=== PATIENT | female | born 1955 | race Caucasian/White ===

== ENCOUNTER → 2016-09-30 | Outpatient (CLI) | payer OTHER ==
--- NOTE | 2016-09-30 16:09 | XR ---
Lumbosacral spine HISTORY: Low back pain, M 54.5 5 views of the lumbar spine No comparisons There is no spondylolysis or spondylolisthesis. Mild levoscoliosis centered at L3. There is multileve l spondylosis present. Loss of disc height at the intervertebral levels. Decreased bone mineralizatio n is present. Schmorl's is present in the posterior elements of the lumbosacral junction. There are a therosclerotic vascular calcifications. IMPRESSION: Degenerative disc disease, osteopenia and scoliosis.
== END | disposition home or self-care (01) ==
LOC: RADXRMAIN 15:07
PROVIDERS: ATTEND Family Medicine
DX: M51.36 Other intervertebral disc degeneration, lumbar region (principal); M85.88 Other specified disorders of bone density and structure, other site; M41.86 Other forms of scoliosis, lumbar region
CPT/HCPCS: 72110

== ENCOUNTER → 2016-10-24 | Outpatient (CLI) | payer OTHER ==
--- NOTE | 2016-10-27 10:09 | MM ---
Reason for exam: screening (asymptomatic). Last mammogram was performed 1 year and 8 months ago. History: Patient is postmenopausal and is nulliparous. Family history of breast cancer in maternal aunt, breast cancer in paternal grandmother, breast cancer in mother at age 68, and breast cancer in paternal aunt at age 70. Physical Findings: A clinical breast exam by your physician is recommended on an annual basis and results should be correlated with mammographic findings. MG Screening Mammo w CAD Bilateral CC and MLO view(s) were taken. Prior study comparison: March 02, 2015, bilateral MG screening mammo w CAD. February 07, 2013, bilateral digital screening mammo w/CAD. There are scattered fibroglandular densities. No significant changes when compared with prior studies. ASSESSMENT: Negative, BI-RAD 1 RECOMMENDATION: Routine screening mammogram of both breasts in 1 year.
== END | disposition home or self-care (01) ==
LOC: RADMAMWWP 16:35
PROVIDERS: ATTEND Obstetrics & Gynecology
DX: Z12.31 Encounter for screening mammogram for malignant neoplasm of breast (principal)

== ENCOUNTER → 2016-12-26 | Outpatient (CLI) | payer OTHER ==
[2016-12-26 08:31] LABS: CH 29.9; CHCM 32.9; HCT 46.6 % (34.0-46.0); HDW 2.46; HGB 14.9 gm/dL (11.4-16.0); MCH 29.2 pg (25.0-35.0); MCV 91.2 fL (80.0-100.0); Mean Platelet Volume 7.2; RBC 5.11 m/uL (3.80-5.40); RDW 13.4 % (11.5-15.5); WBC 6.1 k/uL (3.8-10.6)
[2016-12-26 08:41] LABS: ALT 59 U/L (9-52); AST 30 U/L (14-36); Alkaline Phosphatase 78 U/L (38-126); Anion Gap 12 mmol/L; Blood Urea Nitrogen 15 mg/dL (7-17); Calcium 9.7 mg/dL (8.4-10.2); Carbon Dioxide 25 mmol/L (22-30); Chloride 100 mmol/L (98-107); Cholesterol 216 mg/dL (<200); Glucose 276 mg/dL (74-99); HDL Cholesterol 56 mg/dL (40-60); Non-African American GFR(MDRD) >60 (>60 ml/min/1.73 sqM); Potassium 4.7 mmol/L (3.5-5.1); Sodium 137 mmol/L (137-145); Total Bilirubin 0.8 mg/dL (0.2-1.3); Total Protein 7.3 g/dL (6.3-8.2)
== END | disposition home or self-care (01) ==
LOC: LABWHC1 07:25
PROVIDERS: ATTEND Internal Medicine
DX: E78.00 Pure hypercholesterolemia, unspecified (principal); E03.9 Hypothyroidism, unspecified; E55.9 Vitamin D deficiency, unspecified; I10 Essential (primary) hypertension
CPT/HCPCS: 36415; 80053; 80061; 82306; 84439; 84443; 85027

== ENCOUNTER → 2017-02-10 | Outpatient (CLI) | payer OTHER ==
[2017-02-10 10:23] LABS: T4, Free (Free Thyroxine) 1.3 ng/dL (0.78-2.19)
== END | disposition home or self-care (01) ==
LOC: LABWHC1 08:20
PROVIDERS: ATTEND Internal Medicine
DX: E03.9 Hypothyroidism, unspecified (principal); I10 Essential (primary) hypertension; R73.02 Impaired glucose tolerance (oral); E55.9 Vitamin D deficiency, unspecified
CPT/HCPCS: 36415; 80061; 84439; 84443

== ENCOUNTER → 2017-03-30 | Outpatient (CLI) | payer OTHER ==
[2017-03-30 09:08] LABS: T4, Free (Free Thyroxine) 1.29 ng/dL (0.78-2.19)
[2017-03-30 17:39] LABS: Hemoglobin A1C 7.8 % (4.0-6.0)
== END | disposition home or self-care (01) ==
LOC: LABWHC1 07:05
PROVIDERS: ATTEND Internal Medicine
DX: E03.9 Hypothyroidism, unspecified (principal); E55.9 Vitamin D deficiency, unspecified; R73.02 Impaired glucose tolerance (oral)
CPT/HCPCS: 36415; 82306; 83036; 84439; 84443

== ENCOUNTER → 2017-06-29 | Outpatient (CLI) | payer OTHER ==
[2017-06-29 07:51] LABS: ALT 27 U/L (9-52); AST 19 U/L (14-36); Albumin 4.4 g/dL (3.5-5.0); Alkaline Phosphatase 60 U/L (38-126); Anion Gap 15 mmol/L; Blood Urea Nitrogen 14 mg/dL (7-17); Calcium 9.9 mg/dL (8.4-10.2); Carbon Dioxide 28 mmol/L (22-30); Chloride 102 mmol/L (98-107); Cholesterol 193 mg/dL (<200); Glucose 137 mg/dL (74-99); HDL Cholesterol 60 mg/dL (40-60); LDL Cholesterol,Calculated 108 mg/dL (0-99); Potassium 4.4 mmol/L (3.5-5.1); Sodium 145 mmol/L (137-145); Total Bilirubin 0.7 mg/dL (0.2-1.3); Total Protein 7.3 g/dL (6.3-8.2); Triglycerides 123 mg/dL (<150)
[2017-06-29 08:47] LABS: T4, Free (Free Thyroxine) 1.71 ng/dL (0.78-2.19)
[2017-06-29 11:46] LABS: Hemoglobin A1C 6.9 % (4.0-6.0)
== END | disposition home or self-care (01) ==
LOC: LABWHC1 06:41
PROVIDERS: ATTEND Internal Medicine
DX: E78.2 Mixed hyperlipidemia (principal); E11.9 Type 2 diabetes mellitus without complications; E55.9 Vitamin D deficiency, unspecified; E03.9 Hypothyroidism, unspecified
CPT/HCPCS: 36415; 80053; 80061; 82306; 83036; 84439; 84443

== ENCOUNTER 2017-08-08 08:54 | Emergency (ER) | payer OTHER ==
[2017-08-08 08:59] VITALS: TEMP 97.9
--- NOTE | 2017-08-08 10:11 | ED ---
Fall HPI - General Chief Complaint: Fall Stated Complaint: Fell right side pain Time Seen by Provider: 08/08/17 09:05 Source: patient, RN notes reviewed, old records reviewed Mode of arrival: ambulatory - History of Present Illness Initial Comments: Patient is a 61-year-old female presents emergency Department chief complaint of fall on morning. She reports that she was at work and she tripped over a curb causing the fall. She reports pain over her right shoulder hand, and ribs and bilateral knees. Patient states that she's been able to ambulate without difficulty. She reports over the past few days she's been having increased pain and not seem to get any better. She wanted to come to rule out any fractures. Patient states that she has no peripheral paresthesias. Denies any other head injury or neck injury or loss consciousness related to the fall.Patient denies any recent fever, chills, shortness of breath, chest pain, back pain, abdominal pain, nausea vomiting, numbness or tingling, dysuria or hematuria, constipation or diarrhea, headaches or visual changes, or any other current symptoms - Related Data Home Medications Medication Instructions Recorded Confirmed Ibuprofen [Motrin] 800 mg PO Q8HR PRN 10/02/14 03/24/17 Levothyroxine Sodium [Synthroid] 50 mcg PO DAILY 10/02/14 03/24/17 Verapamil HCl [Verapamil ER] 240 mg PO DAILY 10/02/14 03/24/17 Losartan Potassium [Cozaar] 25 mg PO DAILY 03/24/17 03/24/17 hydrALAZINE HCL 25 mg PO BID 03/24/17 03/24/17 Previous Rx's Medication Instructions Recorded Acetaminophen-Codeine 300-30mg 1 tab PO Q4H PRN 3 Days #18 tablet 08/08/17 [Tylenol w/codeine #3] Ibuprofen [Motrin] 600 mg PO Q6HR PRN #20 tab 08/08/17 Allergies Allergy/AdvReac Type Severity Reaction Status Date / Time amoxicillin trihydrate Allergy Nausea & Verified 08/08/17 08:59 [From Augmentin] Vomiting ciprofloxacin [From Cipro] Allergy Nausea & Verified 08/08/17 08:59 Vomiting ciprofloxacin HCl Allergy Nausea & Verified 08/08/17 08:59 [From Cipro] Vomiting indomethacin [From Indocin] Allergy Unknown Verified 08/08/17 08:59 indomethacin sodium Allergy Unknown Verified 08/08/17 08:59 [From Indocin] phenazopyridine HCl Allergy Unknown Verified 08/08/17 08:59 [From Pyridium] potassium clavulanate Allergy Nausea & Verified 08/08/17 08:59 [From Augmentin] Vomiting sulfamethoxazole Allergy Unknown Verified 08/08/17 08:59 [From Bactrim] trimethoprim [From Bactrim] Allergy Unknown Verified 08/08/17 08:59 Review of Systems ROS Statement: Those systems with pertinent positive or pertinent negative responses have been documented in the HPI. ROS Other: All systems not noted in ROS Statement are negative. Past Medical History Past Medical History: Diabetes Mellitus, Hypertension, Thyroid Disorder Additional Past Medical History / Comment(s): diet controlled diabetes History of Any Multi-Drug Resistant Organisms: None Reported Past Surgical History: Appendectomy, Tubal Ligation Additional Past Surgical History / Comment(s): carpal tunnel surgery bilaterally Past Psychological History: No Psychological Hx Reported Smoking Status: Never smoker Past Alcohol Use History: Rare Past Drug Use History: None Reported General Exam - General Exam Comments Initial Comments: Is a 61-year-old female. Alert and oriented. No significant distress. Limitations: no limitations General appearance: alert, in no apparent distress Head exam: Present: atraumatic, normocephalic, normal inspection Eye exam: Present: normal appearance, PERRL, EOMI. Absent: scleral icterus, conjunctival injection, periorbital swelling ENT exam: Present: normal exam, mucous membranes moist Neck exam: Present: normal inspection. Absent: tenderness, meningismus, lymphadenopathy Respiratory exam: Present: normal lung sounds bilaterally. Absent: respiratory distress, wheezes, rales, rhonchi, stridor Cardiovascular Exam: Present: regular rate, normal rhythm, normal heart sounds. Absent: systolic murmur, diastolic murmur, rubs, gallop, clicks GI/Abdominal exam: Present: soft, normal bowel sounds. Absent: distended, tenderness, guarding, rebound, rigid Extremities exam: Present: full ROM, normal capillary refill. Absent: tenderness, pedal edema, joint swelling, calf tenderness Right Shoulder Exam: Present: tenderness over AC joint. Absent: normal inspection ( Social and separation of the before meals joint.), full ROM (Vision is pain with range of motion of the shoulder.) Upper Arm exam: Present: normal inspection, full ROM Elbow exam: Present: normal inspection, full ROM Forearm Wrist exam: Present: normal inspection, full ROM Hand Wrist exam: Present: normal inspection, full ROM Neuro motor exam: Present: wrist extension intact, thumb opposition intact, thumb IP flexion intact, thumb adduction intact, fingers 2-5 abduction intact Right Upper Leg exam: Present: normal inspection, full ROM Knee exam: Present: full ROM. Absent: normal inspection (Small abrasion over the knee.), tenderness, swelling, abrasion Lower Leg exam: Present: normal inspection, full ROM Ankle exam: Present: normal inspection, full ROM Back exam: Present: normal inspection Neurological exam: Present: alert, oriented X3, CN II-XII intact Psychiatric exam: Present: normal affect, normal mood Skin exam: Present: warm, dry, intact, normal color. Absent: rash Course Vital Signs 08/08/17 08:55 Temperature 97.9 F Pulse Rate 82 Respiratory 18 Rate Blood Pressure 157/90 O2 Sat by Pulse 98 Oximetry Medical Decision Making - Medical Decision Making 61-year-old female with chief complaint of right-sided rib, shoulder and knee pain and left knee pain after fall. Patient had x-rays of the shoulder ribs knees. No evidence of any fractures. There is evidence of before meals separation over the right shoulder. Patient was placed in a sling and wrap of the wrist. Patient informed of x-ray results. Advised follow-up with metallurgical specialist. We'll discharge the Patient was short course of pain medicine. Return parameters were discussed. - Radiology Data Radiology results: report reviewed Patient is right shoulder x-ray shows correlate for before meals separation. Rib x-rays negative for any acute abnormality. No fracture dislocation evident bilateral knees. No fracture dislocation in the hand or wrist. Disposition Clinical Impression: AC separation, Fall, Rib contusion Disposition: HOME SELF-CARE Condition: Good Instructions: Fall Prevention for Older Adults (ED), Tendon Rupture (ED), Shoulder Sprain (ED) Additional Instructions: Patient is follow-up with metallurgical specialist. Wear this sling. Return to the emergency department if any alarming signs or symptoms occur. Prescriptions: Acetaminophen-Codeine 300-30mg [Tylenol w/codeine #3] 1 tab PO Q4H PRN 3 Days # 18 tablet PRN Reason: Pain Ibuprofen [Motrin] 600 mg PO Q6HR PRN #20 tab PRN Reason: Pain Is patient prescribed a controlled substance at d/c from ED?: Yes When asked, does pt state using other controlled substances?: No If prescribed controlled substance>3 days was MAPS reviewed?: Prescribed <3 Days If opioid is for acute pain is fill amount 7 days or less?: Yes If Rx opioid, was Start Talking consent form obtained?: Yes Referrals: Ayaan Peña MD [Primary Care Provider] - 1-2 days Nini Davis PAC [PHYSICIAN MACHINE II CUTTER] - 1-2 days Time of Disposition: 10:43
--- NOTE | 2017-08-08 10:27 | XR ---
Chest x-ray with right RIBS HISTORY: Trauma and pain Frontal view of the chest and 4 views of the right ribs are submitted, no comparisons There is no evident airspace disease, pneumothorax, or pleural effusion. Cardiac mediastinal silhouet te, pulmonary vascularity and zion are within normal limits. No evident displaced rib fracture. IMPRESSION: No acute abnormality evident
--- NOTE | 2017-08-08 10:29 | XR ---
Bilateral knees HISTORY: Pain 2 views of each knee are submitted on a total of 4 images. There is marked osteoarthritic change present bilaterally. No evident joint effusion. Soft tissue angelina cifications are likely vascular within the proximal left leg. There may be loose body within the righ t knee. Bone mineralization maintained. IMPRESSION: No fracture or dislocation evident.
--- NOTE | 2017-08-08 10:32 | XR ---
Right shoulder HISTORY: Trauma and pain 3 views of the right shoulder Arthropathy present at the acromion clavicular joint. Slight distal clavicular superior displacement in relation to the acromion is noted on the frontal view. Bone mineralization is maintained. Right gonzalo ng apex as visualized is normal. IMPRESSION: Correlate for acromioclavicular separation.
--- NOTE | 2017-08-08 10:33 | XR ---
Right hand HISTORY: Trauma and pain 3 views of the right hand Small ossific density at the interphalangeal joint of the first through fourth digits thought to be w ell-corticated and chronic. Some mild osteoarthritic changes are present. Alignment and bone minerali zation are maintained. IMPRESSION: No acute fracture or dislocation.
[2017-08-08 11:10] VITALS: BP 146/79; PULSE 86; RESP 16
== END 2017-08-08 11:10 | disposition home or self-care (01) ==
LOC: EC 08:54
DX: S43.101A Unspecified dislocation of right acromioclavicular joint, initial encounter (principal); S20.211A Contusion of right front wall of thorax, initial encounter; S80.211A Abrasion, right knee, initial encounter; M25.562 Pain in left knee; M79.641 Pain in right hand; E11.9 Type 2 diabetes mellitus without complications; I10 Essential (primary) hypertension; E07.9 Disorder of thyroid, unspecified; Z79.899 Other long term (current) drug therapy; Z88.0 Allergy status to penicillin; Z88.1 Allergy status to other antibiotic agents; Z88.6 Allergy status to analgesic agent; Z98.890 Other specified postprocedural states; W18.09XA Striking against other object with subsequent fall, initial encounter; Y92.69 Other specified industrial and construction area as the place of occurrence of the external cause
CPT/HCPCS: 99284

== ENCOUNTER → 2017-09-25 | Outpatient (CLI) | payer OTHER | END | disposition home or self-care (01) | LOC: LABWHC1 17:13 | PROVIDERS: ATTEND Internal Medicine | DX: E55.9 Vitamin D deficiency, unspecified (principal); E03.9 Hypothyroidism, unspecified | CPT/HCPCS: 36415; 82306; 84443 ==

== ENCOUNTER → 2017-11-19 | Outpatient (CLI) | payer OTHER ==
--- NOTE | 2017-11-19 15:02 | BD ---
EXAMINATION TYPE: Axial Bone Density DATE OF EXAM: 11/19/2017 COMPARISON: 05.06.2013 CLINICAL HISTORY: 62 YR OLD FEMALE.....ICD-10 CODE: Z13.820 SCREENING Height: 62 Weight: 250 FRAX RISK QUESTIONS: NOTHING TO NOTE HERE. RISK FACTORS HISTORY OF: NO FRACTURES SINCE THE AGE OF 50 YRS OLD Postmenopausal woman: YES AT AGE 55, NATURAL MEDICATIONS: Thyroid Medications: YES, GENERIC SYNTHROID, FOR ABOUT 5 YRS Additional Medications: BP MEDS, ANTI-GAS MEDS, VIT D, Additional History: DIABETIC, DIET CONTROLLED, EXAM MEASUREMENTS: Bone mineral densitometry was performed using the [employer] System. Bone mineral density as measured about the Lumbar spine is: ----- L1-L4(G/cm2): 1.360 T Score Values are as follows: ----- L1: 1.9 ----- L2: 1.4 ----- L3: 1.6 ----- L4: 1.1 ----- L1-L4: 1.5 Bone mineral density has: Increased 5.3% since study of: 05.06.2013 Bone mineral density about the R hip (g/cm2): 1.136 Bone mineral density about the L hip (g/cm2): 1.141 T Score values are as follows: -----R Neck: 0.1 -----L Neck: -0.2 -----R Total: 1.0 -----L Total: 1.1 Bone mineral density has: Decreased -1.3% since study of: 05.06.2013 FRAX%s: THERE IS A 5.6% CHANCE FOR A MAJOR OSTEOPOROTIC FX AND A 0.1% FOR HIP FX.....PROBABILITY OF FX IN 10 YRS TIME IMPRESSION: Normal (Values between +1 and -1 indicate normal bone mass). Consider repeating this study in 5 year s or sooner if there is some new clinical indication. NOTE: T-SCORE=SD OF THE YOUNG ADULT MEAN.
--- NOTE | 2017-11-23 08:46 | MM ---
Reason for exam: screening (asymptomatic). Last mammogram was performed 1 year and 1 month ago. History: Patient is postmenopausal and is nulliparous. Family history of breast cancer in maternal aunt, breast cancer in paternal grandmother, breast cancer in mother at age 68, and breast cancer in paternal aunt at age 70. Physical Findings: A clinical breast exam by your physician is recommended on an annual basis and results should be correlated with mammographic findings. MG Screening Mammo w CAD Bilateral CC and MLO view(s) were taken. Prior study comparison: October 24, 2016, bilateral MG screening mammo w CAD. March 02, 2015, bilateral MG screening mammo w CAD. The breast tissue is almost entirely fat. No significant changes when compared with prior studies. ASSESSMENT: Benign, BI-RAD 2 RECOMMENDATION: Routine screening mammogram of both breasts in 1 year.
== END | disposition home or self-care (01) ==
LOC: RADMAMWWP 11:53
PROVIDERS: ATTEND Obstetrics & Gynecology
DX: Z12.31 Encounter for screening mammogram for malignant neoplasm of breast (principal); Z13.820 Encounter for screening for osteoporosis
CPT/HCPCS: 77067; 77080

== ENCOUNTER → 2017-12-19 | Outpatient (CLI) | payer MEDICARE, OTHER ==
[2017-12-19 18:32] LABS: Hemoglobin A1C 6.8 % (4.0-6.0)
== END | disposition home or self-care (01) ==
LOC: LABWHC1 09:45
PROVIDERS: ATTEND Internal Medicine
DX: E03.9 Hypothyroidism, unspecified (principal); E55.9 Vitamin D deficiency, unspecified; E11.9 Type 2 diabetes mellitus without complications
CPT/HCPCS: 36415; 82306; 83036; 84443

== ENCOUNTER → 2018-11-12 | Outpatient (CLI) | payer MEDICARE ==
[2018-11-12 08:05] LABS: HCT 42.3 % (34.0-46.0); HGB 13.9 gm/dL (11.4-16.0); MCV 91.1 fL (80.0-100.0); Mean Platelet Volume 5.9; Platelet Count 271 k/uL (150-450); RBC 4.64 m/uL (3.80-5.40); RDW 13.5 % (11.5-15.5); WBC 5.6 k/uL (3.8-10.6)
[2018-11-12 13:54] LABS: African American GFR (CKD) 106.9 (60.0-200.0); Albumin 4.7 g/dL (3.80-4.90); Albumin/Globulin Ratio 2.04 (1.60-3.17); Anion Gap 10.7 mmol/L (4.00-12.00); BUN/Creat Ratio 25.71 Ratio (12.00-20.00); Calcium 9.7 mg/dL (8.7-10.3); Carbon Dioxide 25.3 mmol/L (21.6-31.8); Chol/HDL Ratio 3.25; Globulin 2.3 g/dL (1.6-3.3); Potassium 4.5 mmol/L (3.5-5.5); Total Bilirubin 0.6 mg/dL (0.3-1.2)
[2018-11-12 14:31] LABS: Hemoglobin A1C 7.3 % (4.0-6.0)
== END | disposition home or self-care (01) ==
LOC: LABWHC1 07:21
PROVIDERS: ATTEND Internal Medicine
DX: E78.2 Mixed hyperlipidemia (principal); E11.9 Type 2 diabetes mellitus without complications; E55.9 Vitamin D deficiency, unspecified; I10 Essential (primary) hypertension; E03.9 Hypothyroidism, unspecified
CPT/HCPCS: 36415; 80053; 80061; 82043; 82306; 82570; 83036; 84443; 85027

== ENCOUNTER → 2019-01-26 | Outpatient (CLI) | payer MEDICARE ==
--- NOTE | 2019-01-27 13:43 | MM ---
Reason for exam: screening (asymptomatic). Last mammogram was performed 1 year and 2 months ago. History: Patient is postmenopausal and is nulliparous. Family history of breast cancer in maternal aunt, breast cancer in paternal grandmother, breast cancer in mother at age 68, and breast cancer in paternal aunt at age 70. Physical Findings: A clinical breast exam by your physician is recommended on an annual basis and results should be correlated with mammographic findings. MG 3D Screening Mammo W/Cad Bilateral CC and MLO view(s) were taken. Prior study comparison: November 19, 2017, bilateral MG screening mammo w CAD. October 24, 2016, bilateral MG screening mammo w CAD. There are scattered fibroglandular densities. No significant changes when compared with prior studies. ASSESSMENT: Benign, BI-RAD 2 RECOMMENDATION: Routine screening mammogram of both breasts in 1 year.
== END | disposition home or self-care (01) ==
LOC: RADMAMWWP 07:21
PROVIDERS: ATTEND Obstetrics & Gynecology
DX: Z12.31 Encounter for screening mammogram for malignant neoplasm of breast (principal)
CPT/HCPCS: 77063; 77067

== ENCOUNTER → 2019-09-09 | Outpatient (CLI) | payer MEDICARE ==
[2019-09-09 07:46] LABS: HCT 41.7 % (34.0-46.0); HGB 13.5 gm/dL (11.4-16.0); MCH 29.6 pg (25.0-35.0); MCHC 32.3 g/dL (31.0-37.0); MCV 91.5 fL (80.0-100.0); Mean Platelet Volume 7.4; Platelet Count 239 k/uL (150-450); RBC 4.56 m/uL (3.80-5.40); RDW 13.5 % (11.5-15.5); WBC 6.2 k/uL (3.8-10.6)
[2019-09-09 11:54] LABS: Chol/HDL Ratio 3.54; LDL Cholesterol,Calculated 123.2 mg/dL (0.0-131.0); VLDL Calculation 13.8 mg/dL (5.00-40.00)
[2019-09-09 18:18] LABS: Microalbumin Creatinine Ratio <30 mg/g Creat (0-30); Urine Creatinine 54.1 mg/dL
== END | disposition home or self-care (01) ==
LOC: LABWHC1 07:00
PROVIDERS: ATTEND Internal Medicine
DX: E78.2 Mixed hyperlipidemia (principal); E55.9 Vitamin D deficiency, unspecified; I10 Essential (primary) hypertension; E03.9 Hypothyroidism, unspecified; E11.9 Type 2 diabetes mellitus without complications
CPT/HCPCS: 36415; 80061; 82043; 82306; 82570; 84443; 85027

== ENCOUNTER → 2020-02-28 | Outpatient (CLI) | payer MEDICARE ==
--- NOTE | 2020-02-29 11:30 | MM ---
Reason for exam: screening (asymptomatic). Last mammogram was performed 1 year and 1 month ago. History: Patient is postmenopausal and is nulliparous. Family history of breast cancer in maternal aunt, breast cancer in paternal grandmother, breast cancer in mother at age 68, and breast cancer in paternal aunt at age 70. Physical Findings: A clinical breast exam by your physician is recommended on an annual basis and results should be correlated with mammographic findings. MG 3D Screening Mammo W/Cad Bilateral CC and MLO view(s) were taken. Prior study comparison: January 26, 2019, bilateral MG 3d screening mammo w/cad. November 19, 2017, bilateral MG screening mammo w CAD. There are benign appearing round calcifications in the left breast. There is no discrete abnormality. ASSESSMENT: Benign, BI-RAD 2 RECOMMENDATION: Routine screening mammogram of both breasts in 1 year.
== END | disposition home or self-care (01) ==
LOC: RADMAMWWP 07:27
PROVIDERS: ATTEND Obstetrics & Gynecology
DX: Z12.31 Encounter for screening mammogram for malignant neoplasm of breast (principal)
CPT/HCPCS: 77063; 77067

== ENCOUNTER → 2020-10-02 | Outpatient (CLI) | payer MEDICARE ==
[2020-10-02 18:59] LABS: Hemoglobin A1C 6.4 % (4.0-6.0)
[2020-10-02 20:14] LABS: African American GFR (CKD) 105.4 (60.0-200.0); Albumin 4.4 g/dL (3.80-4.90); Albumin/Globulin Ratio 1.76 (1.60-3.17); Anion Gap 9.9 mmol/L (4.00-12.00); Calcium 9.4 mg/dL (8.7-10.3); Carbon Dioxide 25.1 mmol/L (21.6-31.8); Chol/HDL Ratio 3.53; Globulin 2.5 g/dL (1.6-3.3); LDL Cholesterol,Calculated 114.8 mg/dL (0.0-131.0); Non-African American GFR(CKD) 90.9 (60.0-200.0); Potassium 4.1 mmol/L (3.5-5.5); Total Bilirubin 0.7 mg/dL (0.3-1.2); Total Protein 6.9 g/dL (6.2-8.2); VLDL Calculation 24.2 mg/dL (5.00-40.00)
== END | disposition home or self-care (01) ==
LOC: LABWHC1 08:13
PROVIDERS: ATTEND Nurse Practitioner
DX: Z00.00 Encounter for general adult medical examination without abnormal findings (principal); E03.9 Hypothyroidism, unspecified; E11.9 Type 2 diabetes mellitus without complications; E55.9 Vitamin D deficiency, unspecified; E66.01 Morbid (severe) obesity due to excess calories
CPT/HCPCS: 36415; 80053; 80061; 82306; 83036; 84443

== ENCOUNTER 2021-02-13 16:16 | Inpatient (IN) | payer MEDICARE ==
--- NOTE | 2021-02-13 17:29 | ED ---
General Adult HPI <Michelle Steven - Last Filed: 02/13/21 17:29> - General Source: RN notes reviewed, old records reviewed <Uriah Mejia - Last Filed: 02/14/21 00:21> - General Stated complaint: Low O2 83-85, Home pulseox Time Seen by Provider: 02/13/21 17:27 - History of Present Illness Initial comments: Seen in triage for ATP purposes: 65 year-old female patient presents to the emergency department for evaluation of persistent shortness of breath and cough. She tested positive for COVID yesterday at the [facility], but has been having symptoms for over 12 days. Did have O2 saturation in the 80s today so her physician sent her in for evaluation. Reports body aches, shortness of breath, nausea, and generalized weakness. (Michelle Steven) Patient is a 65-year-old female with past medical history remarkable for diet- controlled diabetes mellitus who presents emergency Department complaining of worsening Covid symptoms. She has had symptoms for at least one week. Tested positive for Covid yesterday. Presents emergency Department because at home, oxygen saturation level dropped into the 80%'s. Currently endorses worsening exertional shortness of breath. Endorses other URI symptoms including rhinorrhea. Denies any chest pain, abdominal pain, nausea, vomiting, diarrhea. Patient was not vaccinated for COVID-19. She has no other acute complaints at this time. Is not normally on oxygen at home. Has no history of lung disease. I evaluated the patient when she was placed in a room.Endorses body aches, nausea but no vomiting, as well as generalized weakness.Patient was evaluated when she was placed in a room. (Uriah Mejia) - Related Data Home Medications Medication Instructions Recorded Confirmed Ibuprofen [Motrin] 400 mg PO Q8HR PRN 10/02/14 02/13/21 Verapamil HCl [Verapamil ER] 240 mg PO DAILY 10/02/14 02/13/21 Losartan Potassium [Cozaar] 25 mg PO DAILY 03/24/17 02/13/21 Cider Vinegar [Apple Cider Vinegar] 300 mg PO DAILY 02/13/21 02/13/21 Ergocalciferol (Vitamin D2) 1,250 mcg PO IBARRA 02/13/21 02/13/21 [Drisdol (50,000 Iu)] Levothyroxine Sodium 112 mcg PO DAILY 02/13/21 02/13/21 Allergies Allergy/AdvReac Type Severity Reaction Status Date / Time amoxicillin trihydrate Allergy Nausea & Verified 02/13/21 21:27 [From Augmentin] Vomiting ciprofloxacin [From Cipro] Allergy Nausea & Verified 02/13/21 21:27 Vomiting ciprofloxacin HCl Allergy Nausea & Verified 02/13/21 21:27 [From Cipro] Vomiting indomethacin [From Indocin] Allergy Rash/Hives Verified 02/13/21 21:27 indomethacin sodium Allergy Rash/Hives Verified 02/13/21 21:27 [From Indocin] phenazopyridine HCl Allergy Rash/Hives Verified 02/13/21 21:27 [From Pyridium] potassium clavulanate Allergy Nausea & Verified 02/13/21 21:27 [From Augmentin] Vomiting sulfamethoxazole Allergy Rash/Hives Verified 02/13/21 21:27 [From Bactrim] trimethoprim [From Bactrim] Allergy Rash/Hives Verified 02/13/21 21:27 Review of Systems ROS Other: All systems not noted in ROS Statement are negative. <Michelle Steven - Last Filed: 02/13/21 17:29> ROS Other: All systems not noted in ROS Statement are negative. <Uriah Mejia - Last Filed: 02/14/21 00:21> ROS Statement: Those systems with pertinent positive or pertinent negative responses have been documented in the HPI. Review of Systems: CONST: Denies fever EYES: Denies blurry vision ENT: Denies nasal congestion C/V: Denies Chest pain RESP: Endorses shortness of breath GI: Denies abdominal pain : Denies dysuria SKIN: Denies rash. MSK: Denies joint pain. NEURO: Denies headache (Uriah Mejia) Past Medical History Past Medical History: Diabetes Mellitus, Hypertension, Thyroid Disorder Additional Past Medical History / Comment(s): diet controlled diabetes History of Any Multi-Drug Resistant Organisms: None Reported Past Surgical History: Appendectomy, Tubal Ligation Additional Past Surgical History / Comment(s): carpal tunnel surgery bilaterally Past Psychological History: No Psychological Hx Reported Past Alcohol Use History: Rare Past Drug Use History: None Reported <Michelle Steven - Last Filed: 02/13/21 17:29> General Exam <Uriah Mejia - Last Filed: 02/14/21 00:21> - General Exam Comments Initial Comments: General: Appears in no acute distress. HEAD: Normal with no signs of head trauma. EYES: PERRLA, EOMI, conjunctiva normal, no discharge. ENT: Hearing grossly intact, normal oropharynx. RESPIRATORY: Coarse breath sounds bilaterally. No obvious wheezes or rhonchi. No increased work of breathing. Patient is hypoxic, from 87-91% on room air. Hypoxic to 81% on exertion. C/V: Regular rate and rhythm. S1 and S2 auscultated, no edema, peripheral pulses 2+ and intact throughout ABD: Abd is soft, nontender, nondistended EXT: Normal range of motion, no obvious deformity SKIN: No rashes or lesions observed on exposed skin. NEURO: Alert and oriented x 4. Cranial nerves II-XII intact. No focal sensory or strength deficits. (Uriah Mejia) Course Vital Signs 02/13/21 02/13/21 02/13/21 17:26 19:53 20:36 Temperature 98.1 F 98.8 F Pulse Rate 84 76 76 Respiratory 20 18 18 Rate Blood Pressure 131/67 134/69 O2 Sat by Pulse 91 L 89 L 95 Oximetry 02/13/21 22:58 Temperature Pulse Rate 75 Respiratory 18 Rate Blood Pressure 156/133 O2 Sat by Pulse 95 Oximetry Medical Decision Making - Lab Data Result diagrams: 02/13/21 20:21 02/13/21 21:19 - EKG Data -: EKG Interpreted by Wa <Uriah Mejia - Last Filed: 02/14/21 00:21> - Medical Decision Making Based on the patient's presentation and physical exam, she appears to be expressing acute hypoxic respiratory failure secondary to COVID-19 pneumonia. She is on vaccinated. Patient will be placed on oxygen, we will obtain COVID-19 swabs, and COVID-19 workup including EKG, chest x-ray, d-dimer, troponin, basic labs. She was in agreement this plan. She'll be started on Decadron 6 mg twice a day as well as when necessary Tylenol and albuterol. She will require admission to the hospital. Patient's EKG shows no signs of acute ischemia.Patient's chest x-ray shows acute interstitial pulmonary infiltrates likely secondary to COVID-19 infection. Laboratory studies are remarkable for an elevated d-dimer of 1.2. Lactate is within normal limits. LDH is 1000, CRP is 15. Troponin is negative. Covid is positive. On reevaluation, patient's pressure levels improved on 2 L nasal cannula. I discussed with the patient that due to her elevated d-dimer, would like to obtain a CT PE to all the possibility of pulmonary embolism. She was in a greement this plan. CT PE showed no PE, and extensive ground glass opacities. I spoke with the admitting team under Dr. Miller as the patient's PCP works in the same office as Dr. Peña, and she sees RIGGER APPRENTICE Ricky in that office, all of which admit to Paul's group. He accepted the patient. Patient will be admitted in serous condition to telemetry bed. Dr. Flowers of pulmonology was consulted for evaluation in the morning. (Uriah Mejia) - Lab Data Lab Results 02/13/21 02/13/21 02/13/21 Range/Units 20:21 20:21 20:21 WBC 8.2 (3.8-10.6) k/uL RBC 4.66 (3.80-5.40) m/uL Hgb 14.5 (11.4-16.0) gm/dL Hct 41.2 (34.0-46.0) % MCV 88.3 (80.0-100.0) fL MCH 31.1 (25.0-35.0) pg MCHC 35.2 (31.0-37.0) g/dL RDW 13.0 (11.5-15.5) % Plt Count 245 (150-450) k/uL MPV 8.5 Neutrophils % 80 % Lymphocytes % 11 % Monocytes % 4 % Eosinophils % 0 % Basophils % 1 % Neutrophils # 6.5 (1.3-7.7) k/uL Lymphocytes # 0.9 L (1.0-4.8) k/uL Monocytes # 0.4 (0-1.0) k/uL Eosinophils # 0.0 (0-0.7) k/uL Basophils # 0.1 (0-0.2) k/uL PT (9.0-12.0) sec INR (<1.2) APTT (22.0-30.0) sec D-Dimer (<0.60) mg/L FEU Sodium (137-145) mmol/L Potassium (3.5-5.1) mmol/L Chloride (98-107) mmol/L Carbon Dioxide (22-30) mmol/L Anion Gap mmol/L BUN (7-17) mg/dL Creatinine (0.52-1.04) mg/dL Est GFR (CKD-EPI)AfAm (>60 ml/min/1.73 sqM) Est GFR (CKD-EPI)NonAf (>60 ml/min/1.73 sqM) Glucose (74-99) mg/dL Plasma Lactic Acid Smooth 1.2 (0.7-2.0) mmol/L Calcium (8.4-10.2) mg/dL Magnesium (1.6-2.3) mg/dL Total Bilirubin (0.2-1.3) mg/dL AST (14-36) U/L ALT (4-34) U/L Alkaline Phosphatase (38-126) U/L Lactate Dehydrogenase (313-618) U/L Troponin I (0.000-0.034) ng/mL C-Reactive Protein (<1.0) mg/dL Total Protein (6.3-8.2) g/dL Albumin (3.5-5.0) g/dL Coronavirus (PCR) Detected A (Not Detectd) 02/13/21 02/13/21 02/13/21 Range/Units 21:19 21:19 21:19 WBC (3.8-10.6) k/uL RBC (3.80-5.40) m/uL Hgb (11.4-16.0) gm/dL Hct (34.0-46.0) % MCV (80.0-100.0) fL MCH (25.0-35.0) pg MCHC (31.0-37.0) g/dL RDW (11.5-15.5) % Plt Count (150-450) k/uL MPV Neutrophils % % Lymphocytes % % Monocytes % % Eosinophils % % Basophils % % Neutrophils # (1.3-7.7) k/uL Lymphocytes # (1.0-4.8) k/uL Monocytes # (0-1.0) k/uL Eosinophils # (0-0.7) k/uL Basophils # (0-0.2) k/uL PT 10.0 (9.0-12.0) sec INR 0.9 (<1.2) APTT 21.7 L (22.0-30.0) sec D-Dimer 1.20 H (<0.60) mg/L FEU Sodium 132 L (137-145) mmol/L Potassium 3.5 (3.5-5.1) mmol/L Chloride 96 L (98-107) mmol/L Carbon Dioxide 26 (22-30) mmol/L Anion Gap 10 mmol/L BUN 13 (7-17) mg/dL Creatinine 0.57 (0.52-1.04) mg/dL Est GFR (CKD-EPI)AfAm >90 (>60 ml/min/1.73 sqM) Est GFR (CKD-EPI)NonAf >90 (>60 ml/min/1.73 sqM) Glucose 206 H (74-99) mg/dL Plasma Lactic Acid Smooth (0.7-2.0) mmol/L Calcium 8.0 L (8.4-10.2) mg/dL Magnesium 1.9 (1.6-2.3) mg/dL Total Bilirubin 1.0 (0.2-1.3) mg/dL AST 53 H (14-36) U/L ALT 37 H (4-34) U/L Alkaline Phosphatase 56 (38-126) U/L Lactate Dehydrogenase 1066 H (313-618) U/L Troponin I <0.012 (0.000-0.034) ng/mL C-Reactive Protein 15.5 H (<1.0) mg/dL Total Protein 6.2 L (6.3-8.2) g/dL Albumin 3.4 L (3.5-5.0) g/dL Coronavirus (PCR) (Not Detectd) - EKG Data EKG Comments: 12-lead Electrocardiogram Interpretation Note EKG was reviewed and interpreted by myself. 12-lead ECG performed at 2030 is interpreted by me as revealing normal sinus rhythm at a rate of 73 beats per minute. Slight left axis deviation. ND intervals 170 ms, QRS duration is 88 ms, QTc is 438 ms.. There were no ST or T wave abnormalities to suggest myocardial ischemia or injury. R wave progression across the precordium was delayed.. By my interpretation this EKG is non-diagnostic for acute ischemia. (Uriah Morales) Critical Care Time Critical Care Time: Yes Total Critical Care Time: 30 <Uriah Mejia - Last Filed: 02/14/21 00:21> Critical Care Time: Upon my evaluation, this patient had a high probability of imminent or life- threatening deterioration due to hypoxic respiratory failure secondary to COVID- 19 pneumonia, which required my direct attention, intervention, and personal management. I have personally provided 30 minutes of critical care time exclusive of time spent on separately billable procedures. Time includes review of laboratory data, radiology results, discussion with consultants, and monitoring for potential decompensation. Interventions were performed as documented in my note. (Uriah Mejia) Disposition <Michelle Steven - Last Filed: 02/13/21 17:29> <Uriah Mejia - Last Filed: 02/14/21 00:21> Clinical Impression: Pneumonia due to COVID-19 virus, Elevated d-dimer, Acute respiratory failure with hypoxia Disposition: ADMITTED IP TO THIS HOSP Condition: Serious
--- NOTE | 2021-02-13 17:56 | XR ---
EXAMINATION TYPE: XR chest 2V DATE OF EXAM: 02/13/2021 COMPARISON: 08/08/2017 HISTORY: Right-sided rib pain TECHNIQUE: 2 views FINDINGS: There is some pulmonary diffuse interstitial edema. Heart size is normal. There is no defin ite pleural effusion. There no hilar masses. Mediastinum is normal. IMPRESSION: There is interstitial pulmonary edema which is new compared to old exam. This could be ac inupiat pneumonia.
[2021-02-13] MEDS ORDERED: ALBUTEROL HFA INHALER INHALATION PRN (20:17)
[2021-02-13] MEDS ORDERED: ACETAMINOPHEN TAB 325 MG TAB PO PRN (20:17)
[2021-02-13 20:33] LABS: Basophils # (A) 0.1 k/uL (0-0.2); Basophils % (A) 1 %; Eosinophils % (A) 0 %; HCT 41.2 % (34.0-46.0); HGB 14.5 gm/dL (11.4-16.0); Lymphocytes # (A) 0.9 k/uL (1.0-4.8); Lymphocytes % (A) 11 %; MCH 31.1 pg (25.0-35.0); MCHC 35.2 g/dL (31.0-37.0); MCV 88.3 fL (80.0-100.0); Mean Platelet Volume 8.5; Monocytes # (A) 0.4 k/uL (0-1.0); Monocytes % (A) 4 %; Neutrophils # (A) 6.5 k/uL (1.3-7.7); Neutrophils % (A) 80 %; Platelet Count 245 k/uL (150-450); RBC 4.66 m/uL (3.80-5.40); WBC 8.2 k/uL (3.8-10.6)
[2021-02-13] MEDS: DEXAMETHASONE SOD PHOSPHATE 10 MG/ML 1 ML VIAL IVP SCH (20:34)
[2021-02-13 21:46] LABS: ALT 37 U/L (4-34); AST 53 U/L (14-36); African American GFR (CKD) >90 (>60 ml/min/1.73 sqM); Albumin 3.4 g/dL (3.5-5.0); Alkaline Phosphatase 56 U/L (38-126); Anion Gap 10 mmol/L; Blood Urea Nitrogen 13 mg/dL (7-17); Carbon Dioxide 26 mmol/L (22-30); Chloride 96 mmol/L (98-107); Glucose 206 mg/dL (74-99); LDH 1066 U/L (313-618); Magnesium 1.9 mg/dL (1.6-2.3); Non-African American GFR(CKD) >90 (>60 ml/min/1.73 sqM); Potassium 3.5 mmol/L (3.5-5.1); Sodium 132 mmol/L (137-145); Total Protein 6.2 g/dL (6.3-8.2)
[2021-02-13 21:51] LABS: INR 0.9 (<1.2); Partial Thromboplastin Time 21.7 sec (22.0-30.0)
[2021-02-13 22:05] LABS: C Reactive Protein 15.5 mg/dL (<1.0)
[2021-02-13] MEDS ORDERED: methylPREDNISolone SOD SUCCI 125 MG/2 ML VIAL IV STA (22:35)
[2021-02-13] MEDS ORDERED: FAMOTIDINE 20 MG/2 ML VIAL IV STA (22:35)
[2021-02-13] MEDS ORDERED: diphenhydrAMINE 50 MG/ML 1 ML VIAL IVP STA (22:35)
[2021-02-13] MEDS ORDERED: NALOXONE 0.4 MG/ML 1 ML VIAL IV PRN (23:13)
--- NOTE | 2021-02-13 23:48 | CT ---
EXAMINATION TYPE: CT chest angio for PE DATE OF EXAM: 02/13/2021 COMPARISON: None HISTORY: elevated D-dimer CT DLP: 1223 mGycm Automated exposure control for dose reduction was used. CONTRAST: Performed with IV Contrast, patient injected with 70 mL of Isovue 370. Images obtained from the thoracic inlet to the diaphragm with IV contrast. There are Three-D postproc essed images. There is extensive patchy interstitial groundglass pulmonary infiltrates throughout both lungs. Heart appears slightly enlarged. There is no pericardial effusion. There is no mediastinal adenopathy. The re are no hilar masses. There is normal contrast opacification of the pulmonary arteries. There are n o filling defects. The bony thorax is intact. There is no thoracic compression fracture. Sternum is intact. IMPRESSION: No evidence of pulmonary embolism. Extensive bilateral interstitial groundglass pneumonia.
[2021-02-14 08:08] LABS: ALT 40 U/L (4-34); AST 45 U/L (14-36); African American GFR (CKD) >90 (>60 ml/min/1.73 sqM); Albumin 3.5 g/dL (3.5-5.0); Alkaline Phosphatase 68 U/L (38-126); Anion Gap 8 mmol/L; Blood Urea Nitrogen 13 mg/dL (7-17); Calcium 8.7 mg/dL (8.4-10.2); Carbon Dioxide 28 mmol/L (22-30); Chloride 100 mmol/L (98-107); Glucose 311 mg/dL (74-99); Non-African American GFR(CKD) >90 (>60 ml/min/1.73 sqM); Potassium 4.4 mmol/L (3.5-5.1); Sodium 136 mmol/L (137-145); Total Bilirubin 0.9 mg/dL (0.2-1.3); Total Protein 6.6 g/dL (6.3-8.2)
[2021-02-14 08:09] LABS: HCT 42.2 % (34.0-46.0); HGB 14.3 gm/dL (11.4-16.0); MCH 30.7 pg (25.0-35.0); MCHC 33.8 g/dL (31.0-37.0); MCV 90.7 fL (80.0-100.0); Mean Platelet Volume 7.9; Platelet Count 281 k/uL (150-450); RBC 4.65 m/uL (3.80-5.40); RDW 13.5 % (11.5-15.5); WBC 5.4 k/uL (3.8-10.6)
[2021-02-14] MEDS: LOSARTAN 25 MG TAB PO SCH (08:34)
[2021-02-14] MEDS: ENOXAPARIN 40 MG/0.4 ML SYRINGE SQ SCH (08:35)
[2021-02-14] MEDS: LEVOTHYROXINE 112 MCG TAB PO SCH (08:35)
[2021-02-14] MEDS: DEXAMETHASONE SOD PHOSPHATE 10 MG/ML 1 ML VIAL IVP SCH ×2 (08:35→20:51)
[2021-02-14] MEDS ORDERED: VERAPAMIL SR 240 MG TABLET.ER PO SCH (09:00)
[2021-02-14 09:16] LABS: Lymphocytes # (M) 0.38 k/uL (1.0-4.8); Monocytes # (M) 0.05 k/uL (0-1.0); Neutrophils # (M) 4.97 k/uL (1.3-7.7); Neutrophils % (M) 92 %; Nucleated Red Blood Cells 0 /100 WBC (0-0); Total Cells Counted 100
[2021-02-14] MEDS: PANTOPRAZOLE 40 MG TABLET PO SCH (10:40)
[2021-02-14] MEDS ORDERED: LOPERAMIDE 2 MG CAP PO PRN (11:46)
[2021-02-14 12:01] LABS: Glucose,Whole Blood 356 mg/dL (75-99)
[2021-02-14] MEDS: INSULIN ASPART (NovoLOG) 100 UNIT/ML VIAL SQ SCH ×3 (12:27→20:51)
--- NOTE | 2021-02-14 13:34 | P.HPIM ---
History of Present Illness H&P Date: 02/14/21 HISTORY OF PRESENT ILLNESS This is a 65-year-old female patient of Saulo García NP with medical history of hypertension, hypothyroidism, diabetes mellitus type 2 diet controlled. Patient gives history of being sick about 5 days before [place] with a runny nose continued to worsen and then lost her sense of taste and smell last week for about 5 days. 2 days ago she had a Covid test at [place] drive[place]through which was positive. She was monitoring her pulse ox at home and had a drop down to 84%. She had contacted her PCP and was told to come in the hospital. Patient denies having any fever. She complains of shortness of breath, chest congestion, diarrhea which is been going on before [place]. She denies any blood in her stools. She states until now she has been exercising every day until yesterday. She has history of hyperlipidemia and has lost 60 pounds to control cholesterol level. Patient presented to [facility] emergency center. She was found to be afebrile, heart rate 84, blood pressure 131/67, respiratory rate 20, pulse ox 89 % on room air. CBC unremarkable. Sodium 132, potassium 3.5, chloride 96, CO2 26, BUN 13 and creatinine 0.57. Blood sugar 206. D-dimer 1.2. Lactic acid normal. LDH 1066. CRP 15. Pro-calcitonin 0.07. Troponin negative. EKG sinus rhythm with no acute changes. Chest x-ray reveals interstitial pulmonary edema. This could be acute pneumonia. CTA of the chest revealsno evidence of pulmonary embolism. Extensive bilateral interstitial groundglass pneumonia. REVIEW OF SYSTEMS Constitutional: No fever, no chills, no night sweats. No weight change. No weakness, fatigue or lethargy. No daytime sleepiness. EENT: No headache. No blurred vision or double vision, no loss of vision. No loss of Hearing, no ringing in the ears, no dizziness. No nasal drainage or co ngestion. No epistaxis. No sore throat. Lungs: No shortness of breath, cough, no sputum production. No wheezing. Cardiovascular: No chest pain, no lower extremity edema. No palpitations. No paroxysmal nocturnal dyspnea. No orthopnea. No lightheadedness or dizziness. No syncopal episodes. Abdominal: No abdominal pain. No nausea, vomiting. No diarrhea. No constipation. No bloody or tarry stools. No loss of appetite. Genitourinary: No dysuria, increased frequency, urgency. No urinary retention. Musculoskeletal: No myalgias. No muscle weakness, no gait dysfunction, no frequent falls. No back pain. No neck pain. Integumentary: No wounds, no lesions. No rash or pruritus. No unusual bruising. No change in hair or nails. Neurologic: No aphasia. No facial droop. No change in mentation. No head injury. No headache. No paralysis. No paresthesia. Psychiatric: No depression. No anxiety. No mood swings. Endocrine: No abnormal blood sugars. No weight change. No excessive sweating or thirst. No cold intolerance. SOCIAL HISTORY Patient is a lifelong nonsmoker, rare alcohol use, no illicit drug use or marijuana use.] Patient does not have home oxygen, CPAP, nebulizer. She lives at home with her boyfriend of 25 years. FAMILY HISTORY Mother at age 80 from breast cancer with metastatic disease with previous history of colon cancer and also history of end-stage renal disease requiring dialysis. Father from coronary artery disease at approximately age 80. Patient has one sister with COPD. She does not have any children. PHYSICAL EXAMINATION Gen: This is a 65-year-old obese female. Patient is resting in bed appears to be comfortable and in no acute distress. She is currently on oxygen at 3 L nasal cannula. HEENT: Head is atraumatic, normocephalic. Pupils equal, round. Sclerae is anicteric. NECK: Supple. No JVD. No lymphadenopathy. No thyromegaly. LUNGS: Few scattered bilateral rhonchi. No intercostal retractions. HEART: Regular rate and rhythm. No murmur. ABDOMEN: Soft. Bowel sounds are present. No masses. No tenderness. EXTREMITIES: No pedal edema. No calf tenderness. NEUROLOGICAL: Patient is awake, alert and oriented x3. Cranial nerves 2 through 12 are grossly intact. ASSESSMENT AND PLAN 1. Acute hypoxic respiratory failure secondary to Covid 19 pneumonia. Patient has been started on dexamethasone 6 mg IV push twice daily, Lovenox 40 mg subcu daily, albuterol inhaler as needed, Vitamin supplements will be added, consult in place with pulmonary medicine. 2. Hypertension. Continue losartan 25 mg daily, verapamil 240 mg at bedtime. 3. Hypothyroidism. Continue levothyroxine 112 g daily. 4. Diabetes mellitus type 2, diet-controlled. Patient will be placed on NovoLog scale before meals and at bedtime. 5. GI prophylaxis. Protonix. 6. DVT prophylaxis. Lovenox. Patient will be admitted to the hospital for a minimum of 2 night stay. DISCHARGE PLAN Home. Impression and plan of care have been directed as dictated by the signing physician. Phoebe Rausch nurse practitioner acting as scribe for signing physician. Past Medical History Past Medical History: Diabetes Mellitus, Hypertension, Thyroid Disorder Additional Past Medical History / Comment(s): diet controlled diabetes History of Any Multi-Drug Resistant Organisms: None Reported Past Surgical History: Appendectomy, Tubal Ligation Additional Past Surgical History / Comment(s): carpal tunnel surgery bilaterally Past Anesthesia/Blood Transfusion Reactions: No Reported Reaction Past Psychological History: No Psychological Hx Reported Smoking Status: Never smoker Past Alcohol Use History: Rare Past Drug Use History: None Reported - Past Family History Sister(s) Family Medical History: COPD, Hypertension Medications and Allergies Home Medications Medication Instructions Recorded Confirmed Type Ibuprofen [Motrin] 400 mg PO Q8HR PRN 10/02/14 02/13/21 History Verapamil HCl [Verapamil ER] 240 mg PO 1700 10/02/14 02/14/21 History Losartan Potassium [Cozaar] 25 mg PO DAILY 03/24/17 02/13/21 History Cider Vinegar [Apple Cider Vinegar] 300 mg PO DAILY 02/13/21 02/13/21 History Ergocalciferol (Vitamin D2) 1,250 mcg PO IBARRA 02/13/21 02/13/21 History [Drisdol (50,000 Iu)] Levothyroxine Sodium 112 mcg PO DAILY 02/13/21 02/13/21 History Allergies Allergy/AdvReac Type Severity Reaction Status Date / Time amoxicillin trihydrate Allergy Nausea & Verified 02/13/21 21:27 [From Augmentin] Vomiting ciprofloxacin [From Cipro] Allergy Nausea & Verified 02/13/21 21:27 Vomiting ciprofloxacin HCl Allergy Nausea & Verified 02/13/21 21:27 [From Cipro] Vomiting indomethacin [From Indocin] Allergy Rash/Hives Verified 02/13/21 21:27 indomethacin sodium Allergy Rash/Hives Verified 02/13/21 21:27 [From Indocin] phenazopyridine HCl Allergy Rash/Hives Verified 02/13/21 21:27 [From Pyridium] potassium clavulanate Allergy Nausea & Verified 02/13/21 21:27 [From Augmentin] Vomiting sulfamethoxazole Allergy Rash/Hives Verified 02/13/21 21:27 [From Bactrim] trimethoprim [From Bactrim] Allergy Rash/Hives Verified 02/13/21 21:27 Physical Exam Vitals: Vital Signs Temp Pulse Resp BP Pulse Ox 02/14/21 08:02 92 L 02/14/21 06:44 98.8 F 70 18 140/85 92 L 02/14/21 01:00 71 18 146/88 93 L 02/13/21 22:58 75 18 156/133 95 02/13/21 20:36 76 18 95 02/13/21 19:53 98.8 F 76 18 134/69 89 L 02/13/21 17:26 98.1 F 84 20 131/67 91 L Intake and Output 02/13/21 02/14/21 02/14/21 22:59 06:59 14:59 Other: Weight 112.491 kg 112.491 kg Results CBC & Chem 7: 02/14/21 07:32 02/14/21 07:32 Labs: Abnormal Lab Results - Last 24 Hours (Table) 02/13/21 02/13/21 02/13/21 Range/Units 20:21 20:21 21:19 Lymphocytes # 0.9 L (1.0-4.8) k/uL Lymphocytes # (Manual) (1.0-4.8) k/uL APTT (22.0-30.0) sec D-Dimer (<0.60) mg/L FEU Sodium 132 L (137-145) mmol/L Chloride 96 L (98-107) mmol/L Glucose 206 H (74-99) mg/dL Calcium 8.0 L (8.4-10.2) mg/dL Ferritin 1831.0 H (10.0-291.0) ng/mL AST 53 H (14-36) U/L ALT 37 H (4-34) U/L Lactate Dehydrogenase 1066 H (313-618) U/L C-Reactive Protein 15.5 H (<1.0) mg/dL Total Protein 6.2 L (6.3-8.2) g/dL Albumin 3.4 L (3.5-5.0) g/dL Coronavirus (PCR) Detected A (Not Detectd) 02/13/21 02/14/21 02/14/21 Range/Units 21:19 07:32 07:32 Lymphocytes # (1.0-4.8) k/uL Lymphocytes # (Manual) 0.38 L (1.0-4.8) k/uL APTT 21.7 L (22.0-30.0) sec D-Dimer 1.20 H (<0.60) mg/L FEU Sodium 136 L (137-145) mmol/L Chloride (98-107) mmol/L Glucose 311 H (74-99) mg/dL Calcium (8.4-10.2) mg/dL Ferritin (10.0-291.0) ng/mL AST 45 H (14-36) U/L ALT 40 H (4-34) U/L Lactate Dehydrogenase (313-618) U/L C-Reactive Protein (<1.0) mg/dL Total Protein (6.3-8.2) g/dL Albumin (3.5-5.0) g/dL Coronavirus (PCR) (Not Detectd) Thrombosis Risk Factor Assmnt - Choose All That Apply Each Factor Represents 1 point: Obesity (BMI >25) Thrombosis Risk Factor Assessment Total Risk Factor Score: 1 Thrombosis Risk Factor Assessment Level: Low Risk
--- NOTE | 2021-02-14 16:31 | P.CNPUL ---
History of Present Illness Consult date: 02/14/21 Requesting physician: Phoebe Rausch Reason for consult: dyspnea Chief complaint: Shortness of breath and hypoxia History of present illness: This 65-year-old white female patient with past medical history of diet- controlled diabetes mellitus, hypertension, hypothyroidism, obesity, previous history of appendectomy and tubal ligation, who presented to the emergency department on 02/13/2021 for evaluation of persistent shortness of breath and cough, she reports symptom onset on 01/28/2022, she tested positive on 01/30/2022 for COVID 19. She is not vaccinated against COVID-19. Yesterday she noted that her pulse ox was low between 80 and 85% which was a change from previously being in the mid 90s range. In addition she was having symptoms of shortness of breath, cough, body aches, nausea and generalized weakness. Chest x-ray showed interstitial pulmonary edema. Her lab work showed white blood cell count of 8.2, hemoglobin of 14.5, lymphocyte count is 0.9, d-dimer was 1.2, sodium was 132, potassium is 3.5, chloride is 96, BUN is 13, creatinine 0.57, ferritin is 1831, AST was 53, ALT was 37, LDH was 1066, troponin was less than 0.012, CRP was 15.5, pro-calcitonin level was negative at 0.07, patient has been started Decadron 6 mg twice daily, multivitamins including vitamin C, vitamin D and zinc, she is on prophylactic dose of Lovenox. She is currently requiring 4 L of oxygen her pulse ox is 88-92%. Review of Systems All systems: negative Constitutional: Reports fatigue, Reports weakness, Denies chills, Denies fever Eyes: denies blurred vision, denies pain Ears, nose, mouth and throat: Denies headache, Denies sore throat Cardiovascular: Reports dyspnea on exertion, Denies chest pain, Denies shortness of breath Respiratory: Reports cough, Reports dyspnea Gastrointestinal: Denies abdominal pain, Denies diarrhea, Denies nausea, Denies vomiting Genitourinary: Denies dysuria, Denies hematuria Musculoskeletal: Denies myalgias Integumentary: Denies pruritus, Denies rash Neurological: Denies numbness, Denies weakness Psychiatric: Denies anxiety, Denies depression Endocrine: Denies fatigue, Denies weight change Past Medical History Past Medical History: Diabetes Mellitus, Hypertension, Thyroid Disorder Additional Past Medical History / Comment(s): diet controlled diabetes History of Any Multi-Drug Resistant Organisms: None Reported Past Surgical History: Appendectomy, Tubal Ligation Additional Past Surgical History / Comment(s): carpal tunnel surgery bilaterally Past Anesthesia/Blood Transfusion Reactions: No Reported Reaction Past Psychological History: No Psychological Hx Reported Smoking Status: Never smoker Past Alcohol Use History: Rare Past Drug Use History: None Reported - Past Family History Sister(s) Family Medical History: COPD, Hypertension Medications and Allergies Home Medications Medication Instructions Recorded Confirmed Type Ibuprofen [Motrin] 400 mg PO Q8HR PRN 10/02/14 02/13/21 History Verapamil HCl [Verapamil ER] 240 mg PO 1700 10/02/14 02/14/21 History Losartan Potassium [Cozaar] 25 mg PO DAILY 03/24/17 02/13/21 History Cider Vinegar [Apple Cider Vinegar] 300 mg PO DAILY 02/13/21 02/13/21 History Ergocalciferol (Vitamin D2) 1,250 mcg PO IBARRA 02/13/21 02/13/21 History [Drisdol (50,000 Iu)] Levothyroxine Sodium 112 mcg PO DAILY 02/13/21 02/13/21 History Allergies Allergy/AdvReac Type Severity Reaction Status Date / Time amoxicillin trihydrate Allergy Nausea & Verified 02/13/21 21:27 [From Augmentin] Vomiting ciprofloxacin [From Cipro] Allergy Nausea & Verified 02/13/21 21:27 Vomiting ciprofloxacin HCl Allergy Nausea & Verified 02/13/21 21:27 [From Cipro] Vomiting indomethacin [From Indocin] Allergy Rash/Hives Verified 02/13/21 21:27 indomethacin sodium Allergy Rash/Hives Verified 02/13/21 21:27 [From Indocin] phenazopyridine HCl Allergy Rash/Hives Verified 02/13/21 21:27 [From Pyridium] potassium clavulanate Allergy Nausea & Verified 02/13/21 21:27 [From Augmentin] Vomiting sulfamethoxazole Allergy Rash/Hives Verified 02/13/21 21:27 [From Bactrim] trimethoprim [From Bactrim] Allergy Rash/Hives Verified 02/13/21 21:27 Physical Exam Vitals: Vital Signs Temp Pulse Pulse Resp BP BP Pulse Ox 02/14/21 14:30 98.0 F 74 16 130/75 88 L 02/14/21 10:00 98.3 F 77 16 134/78 89 L 02/14/21 08:02 92 L 02/14/21 06:44 98.8 F 70 18 140/85 92 L 02/14/21 01:00 71 18 146/88 93 L 02/13/21 22:58 75 18 156/133 95 02/13/21 20:36 76 18 95 02/13/21 19:53 98.8 F 76 18 134/69 89 L 02/13/21 17:26 98.1 F 84 20 131/67 91 L Intake and Output 02/14/21 02/14/21 02/14/21 06:59 14:59 22:59 Other: # Voids 3 Weight 112.491 kg GENERAL EXAM: Alert, very pleasant, 65-year-old white female, on 4 L of oxygen with a pulse ox between 80-92% comfortable in no apparent distress. HEAD: Normocephalic/atraumatic. EYES: Normal reaction of pupils, equal size. Conjunctiva pink, sclera white. NOSE: Clear with pink turbinates. THROAT: No erythema or exudates. NECK: No masses, no JVD, no thyroid enlargement, no adenopathy. CHEST: No chest wall deformity. Symmetrical expansion. LUNGS: Equal air entry with diffuse crackles CVS: Regular rate and rhythm, normal S1 and S2, no gallops, no murmurs, no rubs ABDOMEN: Soft, nontender. No hepatosplenomegaly, normal bowel sounds, no guarding or rigidity. EXTREMITIES: No clubbing, no edema, no cyanosis, 2+ pulses and upper and lower extremities. MUSCULOSKELETAL: Muscle strength and tone normal. SPINE: No scoliosis or deformity SKIN: No rashes CENTRAL NERVOUS SYSTEM: Alert and oriented -3. No focal deficits, tone is normal in all 4 extremities. PSYCHIATRIC: Alert and oriented -3. Appropriate affect. Intact judgment and insight. Results - Laboratory Findings CBC and BMP: 02/14/21 07:32 02/14/21 07:32 PT/INR, D-dimer PT 10.0 sec (9.0-12.0) 02/13/21 21:19 INR 0.9 (<1.2) 02/13/21 21:19 D-Dimer 1.20 mg/L FEU (<0.60) H 02/13/21 21:19 Abnormal lab findings: Abnormal Labs 02/13/21 02/13/21 02/13/21 20:21 20:21 21:19 Lymphocytes # 0.9 L Lymphocytes # (Manual) APTT D-Dimer Sodium 132 L Chloride 96 L Glucose 206 H POC Glucose (mg/dL) Calcium 8.0 L Ferritin 1831.0 H AST 53 H ALT 37 H Lactate Dehydrogenase 1066 H C-Reactive Protein 15.5 H Total Protein 6.2 L Albumin 3.4 L Coronavirus (PCR) Detected A 02/13/21 02/14/21 02/14/21 21:19 07:32 07:32 Lymphocytes # Lymphocytes # (Manual) 0.38 L APTT 21.7 L D-Dimer 1.20 H Sodium 136 L Chloride Glucose 311 H POC Glucose (mg/dL) Calcium Ferritin AST 45 H ALT 40 H Lactate Dehydrogenase C-Reactive Protein Total Protein Albumin Coronavirus (PCR) 02/14/21 11:59 Lymphocytes # Lymphocytes # (Manual) APTT D-Dimer Sodium Chloride Glucose POC Glucose (mg/dL) 356 H Calcium Ferritin AST ALT Lactate Dehydrogenase C-Reactive Protein Total Protein Albumin Coronavirus (PCR) - Diagnostic Findings Chest x-ray: report reviewed, image reviewed Assessment and Plan Plan: Assessment: #1. Acute hypoxic respiratory failure related to acute COVID-19 related pneumonia, with onset of symptoms on 01/28/2022, tested positive on 01/30/2022, non-vaccinated, admitted to the hospital on 02/13/2021, outside the window for Remdesivir #2. Elevated inflammatory markers related to the above #3. Mild hyponatremia likely hypovolemic, improving #4. Diabetes mellitus type 2, diet controlled, with steroid induced hypoglycemia #5. Morbid obesity with BMI of 38.8 kg/m #6. Hypertension #7. Hypothyroidism Plan: Continue Decadron Continue prophylactic Lovenox We'll continue with COVID-19 multivitamins Patient is outside the window for Remdesivir Continue gentle IV hydration We'll follow patient's d-dimer inflammatory markers We'll follow her clinical course and make recommendations I performed a history & physical examination of the patient and discussed their management with my nurse practitioner, Eleanor Huy. I reviewed the nurse practitioner's note and agree with the documented findings and plan of care. Lung sounds are positive for diffuse crackles throughout the lung woodward. The findings and the impression was discussed with the patient. I attest to the documentation by the nurse practitioner. Time with Patient: Greater than 30
[2021-02-14 16:43] LABS: Glucose,Whole Blood 406 mg/dL (75-99)
[2021-02-14 20:34] LABS: Glucose,Whole Blood 343 mg/dL (75-99)
[2021-02-14] MEDS: VERAPAMIL SR 240 MG TABLET.ER PO SCH (21:10)
[2021-02-15] MEDS: LEVOTHYROXINE 112 MCG TAB PO SCH (05:20)
[2021-02-15 06:47] LABS: Glucose,Whole Blood 323 mg/dL (75-99)
[2021-02-15] MEDS: PANTOPRAZOLE 40 MG TABLET PO SCH (08:05)
[2021-02-15] MEDS: DEXAMETHASONE SOD PHOSPHATE 10 MG/ML 1 ML VIAL IVP SCH ×2 (08:05→20:30)
[2021-02-15] MEDS: ZINC SULFATE 220 MG CAP PO SCH (08:05)
[2021-02-15] MEDS: CHOLECALCIFEROL 25 MCG (1000 IU) TABLET PO SCH (08:05)
[2021-02-15] MEDS: LOSARTAN 25 MG TAB PO SCH (08:05)
[2021-02-15] MEDS: INSULIN ASPART (NovoLOG) 100 UNIT/ML VIAL SQ SCH ×6 (08:05→20:29)
[2021-02-15] MEDS: ASCORBIC ACID 500 MG TAB PO SCH (08:05)
[2021-02-15] MEDS: ENOXAPARIN 40 MG/0.4 ML SYRINGE SQ SCH (08:05)
[2021-02-15 11:19] LABS: Glucose,Whole Blood 355 mg/dL (75-99)
[2021-02-15] MEDS: INSULIN DETEMIR (LEVEMIR) 100 UNIT/ML SYR SQ SCH (12:32)
--- NOTE | 2021-02-15 15:17 | P.PN ---
Subjective Progress Note Date: 02/15/21 HISTORY OF PRESENT ILLNESS This is a 65-year-old female patient of Saulo García NP with medical history of hypertension, hypothyroidism, diabetes mellitus type 2 diet controlled. Patient gives history of being sick about 5 days before [place] with a runny nose continued to worsen and then lost her sense of taste and smell last week for about 5 days. 2 days ago she had a Covid test at [place] drive-through which was positive. She was monitoring her pulse ox at home and had a drop down to 84%. She had contacted her PCP and was told to come in the hospital. Patient denies having any fever. She complains of shortness of breath, chest congestion, diarrhea which is been going on before . She denies any blood in her stools. She states until now she has been exercising every day until yesterday. She has history of hyperlipidemia and has lost 60 pounds to control cholesterol level. Patient presented to [facility] emergency center. She was found to be afebrile, heart rate 84, blood pressure 131/67, respiratory rate 20, pulse ox 89 % on room air. CBC unremarkable. Sodium 132, potassium 3.5, chloride 96, CO2 26, BUN 13 and creatinine 0.57. Blood sugar 206. D-dimer 1.2. Lactic acid normal. LDH 1066. CRP 15. Pro-calcitonin 0.07. Troponin negative. EKG sinus rhythm with no acute changes. Chest x-ray reveals interstitial pulmonary edema. This could be acute pneumonia. CTA of the chest revealsno evidence of pulmonary embolism. Extensive bilateral interstitial groundglass pneumonia. 02/15: Patient states that she is feeling really tired and feels about the same regarding her shortness of breath. She has significant shortness of breath with minimal movement. She is utilizing incentive spirometry. Diarrhea has resolved . Patient has been afebrile, heart rate 61, blood pressure 130/67, pulse ox 91% on 6 L nasal cannula. Blood sugars have been elevated in the 300s up to 406. Levemir 15 units daily added as well as NovoLog 5 units with meals and continue NovoLog scale. Patient is seen and followed by pulmonary medicine. Patient is continued on albuterol inhaler, vitamin supplements, dexamethasone 6 mg IV push twice daily, Lovenox subcu. REVIEW OF SYSTEMS Constitutional: No fever, no chills, no night sweats. No weight change. Reports weakness, reports fatigue no lethargy. No daytime sleepiness. EENT: No headache. No blurred vision or double vision, no loss of vision. No loss of Hearing, no ringing in the ears, no dizziness. No nasal drainage or congestion. No epistaxis. No sore throat. Lungs: Reports shortness of breath, reports cough, no sputum production. No wheezing. Reports dyspnea with exertion. Cardiovascular: No chest pain, no lower extremity edema. No palpitations. No paroxysmal nocturnal dyspnea. No orthopnea. No lightheadedness or dizziness. No syncopal episodes. Abdominal: No abdominal pain. No nausea, vomiting. Reports diarrhea, resolved. No constipation. No bloody or tarry stools. No loss of appetite. Genitourinary: No dysuria, increased frequency, urgency. No urinary retention. Musculoskeletal: Reports myalgias. Reports muscle weakness, no gait dysfunction, no frequent falls. No back pain. No neck pain. Integumentary: No wounds, no lesions. No rash or pruritus. No unusual bruising. No change in hair or nails. Neurologic: No aphasia. No facial droop. No change in mentation. No head injury. No headache. No paralysis. No paresthesia. Psychiatric: No depression. No anxiety. No mood swings. Endocrine: No abnormal blood sugars. No weight change. No excessive sweating or thirst. No cold intolerance. PHYSICAL EXAMINATION Gen: This is a 65-year-old obese female. Patient is resting in bed appears to be comfortable and in no acute distress. She is currently on oxygen at 6 L nasal cannula. HEENT: Head is atraumatic, normocephalic. Pupils equal, round. Sclerae is anicteric. NECK: Supple. No JVD. No lymphadenopathy. No thyromegaly. LUNGS: Few scattered bilateral rhonchi. No intercostal retractions. HEART: Regular rate and rhythm. No murmur. ABDOMEN: Soft. Bowel sounds are present. No masses. No tenderness. EXTREMITIES: No pedal edema. No calf tenderness. NEUROLOGICAL: Patient is awake, alert and oriented x3. Cranial nerves 2 through 12 are grossly intact. ASSESSMENT AND PLAN 1. Acute hypoxic respiratory failure secondary to Covid 19 pneumonia. Patient has been started on dexamethasone 6 mg IV push twice daily, Lovenox 40 mg subcu daily, albuterol inhaler as needed, Vitamin supplements will be added, consult in place with pulmonary medicine. Continue oxygen therapy currently at 6 L nasal cannula. 2. Hypertension. Continue losartan 25 mg daily, verapamil 240 mg at bedtime. 3. Hypothyroidism. Continue levothyroxine 112 g daily. 4. Diabetes mellitus type 2, diet-controlled, uncontrolled with hyperglycemia secondary to steroids. Patient started on Levemir 15 units daily, NovoLog 5 units 3 times daily with meals and continue on NovoLog scale before meals and at bedtime. 5. GI prophylaxis. Protonix. 6. DVT prophylaxis. Lovenox. DISCHARGE PLAN Home. Impression and plan of care have been directed as dictated by the signing physician. Phoebe Rausch nurse practitioner acting as scribe for signing physician. Objective - Vital Signs Vital signs: Vital Signs Temp 97.8 F 02/15/21 08:52 Pulse 61 02/15/21 08:52 Resp 18 02/15/21 08:52 BP 130/67 02/15/21 08:52 Pulse Ox 91 L 02/15/21 08:52 Intake & Output 02/14/21 02/15/21 02/15/21 18:59 06:59 18:59 Weight 112.491 kg Other: # Voids 3 1 - Labs CBC & Chem 7: 02/14/21 07:32 02/14/21 07:32 Labs: Abnormal Lab Results - Last 24 Hours (Table) 02/14/21 02/14/21 02/15/21 Range/Units 16:42 20:32 06:46 POC Glucose (mg/dL) 406 H 343 H 323 H (75-99) mg/dL 02/15/21 Range/Units 11:14 POC Glucose (mg/dL) 355 H (75-99) mg/dL Microbiology - Last 24 Hours (Table) 02/13/21 20:45 Blood Culture - Preliminary Blood No Growth after 24 hours 02/13/21 20:48 Blood Culture - Preliminary Blood No Growth after 24 hours
--- NOTE | 2021-02-15 15:20 | P.PN ---
Subjective Progress Note Date: 02/15/21 Principal diagnosis: Hypoxemic, shortness of breath This 65-year-old white female patient with past medical history of diet- controlled diabetes mellitus, hypertension, hypothyroidism, obesity, previous history of appendectomy and tubal ligation, who presented to the emergency de partment on 02/13/2021 for evaluation of persistent shortness of breath and cough, she reports symptom onset on 01/28/2022, she tested positive on 01/30/2022 for COVID 19. She is not vaccinated against COVID-19. Yesterday she noted that her pulse ox was low between 80 and 85% which was a change from previously being in the mid 90s range. In addition she was having symptoms of shortness of breath, cough, body aches, nausea and generalized weakness. Chest x-ray showed interstitial pulmonary edema. Her lab work showed white blood cell count of 8.2, hemoglobin of 14.5, lymphocyte count is 0.9, d-dimer was 1.2, sodium was 132, potassium is 3.5, chloride is 96, BUN is 13, creatinine 0.57, ferritin is 1831, AST was 53, ALT was 37, LDH was 1066, troponin was less than 0.012, CRP was 15.5, pro-calcitonin level was negative at 0.07, patient has been started Decadron 6 mg twice daily, multivitamins including vitamin C, vitamin D and zinc, she is on prophylactic dose of Lovenox. She is currently requiring 4 L of oxygen her pulse ox is 88-92%. On 02/15/2021 patient seen in follow-up on medical surgical floor. Patient still feels fatigued, short of breath with exertion, but she is able to eat up and walk to the bathroom, cholecystectomy it fairly well, she is currently on 6 L of oxygen pulse ox is 91-92%, she is working on incentive spirometer, she is achieving 1000 mL on the today, signs have been stable, afebrile, hemodynamically stable, no worsening cough no worsening dyspnea, her appetite is fair, her diarrhea has stopped. No abdominal pain. Objective - Vital Signs Vital signs: Vital Signs Temp 98.6 F 02/15/21 14:34 Pulse 66 02/15/21 14:34 Resp 17 02/15/21 14:34 BP 132/74 02/15/21 14:34 Pulse Ox 93 L 02/15/21 14:34 Intake & Output 02/14/21 02/15/21 02/15/21 18:59 06:59 18:59 Weight 112.491 kg Other: # Voids 3 1 - Exam GENERAL EXAM: Alert, very pleasant, 65-year-old white female, on 6 L of oxygen with a pulse ox of 91-92% comfortable in no apparent distress. HEAD: Normocephalic/atraumatic. EYES: Normal reaction of pupils, equal size. Conjunctiva pink, sclera white. NOSE: Clear with pink turbinates. THROAT: No erythema or exudates. NECK: No masses, no JVD, no thyroid enlargement, no adenopathy. CHEST: No chest wall deformity. Symmetrical expansion. LUNGS: Equal air entry with diffuse bilateral crackles CVS: Regular rate and rhythm, normal S1 and S2, no gallops, no murmurs, no rubs ABDOMEN: Soft, nontender. No hepatosplenomegaly, normal bowel sounds, no guarding or rigidity. EXTREMITIES: No clubbing, no edema, no cyanosis, 2+ pulses and upper and lower extremities. MUSCULOSKELETAL: Muscle strength and tone normal. SPINE: No scoliosis or deformity SKIN: No rashes CENTRAL NERVOUS SYSTEM: Alert and oriented -3. No focal deficits, tone is normal in all 4 extremities. PSYCHIATRIC: Alert and oriented -3. Appropriate affect. Intact judgment and insight. - Labs CBC & Chem 7: 02/14/21 07:32 02/14/21 07:32 Labs: Abnormal Lab Results - Last 24 Hours (Table) 02/14/21 02/14/21 02/15/21 Range/Units 16:42 20:32 06:46 POC Glucose (mg/dL) 406 H 343 H 323 H (75-99) mg/dL 02/15/21 Range/Units 11:14 POC Glucose (mg/dL) 355 H (75-99) mg/dL Microbiology - Last 24 Hours (Table) 02/13/21 20:45 Blood Culture - Preliminary Blood No Growth after 24 hours 02/13/21 20:48 Blood Culture - Preliminary Blood No Growth after 24 hours Assessment and Plan Plan: Assessment: #1. Acute hypoxic respiratory failure related to acute COVID-19 related pneumonia, with onset of symptoms on 01/28/2022, tested positive on 01/30/2022, non-vaccinated, admitted to the hospital on 02/13/2021, outside the window for Remdesivir #2. Elevated inflammatory markers related to the above #3. Mild hyponatremia likely hypovolemic, improving #4. Diabetes mellitus type 2, diet controlled, with steroid induced hypoglycemia #5. Morbid obesity with BMI of 38.8 kg/m #6. Hypertension #7. Hypothyroidism Plan: Continue Decadron 6 mg twice daily Continue prophylactic Lovenox 40 mg daily We'll continue with COVID-19 multivitamins Continue IV hydration We'll obtain lower extremity Dopplers, Continue following her clinical course I performed a history & physical examination of the patient and discussed their management with my nurse practitioner, Eleanor Son. I reviewed the nurse practitioner's note and agree with the documented findings and plan of care. Lung sounds are positive for diffuse crackles throughout the lung woodward. The findings and the impression was discussed with the patient. I attest to the documentation by the nurse practitioner. Time with Patient: Less than 30
--- NOTE | 2021-02-15 16:13 | US ---
EXAMINATION TYPE: US venous doppler duplex LE DATE OF EXAM: 02/15/2021 4:05 PM COMPARISON: NONE CLINICAL HISTORY: elevated d-dimer. covid, elevated d-dimer SIDE PERFORMED: Bilateral TECHNIQUE: The lower extremity deep venous system is examined utilizing real time linear array sonog colten with graded compression, doppler sonography and color-flow sonography. VESSELS IMAGED: Common Femoral Vein Deep Femoral Vein Greater Saphenous Vein * Femoral Vein Popliteal Vein Small Saphenous Vein * Proximal Calf Veins (* superficial vessels) There is normal flow, compressibility, vascular waveforms. Right Leg: Negative for DVT Left Leg: Negative for DVT IMPRESSION: No evident deep venous thrombosis within the lower extremities from the level the knee ce ntrally
[2021-02-15 16:18] LABS: Glucose,Whole Blood 328 mg/dL (75-99)
[2021-02-15 20:10] LABS: Glucose,Whole Blood 350 mg/dL (75-99)
[2021-02-15] MEDS: VERAPAMIL SR 240 MG TABLET.ER PO SCH (20:30)
[2021-02-16] MEDS ORDERED: ONDANSETRON 4 MG/2 ML VIAL IVP PRN (02:05)
[2021-02-16] MEDS: LEVOTHYROXINE 112 MCG TAB PO SCH (06:09)
[2021-02-16 07:09] LABS: Glucose,Whole Blood 219 mg/dL (75-99)
[2021-02-16] MEDS: CHOLECALCIFEROL 25 MCG (1000 IU) TABLET PO SCH (08:16)
[2021-02-16] MEDS: ZINC SULFATE 220 MG CAP PO SCH (08:16)
[2021-02-16] MEDS: ASCORBIC ACID 500 MG TAB PO SCH (08:16)
[2021-02-16] MEDS: ENOXAPARIN 40 MG/0.4 ML SYRINGE SQ SCH (08:17)
[2021-02-16] MEDS: INSULIN ASPART (NovoLOG) 100 UNIT/ML VIAL SQ SCH ×7 (08:17→21:16)
[2021-02-16] MEDS: PANTOPRAZOLE 40 MG TABLET PO SCH (08:17)
[2021-02-16] MEDS: INSULIN DETEMIR (LEVEMIR) 100 UNIT/ML SYR SQ SCH (08:17)
[2021-02-16] MEDS: DEXAMETHASONE SOD PHOSPHATE 10 MG/ML 1 ML VIAL IVP SCH (08:17)
[2021-02-16] MEDS: LOSARTAN 25 MG TAB PO SCH (08:17)
[2021-02-16 11:38] LABS: Glucose,Whole Blood 285 mg/dL (75-99)
--- NOTE | 2021-02-16 11:41 | P.PN ---
Subjective Progress Note Date: 02/16/21 HISTORY OF PRESENT ILLNESS This is a 65-year-old female patient of Saulo García NP with medical history of hypertension, hypothyroidism, diabetes mellitus type 2 diet controlled. Patient gives history of being sick about 5 days before [place] with a runny nose continued to worsen and then lost her sense of taste and smell last week for about 5 days. 2 days ago she had a Covid test at [place] drive-through which was positive. She was monitoring her pulse ox at home and had a drop down to 84%. She had contacted her PCP and was told to come in the hospital. Patient denies having any fever. She complains of shortness of breath, chest congestion, diarrhea which is been going on before . She denies any blood in her stools. She states until now she has been exercising every day until yesterday. She has history of hyperlipidemia and has lost 60 pounds to c ontrol cholesterol level. Patient presented to [facility] emergency center. She was found to be afebrile, heart rate 84, blood pressure 131/67, respiratory rate 20, pulse ox 89 % on room air. CBC unremarkable. Sodium 132, potassium 3.5, chloride 96, CO2 26, BUN 13 and creatinine 0.57. Blood sugar 206. D-dimer 1.2. Lactic acid normal. LDH 1066. CRP 15. Pro-calcitonin 0.07. Troponin negative. EKG sinus rhythm with no acute changes. Chest x-ray reveals interstitial pulmonary edema. This could be acute pneumonia. CTA of the chest revealsno evidence of pulmonary embolism. Extensive bilateral interstitial groundglass pneumonia. 02/15: Patient states that she is feeling really tired and feels about the same regarding her shortness of breath. She has significant shortness of breath with minimal movement. She is utilizing incentive spirometry. Diarrhea has resolved. Patient has been afebrile, heart rate 61, blood pressure 130/67, pulse ox 91% on 6 L nasal cannula. Blood sugars have been elevated in the 300s up to 406. Levemir 15 units daily added as well as NovoLog 5 units with meals and continue NovoLog scale. Patient is seen and followed by pulmonary medicine. Patient is continued on albuterol inhaler, vitamin supplements, dexamethasone 6 mg IV push twice daily, Lovenox subcu. 02/16: Patient is sent For Cells She Is Found Resting Comfortably in Bed in No Acute Distress. Patient Does Have Shortness of Breath with Some Movement. However She Has Been Utilizing Her Incentive Spirometer and Ambulatory within the Room. Patient Denies Any Diarrhea at This Time. Patient Remains Afebrile, heart rate 60, respirations 17, blood pressure 132/78, pulse ox 93% on 6 L nasal cannula. We'll continue with albuterol inhaler, vitamin supplements, dexamethas one, and Lovenox. REVIEW OF SYSTEMS Constitutional: No fever, no chills, no night sweats. No weight change. Reports weakness, reports fatigue no lethargy. No daytime sleepiness. EENT: No headache. No blurred vision or double vision, no loss of vision. No loss of Hearing, no ringing in the ears, no dizziness. No nasal drainage or congestion. No epistaxis. No sore throat. Lungs: Reports shortness of breath, reports cough, no sputum production. No wheezing. Reports dyspnea with exertion. Cardiovascular: No chest pain, no lower extremity edema. No palpitations. No paroxysmal nocturnal dyspnea. No orthopnea. No lightheadedness or dizziness. No syncopal episodes. Abdominal: No abdominal pain. No nausea, vomiting. Reports diarrhea, resolved. No constipation. No bloody or tarry stools. No loss of appetite. Genitourinary: No dysuria, increased frequency, urgency. No urinary retention. Musculoskeletal: Reports myalgias. Reports muscle weakness, no gait dysfunction, no frequent falls. No back pain. No neck pain. Integumentary: No wounds, no lesions. No rash or pruritus. No unusual bruising. No change in hair or nails. Neurologic: No aphasia. No facial droop. No change in mentation. No head injury. No headache. No paralysis. No paresthesia. Psychiatric: No depression. No anxiety. No mood swings. Endocrine: No abnormal blood sugars. No weight change. No excessive sweating or thirst. No cold intolerance. PHYSICAL EXAMINATION Gen: This is a 65-year-old obese female. Patient is resting in bed a ppears to be comfortable and in no acute distress. She is currently on oxygen at 6 L nasal cannula. HEENT: Head is atraumatic, normocephalic. Pupils equal, round. Sclerae is anicteric. NECK: Supple. No JVD. No lymphadenopathy. No thyromegaly. LUNGS: Few scattered bilateral rhonchi. No intercostal retractions. HEART: Regular rate and rhythm. No murmur. ABDOMEN: Soft. Bowel sounds are present. No masses. No tenderness. EXTREMITIES: No pedal edema. No calf tenderness. NEUROLOGICAL: Patient is awake, alert and oriented x3. Cranial nerves 2 through 12 are grossly intact. ASSESSMENT AND PLAN 1. Acute hypoxic respiratory failure secondary to Covid 19 pneumonia. Patient has been started on dexamethasone 6 mg IV push twice daily, Lovenox 40 mg subcu daily, albuterol inhaler as needed, Vitamin supplements will be added, consult in place with pulmonary medicine. Continue oxygen therapy currently at 6 L nasal cannula. 2. Hypertension. Continue losartan 25 mg daily, verapamil 240 mg at bedtime. 3. Hypothyroidism. Continue levothyroxine 112 g daily. 4. Diabetes mellitus type 2, diet-controlled, uncontrolled with hyperglycemia secondary to steroids. Patient started on Levemir 15 units daily, NovoLog 5 units 3 times daily with meals and continue on NovoLog scale before meals and at bedtime. 5. GI prophylaxis. Protonix. 6. DVT prophylaxis. Lovenox. DISCHARGE PLAN Home. Impression and plan of care have been directed as dictated by the signing physician. Chelsie De La Garza nurse practitioner acting as scribe for signing physician. Objective - Vital Signs Vital signs: Vital Signs Temp 97.6 F 02/16/21 08:55 Pulse 60 02/16/21 08:55 Resp 17 02/16/21 08:55 BP 132/78 02/16/21 08:55 Pulse Ox 93 L 02/16/21 08:55 Intake & Output 02/15/21 02/16/21 02/16/21 18:59 06:59 18:59 Intake Total 400 Balance 400 Intake: Oral 400 Other: Voiding Method Toilet # Voids 2 3 - Labs CBC & Chem 7: 02/14/21 07:32 02/14/21 07:32 Labs: Abnormal Lab Results - Last 24 Hours (Table) 02/15/21 02/15/21 02/16/21 Range/Units 16:15 20:09 06:55 D-Dimer 1.54 H (<0.60) mg/L FEU POC Glucose (mg/dL) 328 H 350 H (75-99) mg/dL 02/16/21 02/16/21 Range/Units 07:03 11:36 D-Dimer (<0.60) mg/L FEU POC Glucose (mg/dL) 219 H 285 H (75-99) mg/dL Microbiology - Last 24 Hours (Table) 02/13/21 20:45 Blood Culture - Preliminary Blood No Growth after 48 hours 02/13/21 20:48 Blood Culture - Preliminary Blood No Growth after 48 hours
[2021-02-16 12:06] LABS: C Reactive Protein 3.8 mg/dL (0.00-0.80)
[2021-02-16] MEDS: DOCUSATE 100 MG CAP PO SCH (12:43)
--- NOTE | 2021-02-16 15:12 | P.PN ---
Subjective Progress Note Date: 02/16/21 This 65-year-old white female patient with past medical history of diet- controlled diabetes mellitus, hypertension, hypothyroidism, obesity, previous history of appendectomy and tubal ligation, who presented to the emergency department on 02/13/2021 for evaluation of persistent shortness of breath and cough, she reports symptom onset on 01/28/2022, she tested positive on 01/30/2022 for COVID 19. She is not vaccinated against COVID-19. Yesterday she noted that her pulse ox was low between 80 and 85% which was a change from previously being in the mid 90s range. In addition she was having symptoms of shortness of breath, cough, body aches, nausea and generalized weakness. Chest x-ray showed interstitial pulmonary edema. Her lab work showed white blood cell count of 8.2, hemoglobin of 14.5, lymphocyte count is 0.9, d-dimer was 1.2, sodium was 132, potassium is 3.5, chloride is 96, BUN is 13, creatinine 0.57, ferritin is 1831, AST was 53, ALT was 37, LDH was 1066, troponin was less than 0.012, CRP was 15.5, pro-calcitonin level was negative at 0.07, patient has been started Decadron 6 mg twice daily, multivitamins including vitamin C, vitamin D and zinc, she is on prophylactic dose of Lovenox. She is currently requiring 4 L of oxygen her pulse ox is 88-92%. On 02/15/2021 patient seen in follow-up on medical surgical floor. Patient still feels fatigued, short of breath with exertion, but she is able to eat up and walk to the bathroom, cholecystectomy it fairly well, she is currently on 6 L of oxygen pulse ox is 91-92%, she is working on incentive spirometer, she is achieving 1000 mL on the today, signs have been stable, afebrile, hemodynamically stable, no worsening cough no worsening dyspnea, her appetite is fair, her diarrhea has stopped. No abdominal pain. The patient is seen today 02/16/2021 in follow-up on the regular medical floor. She is awake and alert in no acute distress. She denies any worsening shortness of breath, cough or congestion. She is still requiring 6 L high flow nasal cannula to maintain O2 saturations in the low 90s. Computed tomography scan negative for PE. Dopplers negative for DVT. She is continued on Lovenox, Decadron, vitamin supplements. D-dimer 1.54. LDH 405. C-reactive protein 3.80. Objective - Vital Signs Vital signs: Vital Signs Temp 97.8 F 02/16/21 13:51 Pulse 70 02/16/21 13:51 Resp 17 02/16/21 13:51 BP 117/71 02/16/21 13:51 Pulse Ox 90 L 02/16/21 13:51 Intake & Output 02/15/21 02/16/21 02/16/21 18:59 06:59 18:59 Intake Total 400 Balance 400 Intake: Oral 400 Other: Voiding Method Toilet # Voids 2 3 - Exam GENERAL EXAM: Alert, pleasant 65-year-old female patient, on 6 L nasal cannula, fairly comfortable in no apparent distress. HEAD: Normocephalic. EYES: Normal reaction of pupils, equal size. NOSE: Clear with pink turbinates. THROAT: No erythema or exudates. NECK: No masses, no JVD. CHEST: No chest wall deformity. LUNGS: Equal air entry with crackles in the bilateral bases. CVS: S1 and S2 normal with no audible murmur, regular rhythm. ABDOMEN: No hepatosplenomegaly, normal bowel sounds, no guarding or rigidity. SPINE: No scoliosis or deformity SKIN: No rashes CENTRAL NERVOUS SYSTEM: No focal deficits, tone is normal in all 4 extremities. EXTREMITIES: There is no peripheral edema. No clubbing, no cyanosis. Peripheral pulses are intact. - Labs CBC & Chem 7: 02/14/21 07:32 02/14/21 07:32 Labs: Abnormal Lab Results - Last 24 Hours (Table) 02/15/21 02/15/21 02/16/21 Range/Units 16:15 20:09 06:55 D-Dimer 1.54 H (<0.60) mg/L FEU POC Glucose (mg/dL) 328 H 350 H (75-99) mg/dL Lactate Dehydrogenase (120-246) U/L C-Reactive Protein (0.00-0.80) mg/dL 02/16/21 02/16/21 02/16/21 Range/Units 06:55 07:03 11:36 D-Dimer (<0.60) mg/L FEU POC Glucose (mg/dL) 219 H 285 H (75-99) mg/dL Lactate Dehydrogenase 405 H (120-246) U/L C-Reactive Protein 3.80 H (0.00-0.80) mg/dL Microbiology - Last 24 Hours (Table) 02/13/21 20:45 Blood Culture - Preliminary Blood No Growth after 48 hours 02/13/21 20:48 Blood Culture - Preliminary Blood No Growth after 48 hours Assessment and Plan Assessment: 1 Acute hypoxic respiratory failure related to acute COVID-19 related pneumonia, with onset of symptoms on 01/28/2022, tested positive on 01/30/2022, non-vaccinated, admitted to the hospital on 02/13/2021, outside the window for Remdesivir 2 Elevated inflammatory markers related to the above 3 Mild hyponatremia likely hypovolemic, improving 4 Diabetes mellitus type 2, diet controlled, with steroid induced hypoglycemia 5 Morbid obesity with BMI of 38.8 kg/m 6 Hypertension 7 Hypothyroidism Plan: The patient was seen and evaluated Continue on 6 L high flow nasal cannula Titrate the FiO2 as tolerated Continue Lovenox, Decadron, vitamin supplements We will continue to follow I, the cosigning physician, performed a history & physical examination of the patient. Lungs sounds with crackles in the posterior bases Maintaining good O2 saturations in the 90s on 6 L high flow nasal cannula. I discussed the assessment and plan of care with my nurse practitioner, Michelle Mcrae. I attest to the above note as dictated by her.
[2021-02-16 16:35] LABS: Glucose,Whole Blood 293 mg/dL (75-99)
[2021-02-16 20:53] LABS: Glucose,Whole Blood 230 mg/dL (75-99)
[2021-02-16] MEDS: VERAPAMIL SR 240 MG TABLET.ER PO SCH (21:16)
[2021-02-16] MEDS: polyethylene glycoL 3350 17 GM POWD.PACK PO SCH (21:16)
[2021-02-17] MEDS: LEVOTHYROXINE 112 MCG TAB PO SCH (05:58)
[2021-02-17 06:57] LABS: Glucose,Whole Blood 133 mg/dL (75-99)
[2021-02-17] MEDS: INSULIN DETEMIR (LEVEMIR) 100 UNIT/ML SYR SQ SCH (08:16)
[2021-02-17] MEDS: ENOXAPARIN 40 MG/0.4 ML SYRINGE SQ SCH (08:16)
[2021-02-17] MEDS: INSULIN ASPART (NovoLOG) 100 UNIT/ML VIAL SQ SCH ×7 (08:16→21:34)
[2021-02-17] MEDS: ZINC SULFATE 220 MG CAP PO SCH (08:17)
[2021-02-17] MEDS: LOSARTAN 25 MG TAB PO SCH (08:17)
[2021-02-17] MEDS: CHOLECALCIFEROL 25 MCG (1000 IU) TABLET PO SCH (08:17)
[2021-02-17] MEDS: DEXAMETHASONE SOD PHOSPHATE 10 MG/ML 1 ML VIAL IVP SCH (08:17)
[2021-02-17] MEDS: ASCORBIC ACID 500 MG TAB PO SCH (08:17)
[2021-02-17] MEDS: DOCUSATE 100 MG CAP PO SCH (08:17)
[2021-02-17] MEDS: PANTOPRAZOLE 40 MG TABLET PO SCH (08:17)
[2021-02-17 11:22] LABS: Glucose,Whole Blood 191 mg/dL (75-99)
[2021-02-17 12:29] LABS: Appearance,Urine Clear (Clear); Bilirubin,Urine Negative (Negative); Blood,Urine Negative (Negative); Color,Urine Light Yellow; Glucose,Urine (UA) Negative (Negative); Ketones,Urine Negative (Negative); Leukocyte Esterase,Urine Negative (Negative); Nitrite,Urine Negative (Negative); Protein,Urine Negative (Negative); Specific Gravity,Urine 1.005 (1.001-1.035)
[2021-02-17] MEDS: NYSTATIN 100,000 UNIT/ML SUSP 500,000 UNIT/5 ML CUP PO SCH ×4 (12:33→21:35)
--- NOTE | 2021-02-17 13:22 | P.PN ---
Subjective Progress Note Date: 02/17/21 HISTORY OF PRESENT ILLNESS This is a 65-year-old female patient of Saulo García NP with medical history of hypertension, hypothyroidism, diabetes mellitus type 2 diet controlled. Patient gives history of being sick about 5 days before [place] with a runny nose continued to worsen and then lost her sense of taste and smell last week for about 5 days. 2 days ago she had a Covid test at [place] drive-through which was positive. She was monitoring her pulse ox at home and had a drop down to 84%. She had contacted her PCP and was told to come in the hospital. Patient denies having any fever. She complains of shortness of breath, chest congestion, diarrhea which is been going on before . She denies any blood in her stools. She states until now she has been exercising every day until yesterday. She has history of hyperlipidemia and has lost 60 pounds to c ontrol cholesterol level. Patient presented to [facility] emergency center. She was found to be afebrile, heart rate 84, blood pressure 131/67, respiratory rate 20, pulse ox 89 % on room air. CBC unremarkable. Sodium 132, potassium 3.5, chloride 96, CO2 26, BUN 13 and creatinine 0.57. Blood sugar 206. D-dimer 1.2. Lactic acid normal. LDH 1066. CRP 15. Pro-calcitonin 0.07. Troponin negative. EKG sinus rhythm with no acute changes. Chest x-ray reveals interstitial pulmonary edema. This could be acute pneumonia. CTA of the chest revealsno evidence of pulmonary embolism. Extensive bilateral interstitial groundglass pneumonia. 02/15: Patient states that she is feeling really tired and feels about the same regarding her shortness of breath. She has significant shortness of breath with minimal movement. She is utilizing incentive spirometry. Diarrhea has resolved. Patient has been afebrile, heart rate 61, blood pressure 130/67, pulse ox 91% on 6 L nasal cannula. Blood sugars have been elevated in the 300s up to 406. Levemir 15 units daily added as well as NovoLog 5 units with meals and continue NovoLog scale. Patient is seen and followed by pulmonary medicine. Patient is continued on albuterol inhaler, vitamin supplements, dexamethasone 6 mg IV push twice daily, Lovenox subcu. 02/16: Patient is seent 4S Found Resting Comfortably in Bed in No Acute Distress. Patient Does Have Shortness of Breath with Some Movement. However She Has Been Utilizing Her Incentive Spirometer and Ambulatory within the Room. Patient Denies Any Diarrhea at This Time. Patient Remains Afebrile, heart rate 60, respirations 17, blood pressure 132/78, pulse ox 93% on 6 L nasal cannula. We'll continue with albuterol inhaler, vitamin supplements, dexamethasone, and Lovenox. 02/17: Patient is seen on 4 S. She is resting in bed. Patient states that she is more tired compared to yesterday. However she was more active yesterday. He continues to have some shortness of breath with movement however she is able to converse without any shortness of breath. Patient has been utilizing her incentive spirometer is complaining of sores within the month. Patient was star gia on nystatin swish and swallow. REVIEW OF SYSTEMS Constitutional: No fever, no chills, no night sweats. No weight change. Reports weakness, reports fatigue no lethargy. No daytime sleepiness. EENT: No headache. No blurred vision or double vision, no loss of vision. No loss of Hearing, no ringing in the ears, no dizziness. No nasal drainage or congestion. No epistaxis. No sore throat. Lungs: Reports shortness of breath, reports cough, no sputum production. No wheezing. Reports dyspnea with exertion. Cardiovascular: No chest pain, no lower extremity edema. No palpitations. No paroxysmal nocturnal dyspnea. No orthopnea. No lightheadedness or dizziness. No syncopal episodes. Abdominal: No abdominal pain. No nausea, vomiting. Reports diarrhea, resolved. No constipation. No bloody or tarry stools. No loss of appetite. Genitourinary: No dysuria, increased frequency, urgency. No urinary retention. Musculoskeletal: Reports myalgias. Reports muscle weakness, no gait dysfunction, no frequent falls. No back pain. No neck pain. Integumentary: No wounds, no lesions. No rash or pruritus. No unusual bruising. No change in hair or nails. Neurologic: No aphasia. No facial droop. No change in mentation. No head injury. No headache. No paralysis. No paresthesia. Psychiatric: No depression. No anxiety. No mood swings. Endocrine: No abnormal blood sugars. No weight change. No excessive sweating or thirst. No cold intolerance. PHYSICAL EXAMINATION Gen: This is a 65-year-old obese female. Patient is resting in bed appears to be comfortable and in no acute distress. She is currently on oxygen at 6 L nasal cannula. HEENT: Head is atraumatic, normocephalic. Pupils equal, round. Sclerae is anicteric. NECK: Supple. No JVD. No lymphadenopathy. No thyromegaly. LUNGS: Few scattered bilateral rhonchi. No intercostal retractions. HEART: Regular rate and rhythm. No murmur. ABDOMEN: Soft. Bowel sounds are present. No masses. No tenderness. EXTREMITIES: No pedal edema. No calf tenderness. NEUROLOGICAL: Patient is awake, alert and oriented x3. Cranial nerves 2 through 12 are grossly intact. ASSESSMENT AND PLAN 1. Acute hypoxic respiratory failure secondary to Covid 19 pneumonia. Patient has been started on dexamethasone 6 mg IV push twice daily, Lovenox 40 mg subcu daily, albuterol inhaler as needed, Vitamin supplements will be added, consult in place with pulmonary medicine. Continue oxygen therapy currently at 6 L nasal cannula. 2. Hypertension. Continue losartan 25 mg daily, verapamil 240 mg at bedtime. 3. Hypothyroidism. Continue levothyroxine 112 g daily. 4. Diabetes mellitus type 2, diet-controlled, uncontrolled with hyperglycemia secondary to steroids. Patient started on Levemir 15 units daily, NovoLog 5 units 3 times daily with meals and continue on NovoLog scale before meals and at bedtime. 5. Ulcerations mouth related to infection. Nystatin swish and swallow 6. GI prophylaxis. Protonix. 7. DVT prophylaxis. Lovenox. DISCHARGE PLAN Home. Impression and plan of care have been directed as dictated by the signing physician. Chelsie De La Garza nurse practitioner acting as scribe for signing physician. Objective - Vital Signs Vital signs: Vital Signs Temp 97.3 F L 02/17/21 08:46 Pulse 71 02/17/21 08:46 Resp 18 02/17/21 08:46 BP 143/80 02/17/21 08:46 Pulse Ox 95 02/17/21 08:46 Intake & Output 02/16/21 02/17/21 02/17/21 18:59 06:59 18:59 Other: Voiding Method Toilet Toilet Toilet # Voids 4 # Bowel Movements 0 - Labs CBC & Chem 7: 02/14/21 07:32 02/14/21 07:32 Labs: Abnormal Lab Results - Last 24 Hours (Table) 02/16/21 02/16/21 02/17/21 Range/Units 16:32 20:51 06:54 POC Glucose (mg/dL) 293 H 230 H 133 H (75-99) mg/dL 02/17/21 Range/Units 11:19 POC Glucose (mg/dL) 191 H (75-99) mg/dL Microbiology - Last 24 Hours (Table) 02/13/21 20:45 Blood Culture - Preliminary Blood No Growth after 72 hours 02/13/21 20:48 Blood Culture - Preliminary Blood No Growth after 72 hours
--- NOTE | 2021-02-17 14:29 | P.PN ---
Subjective Progress Note Date: 02/17/21 Principal diagnosis: Hypoxemic, shortness of breath This 65-year-old white female patient with past medical history of diet- controlled diabetes mellitus, hypertension, hypothyroidism, obesity, previous history of appendectomy and tubal ligation, who presented to the emergency de partment on 02/13/2021 for evaluation of persistent shortness of breath and cough, she reports symptom onset on 01/28/2022, she tested positive on 01/30/2022 for COVID 19. She is not vaccinated against COVID-19. Yesterday she noted that her pulse ox was low between 80 and 85% which was a change from previously being in the mid 90s range. In addition she was having symptoms of shortness of breath, cough, body aches, nausea and generalized weakness. Chest x-ray showed interstitial pulmonary edema. Her lab work showed white blood cell count of 8.2, hemoglobin of 14.5, lymphocyte count is 0.9, d-dimer was 1.2, sodium was 132, potassium is 3.5, chloride is 96, BUN is 13, creatinine 0.57, ferritin is 1831, AST was 53, ALT was 37, LDH was 1066, troponin was less than 0.012, CRP was 15.5, pro-calcitonin level was negative at 0.07, patient has been started Decadron 6 mg twice daily, multivitamins including vitamin C, vitamin D and zinc, she is on prophylactic dose of Lovenox. She is currently requiring 4 L of oxygen her pulse ox is 88-92%. On 02/15/2021 patient seen in follow-up on medical surgical floor. Patient still feels fatigued, short of breath with exertion, but she is able to eat up and walk to the bathroom, cholecystectomy it fairly well, she is currently on 6 L of oxygen pulse ox is 91-92%, she is working on incentive spirometer, she is achieving 1000 mL on the today, signs have been stable, afebrile, hemodynamically stable, no worsening cough no worsening dyspnea, her appetite is fair, her diarrhea has stopped. No abdominal pain. On 02/17/2021 patient seen in follow-up on medical surgical floor, she is resting in bed, does not appear to be in any acute distress, she is currently on 6 L of oxygen pulse ox is 91-95%, she states she is just feeling more fatigued today. And she is complaining of mouth soreness, she did develop oral thrush and was started on nystatin, in addition she is having some dysuria, and she states her blood pressure was noted to be low yesterday, currently not on any antibiotics, she continues on dexamethasone 6 mg daily, she is on Lovenox 40 mg daily, she is on multi-vitamins. Pulse ox is 96% on 6 L, she's been afebrile. Urinalysis will be sent. She is tolerating oral intake. No nausea vomiting or diarrhea, abdomen is soft. Objective - Vital Signs Vital signs: Vital Signs Temp 97.3 F L 02/17/21 08:46 Pulse 71 02/17/21 08:46 Resp 18 02/17/21 08:46 BP 143/80 02/17/21 08:46 Pulse Ox 95 02/17/21 08:46 Intake & Output 02/16/21 02/17/21 02/17/21 18:59 06:59 18:59 Other: Voiding Method Toilet Toilet Toilet # Voids 4 # Bowel Movements 0 - Exam GENERAL EXAM: Alert, very pleasant, 65-year-old white female, on 6 L of oxygen with a pulse ox of 91-92% comfortable in no apparent distress. HEAD: Normocephalic/atraumatic. EYES: Normal reaction of pupils, equal size. Conjunctiva pink, sclera white. NOSE: Clear with pink turbinates. THROAT: No erythema or exudates. NECK: No masses, no JVD, no thyroid enlargement, no adenopathy. CHEST: No chest wall deformity. Symmetrical expansion. LUNGS: Equal air entry with diffuse bilateral crackles CVS: Regular rate and rhythm, normal S1 and S2, no gallops, no murmurs, no rubs ABDOMEN: Soft, nontender. No hepatosplenomegaly, normal bowel sounds, no guarding or rigidity. EXTREMITIES: No clubbing, no edema, no cyanosis, 2+ pulses and upper and lower extremities. MUSCULOSKELETAL: Muscle strength and tone normal. SPINE: No scoliosis or deformity SKIN: No rashes CENTRAL NERVOUS SYSTEM: Alert and oriented -3. No focal deficits, tone is normal in all 4 extremities. PSYCHIATRIC: Alert and oriented -3. Appropriate affect. Intact judgment and insight. - Labs CBC & Chem 7: 02/14/21 07:32 02/14/21 07:32 Labs: Abnormal Lab Results - Last 24 Hours (Table) 02/16/21 02/16/21 02/17/21 Range/Units 16:32 20:51 06:54 POC Glucose (mg/dL) 293 H 230 H 133 H (75-99) mg/dL 02/17/21 Range/Units 11:19 POC Glucose (mg/dL) 191 H (75-99) mg/dL Microbiology - Last 24 Hours (Table) 02/13/21 20:45 Blood Culture - Preliminary Blood No Growth after 72 hours 02/13/21 20:48 Blood Culture - Preliminary Blood No Growth after 72 hours Assessment and Plan Plan: Assessment: #1. Acute hypoxic respiratory failure related to acute COVID-19 related pne umonia, with onset of symptoms on 01/28/2022, tested positive on 01/30/2022, non-vaccinated, admitted to the hospital on 02/13/2021, outside the window for Remdesivir #2. Elevated inflammatory markers related to the above #3. Mild hyponatremia likely hypovolemic, improving #4. Diabetes mellitus type 2, diet controlled, with steroid induced hypoglycemia #5. Morbid obesity with BMI of 38.8 kg/m #6. Hypertension #7. Hypothyroidism Plan: Continue Decadron 6 mg once daily Continue prophylactic Lovenox 40 mg daily We'll continue with COVID-19 multivitamins Patient is complaining of dysuria, urinalysis has been sent, showing no evidence of infection Lower extremity Dopplers were negative for DVT Vital signs have been stable Continue encouraging deep breathing and coughing, incentive spirometry use, wean FiO2 to keep O2 sat she wishes at or above 90% I performed a history & physical examination of the patient and discussed their management with my nurse practitioner, Eleanor Son. I reviewed the nurse practitioner's note and agree with the documented findings and plan of care. Lung sounds are positive for diffuse crackles throughout the lung woodward. The findings and the impression was discussed with the patient. I attest to the documentation by the nurse practitioner. Time with Patient: Less than 30
[2021-02-17 16:56] LABS: Glucose,Whole Blood 194 mg/dL (75-99)
[2021-02-17 20:13] LABS: Glucose,Whole Blood 243 mg/dL (75-99)
[2021-02-17] MEDS: VERAPAMIL SR 240 MG TABLET.ER PO SCH (21:35)
[2021-02-17] MEDS: polyethylene glycoL 3350 17 GM POWD.PACK PO SCH (21:35)
[2021-02-18] MEDS: LEVOTHYROXINE 112 MCG TAB PO SCH (05:36)
[2021-02-18 07:10] LABS: Glucose,Whole Blood 196 mg/dL (75-99)
[2021-02-18] MEDS: INSULIN DETEMIR (LEVEMIR) 100 UNIT/ML SYR SQ SCH (07:32)
[2021-02-18] MEDS: INSULIN ASPART (NovoLOG) 100 UNIT/ML VIAL SQ SCH ×7 (07:33→20:59)
[2021-02-18] MEDS: ASCORBIC ACID 500 MG TAB PO SCH (07:34)
[2021-02-18] MEDS: ZINC SULFATE 220 MG CAP PO SCH (07:34)
[2021-02-18] MEDS: PANTOPRAZOLE 40 MG TABLET PO SCH (07:34)
[2021-02-18] MEDS: DOCUSATE 100 MG CAP PO SCH (07:34)
[2021-02-18] MEDS: DEXAMETHASONE SOD PHOSPHATE 10 MG/ML 1 ML VIAL IVP SCH (07:34)
[2021-02-18] MEDS: NYSTATIN 100,000 UNIT/ML SUSP 500,000 UNIT/5 ML CUP PO SCH ×4 (07:34→20:59)
[2021-02-18] MEDS: LOSARTAN 25 MG TAB PO SCH (07:34)
[2021-02-18] MEDS: CHOLECALCIFEROL 25 MCG (1000 IU) TABLET PO SCH (07:34)
[2021-02-18] MEDS: ENOXAPARIN 40 MG/0.4 ML SYRINGE SQ SCH (07:35)
[2021-02-18 11:55] LABS: Glucose,Whole Blood 245 mg/dL (75-99)
[2021-02-18 16:59] LABS: Glucose,Whole Blood 241 mg/dL (75-99)
--- NOTE | 2021-02-18 17:09 | P.PN ---
Subjective Progress Note Date: 02/18/21 Principal diagnosis: Hypoxemic, shortness of breath This 65-year-old white female patient with past medical history of diet- controlled diabetes mellitus, hypertension, hypothyroidism, obesity, previous history of appendectomy and tubal ligation, who presented to the emergency de partment on 02/13/2021 for evaluation of persistent shortness of breath and cough, she reports symptom onset on 01/28/2022, she tested positive on 01/30/2022 for COVID 19. She is not vaccinated against COVID-19. Yesterday she noted that her pulse ox was low between 80 and 85% which was a change from previously being in the mid 90s range. In addition she was having symptoms of shortness of breath, cough, body aches, nausea and generalized weakness. Chest x-ray showed interstitial pulmonary edema. Her lab work showed white blood cell count of 8.2, hemoglobin of 14.5, lymphocyte count is 0.9, d-dimer was 1.2, sodium was 132, potassium is 3.5, chloride is 96, BUN is 13, creatinine 0.57, ferritin is 1831, AST was 53, ALT was 37, LDH was 1066, troponin was less than 0.012, CRP was 15.5, pro-calcitonin level was negative at 0.07, patient has been started Decadron 6 mg twice daily, multivitamins including vitamin C, vitamin D and zinc, she is on prophylactic dose of Lovenox. She is currently requiring 4 L of oxygen her pulse ox is 88-92%. On 02/15/2021 patient seen in follow-up on medical surgical floor. Patient still feels fatigued, short of breath with exertion, but she is able to eat up and walk to the bathroom, cholecystectomy it fairly well, she is currently on 6 L of oxygen pulse ox is 91-92%, she is working on incentive spirometer, she is achieving 1000 mL on the today, signs have been stable, afebrile, hemodynamically stable, no worsening cough no worsening dyspnea, her appetite is fair, her diarrhea has stopped. No abdominal pain. On 02/17/2021 patient seen in follow-up on medical surgical floor, she is resting in bed, does not appear to be in any acute distress, she is currently on 6 L of oxygen pulse ox is 91-95%, she states she is just feeling more fatigued today. And she is complaining of mouth soreness, she did develop oral thrush and was started on nystatin, in addition she is having some dysuria, and she states her blood pressure was noted to be low yesterday, currently not on any antibiotics, she continues on dexamethasone 6 mg daily, she is on Lovenox 40 mg daily, she is on multi-vitamins. Pulse ox is 96% on 6 L, she's been afebrile. Urinalysis will be sent. She is tolerating oral intake. No nausea vomiting or diarrhea, abdomen is soft. On 02/18/2021 patient seen in follow-up on medical surgical floor, she is resting comfortably in bed, she remains on 6 L of oxygen, her pulse ox is currently at 91%, she has exertional dyspnea, but appears to be in no acute distress, overall breathing seems to be stable without worsening dyspnea, or cough, no complete chest discomfort, she's been afebrile, vital signs have been stable, no fever or chills, he continues on Decadron 6 mg daily, she remains on prophylactic dose of Lovenox, she is on vitamins of vitamin C, vitamin D, and zinc. Lower extremity Dopplers were negative for DVT. Yesterday patient was complaining of some dysuria, urinalysis was sent and was negative for any infect ion, her inflammatory markers were improving a couple days ago, no new labs today. No acute events overnight, appetite is fair, no nausea vomiting or diarrhea. Objective - Vital Signs Vital signs: Vital Signs Temp 98.2 F 02/18/21 14:56 Pulse 77 02/18/21 14:56 Resp 21 02/18/21 14:56 BP 113/62 02/18/21 14:56 Pulse Ox 91 L 02/18/21 15:50 Intake & Output 02/17/21 02/18/21 02/18/21 18:59 06:59 18:59 Intake Total 1160 Balance 1160 Intake: Oral 1160 Other: Voiding Method Toilet Toilet Toilet # Voids 4 2 # Bowel Movements 0 - Exam GENERAL EXAM: Alert, very pleasant, 65-year-old white female, on 6 L of oxygen with a pulse ox of 91-92% comfortable in no apparent distress. HEAD: Normocephalic/atraumatic. EYES: Normal reaction of pupils, equal size. Conjunctiva pink, sclera white. NOSE: Clear with pink turbinates. THROAT: No erythema or exudates. NECK: No masses, no JVD, no thyroid enlargement, no adenopathy. CHEST: No chest wall deformity. Symmetrical expansion. LUNGS: Equal air entry with diffuse bilateral crackles CVS: Regular rate and rhythm, normal S1 and S2, no gallops, no murmurs, no rubs ABDOMEN: Soft, nontender. No hepatosplenomegaly, normal bowel sounds, no guarding or rigidity. EXTREMITIES: No clubbing, no edema, no cyanosis, 2+ pulses and upper and lower extremities. MUSCULOSKELETAL: Muscle strength and tone normal. SPINE: No scoliosis or deformity SKIN: No rashes CENTRAL NERVOUS SYSTEM: Alert and oriented -3. No focal deficits, tone is normal in all 4 extremities. PSYCHIATRIC: Alert and oriented -3. Appropriate affect. Intact judgment and insight. - Labs CBC & Chem 7: 02/14/21 07:32 02/14/21 07:32 Labs: Abnormal Lab Results - Last 24 Hours (Table) 02/17/21 02/18/21 02/18/21 Range/Units 20:11 07:08 11:54 POC Glucose (mg/dL) 243 H 196 H 245 H (75-99) mg/dL 02/18/21 Range/Units 16:58 POC Glucose (mg/dL) 241 H (75-99) mg/dL Microbiology - Last 24 Hours (Table) 02/13/21 20:45 Blood Culture - Preliminary Blood No Growth after 96 hours 02/13/21 20:48 Blood Culture - Preliminary Blood No Growth after 96 hours Assessment and Plan Plan: Assessment: #1. Acute hypoxic respiratory failure related to acute COVID-19 related pneumonia, with onset of symptoms on 01/28/2022, tested positive on 01/30/2022, non-vaccinated, admitted to the hospital on 02/13/2021, outside the window for Remdesivir #2. Elevated inflammatory markers related to the above, improving #3. Mild hyponatremia likely hypovolemic, improving #4. Diabetes mellitus type 2, diet controlled, with steroid induced hypoglycemia #5. Morbid obesity with BMI of 38.8 kg/m #6. Hypertension #7. Hypothyroidism Plan: No worsening dyspnea, no worsening cough Oxygen saturation levels continue to be stable Continue Decadron 6 mg once daily Continue prophylactic Lovenox 40 mg daily We'll continue with COVID-19 multivitamins Lower extremity Dopplers were completed and were negative for DVT Encourage deep breathing and coughing, Encouraged patient to sit up in the chair Increase activity as tolerated Follow-up chest x-ray, d-dimer and inflammatory markers for tomorrow I performed a history & physical examination of the patient and discussed their management with my nurse practitioner, Eleanor Son. I reviewed the nurse practitioner's note and agree with the documented findings and plan of care. Lung sounds are positive for diffuse crackles throughout the lung woodward. The findings and the impression was discussed with the patient. I attest to the documentation by the nurse practitioner. Time with Patient: Less than 30
--- NOTE | 2021-02-18 18:26 | P.PN ---
Subjective Progress Note Date: 02/18/21 HISTORY OF PRESENT ILLNESS This is a 65-year-old female patient of Saulo García NP with medical history of hypertension, hypothyroidism, diabetes mellitus type 2 diet controlled. Patient gives history of being sick about 5 days before [place] with a runny nose continued to worsen and then lost her sense of taste and smell last week for about 5 days. 2 days ago she had a Covid test at [place] drive-through which was positive. She was monitoring her pulse ox at home and had a drop down to 84%. She had contacted her PCP and was told to come in the hospital. Patient denies having any fever. She complains of shortness of breath, chest congestion, diarrhea which is been going on before . She denies any blood in her stools. She states until now she has been exercising every day until yesterday. She has history of hyperlipidemia and has lost 60 pounds to control cholesterol level. Patient presented to [facility] emergency center. She was found to be afebrile, heart rate 84, blood pressure 131/67, respiratory rate 20, pulse ox 89 % on room air. CBC unremarkable. Sodium 132, potassium 3.5, chloride 96, CO2 26, BUN 13 and creatinine 0.57. Blood sugar 206. D-dimer 1.2. Lactic acid normal. LDH 1066. CRP 15. Pro-calcitonin 0.07. Troponin negative. EKG sinus rhythm with no acute changes. Chest x-ray reveals interstitial pulmonary edema. This could be acute pneumonia. CTA of the chest revealsno evidence of pulmonary embolism. Extensive bilateral interstitial groundglass pneumonia. 02/15: Patient states that she is feeling really tired and feels about the same regarding her shortness of breath. She has significant shortness of breath with minimal movement. She is utilizing incentive spirometry. Diarrhea has resolved . Patient has been afebrile, heart rate 61, blood pressure 130/67, pulse ox 91% on 6 L nasal cannula. Blood sugars have been elevated in the 300s up to 406. Levemir 15 units daily added as well as NovoLog 5 units with meals and continue NovoLog scale. Patient is seen and followed by pulmonary medicine. Patient is continued on albuterol inhaler, vitamin supplements, dexamethasone 6 mg IV push twice daily, Lovenox subcu. 02/16: Patient is seent 4S Found Resting Comfortably in Bed in No Acute Distress. Patient Does Have Shortness of Breath with Some Movement. However She Has Been Utilizing Her Incentive Spirometer and Ambulatory within the Room. Patient Denies Any Diarrhea at This Time. Patient Remains Afebrile, heart rate 60, respirations 17, blood pressure 132/78, pulse ox 93% on 6 L nasal cannula. We'll continue with albuterol inhaler, vitamin supplements, dexamethasone, and Lovenox. 02/17: Patient is seen on 4 S. She is resting in bed. Patient states that she is more tired compared to yesterday. However she was more active yesterday. He continues to have some shortness of breath with movement however she is able to converse without any shortness of breath. Patient has been utilizing her incentive spirometer is complaining of sores within the month. Patient was sta rted on nystatin swish and swallow. 02/18: Patient was seen resting comfortably, no shortness of breath or chest pain, however she does have daily symptoms of dyspnea, she is currently at 6 L nasal cannula, with pulse oximetry 95%. However when we had ambulated the patient today, her pulse oximetry dropped down to 80%, she is given nystatin swish and swallow, her blood sugars are elevated, in the 200 today, we'll going to increase the NovoLog to 7 units pre-meal, keep the long-acting the same. She is on dexamethasone, not on baricitinib or remdesivir continue to monitor for cytokine markers REVIEW OF SYSTEMS Constitutional: No fever, no chills, no night sweats. No weight change. Reports weakness, reports fatigue no lethargy. No daytime sleepiness. EENT: No headache. No blurred vision or double vision, no loss of vision. No loss of Hearing, no ringing in the ears, no dizziness. No nasal drainage or congestion. No epistaxis. No sore throat. Lungs: Reports shortness of breath, reports cough, no sputum production. No wheezing. Reports dyspnea with exertion. Cardiovascular: No chest pain, no lower extremity edema. No palpitations. No paroxysmal nocturnal dyspnea. No orthopnea. No lightheadedness or dizziness. No syncopal episodes. Abdominal: No abdominal pain. No nausea, vomiting. Reports diarrhea, resolved. No constipation. No bloody or tarry stools. No loss of appetite. Genitourinary: No dysuria, increased frequency, urgency. No urinary retention. Musculoskeletal: Reports myalgias. Reports muscle weakness, no gait dysfunction , no frequent falls. No back pain. No neck pain. Integumentary: No wounds, no lesions. No rash or pruritus. No unusual bruising. No change in hair or nails. Neurologic: No aphasia. No facial droop. No change in mentation. No head injury. No headache. No paralysis. No paresthesia. Psychiatric: No depression. No anxiety. No mood swings. Endocrine: No abnormal blood sugars. No weight change. No excessive sweating or thirst. No cold intolerance. PHYSICAL EXAMINATION Gen: This is a 65-year-old obese female. Patient is resting in bed appears to be comfortable and in no acute distress. She is currently on oxygen at 6 L nasal cannula. HEENT: Head is atraumatic, normocephalic. Pupils equal, round. Sclerae is anicteric. NECK: Supple. No JVD. No lymphadenopathy. No thyromegaly. LUNGS: Few scattered bilateral rhonchi. No intercostal retractions. HEART: Regular rate and rhythm. No murmur. ABDOMEN: Soft. Bowel sounds are present. No masses. No tenderness. EXTREMITIES: No pedal edema. No calf tenderness. NEUROLOGICAL: Patient is awake, alert and oriented x3. Cranial nerves 2 through 12 are grossly intact. ASSESSMENT AND PLAN 1. Acute hypoxic respiratory failure secondary to Covid 19 pneumonia. Patient has been started on dexamethasone 6 mg IV push twice daily, Lovenox 40 mg subcu daily, albuterol inhaler as needed, Vitamin supplements will be added, consult in place with pulmonary medicine. Continue oxygen therapy currently at 6 L nasal cannula. 2. Hypertension. Continue losartan 25 mg daily, verapamil 240 mg at bedtime. 3. Hypothyroidism. Continue levothyroxine 112 g daily. 4. Diabetes mellitus type 2, diet-controlled, uncontrolled with hyperglycemia secondary to steroids. Patient started on Levemir 15 units daily, NovoLog 5 units 3 times daily with meals and continue on NovoLog scale before meals and at bedtime. 5. Ulcerations mouth related to infection. Nystatin swish and swallow 6. GI prophylaxis. Protonix. 7. DVT prophylaxis. Lovenox. DISCHARGE PLAN Home. Current Medications Acetaminophen (Acetaminophen Tab 325 Mg Tab) 650 mg PO Q4HR PRN PRN Reason: Fever>101 Albuterol Sulfate (Albuterol Hfa Inhaler) 2 puff INHALATION RT-Q6H PRN PRN Reason: Shortness Of Breath Or Wheezing Ascorbic Acid (Ascorbic Acid 500 Mg Tab) 1,000 mg PO DAILY [facility] Last Admin: 02/18/21 07:34 Dose: 1,000 mg Documented by: Cholecalciferol (Cholecalciferol 25 Mcg (1000 Iu) Tablet) 50 mcg PO DAILY [facility] Last Admin: 02/18/21 07:34 Dose: 50 mcg Documented by: Dexamethasone Sodium Phosphate (Dexamethasone Sod Phosphate 10 Mg/Ml 1 Ml Vial) 6 mg IVP DAILY [facility] Last Admin: 02/18/21 07:34 Dose: 6 mg Documented by: Docusate Sodium (Docusate 100 Mg Cap) 100 mg PO DAILY [facility] Last Admin: 02/18/21 07:34 Dose: 100 mg Documented by: Enoxaparin Sodium (Enoxaparin 40 Mg/0.4 Ml Syringe) 40 mg SQ DAILY [facility] Last Admin: 02/18/21 07:35 Dose: 40 mg Documented by: Insulin Aspart (Insulin Aspart (Novolog) 100 Unit/Ml Vial) 0 unit SQ ACHS [facility]; Protocol Last Admin: 02/18/21 17:52 Dose: 5 unit Documented by: Insulin Aspart (Insulin Aspart (Novolog) 100 Unit/Ml Vial) 7 unit SQ AC-TID [facility] Last Admin: 02/18/21 17:52 Dose: 7 unit Documented by: Insulin Detemir (Insulin Detemir (Levemir) 100 Unit/Ml Syr) 15 unit SQ DAILY@0700 [facility] Last Admin: 02/18/21 07:32 Dose: 15 unit Documented by: Levothyroxine Sodium (Levothyroxine 112 Mcg Tab) 112 mcg PO DAILY@0630 [facility] Last Admin: 02/18/21 05:36 Dose: 112 mcg Documented by: Loperamide HCl (Loperamide 2 Mg Cap) 2 mg PO QID PRN PRN Reason: Diarrhea Losartan Potassium (Losartan 25 Mg Tab) 25 mg PO DAILY [facility] Last Admin: 02/18/21 07:34 Dose: 25 mg Documented by: Naloxone HCl (Naloxone 0.4 Mg/Ml 1 Ml Vial) 0.2 mg IV Q2M PRN PRN Reason: Opioid Reversal Nystatin (Nystatin 100,000 Unit/Ml Susp 500,000 Unit/5 Ml Cup) 500,000 unit PO QID [facility] Last Admin: 02/18/21 17:53 Dose: 500,000 unit Documented by: Ondansetron HCl (Ondansetron 4 Mg/2 Ml Vial) 4 mg IVP Q6HR PRN PRN Reason: Nausea And Vomiting Last Admin: 02/16/21 02:11 Dose: 4 mg Documented by: Pantoprazole Sodium (Pantoprazole 40 Mg Tablet) 40 mg PO AC-BRKFST [facility] Last Admin: 02/18/21 07:34 Dose: 40 mg Documented by: Polyethylene Glycol (Polyethylene Glycol 3350 17 Gm Powd.Pack) 17 gm PO [facility] Last Admin: 02/17/21 21:35 Dose: 17 gm Documented by: Verapamil HCl (Verapamil Sr 240 Mg Tablet.Er) 240 mg PO [facility] Last Admin: 02/17/21 21:35 Dose: 240 mg Documented by: Zinc Sulfate (Zinc Sulfate 220 Mg Cap) 220 mg PO DAILY [facility] Last Admin: 02/18/21 07:34 Dose: 220 mg Documented by: Laboratory Results - Last 24 Hours 02/17/21 02/18/21 02/18/21 20:11 07:08 11:54 POC Glucose (mg/dL) 243 H 196 H 245 H POC Glu [employer] Engineer ID Marly Dumont Emily Closs, Emily 02/18/21 16:58 POC Glucose (mg/dL) 241 H POC Glu [employer] Design Engineer ID Sara Bach Vital Signs Temp 98.2 F 02/18/21 14:56 Pulse 77 02/18/21 14:56 Resp 02/18/21 14:56 BP 113/62 02/18/21 14:56 Pulse Ox 91 L 02/18/21 15:50 Intake & Output 02/17/21 02/18/21 02/18/21 18:59 06:59 18:59 Intake Total 1160 Balance 1160 Intake: Oral 1160 Other: Voiding Method Toilet Toilet Toilet # Voids 4 2 # Bowel Movements 0 Objective - Vital Signs Vital signs: Vital Signs Temp 98.2 F 02/18/21 14:56 Pulse 77 02/18/21 14:56 Resp 02/18/21 14:56 BP 113/62 02/18/21 14:56 Pulse Ox 91 L 02/18/21 15:50 Intake & Output 02/17/21 02/18/21 02/18/21 18:59 06:59 18:59 Intake Total 1160 Balance 1160 Intake: Oral 1160 Other: Voiding Method Toilet Toilet Toilet # Voids 4 2 # Bowel Movements 0 - Labs CBC & Chem 7: 02/14/21 07:32 02/14/21 07:32 Labs: Abnormal Lab Results - Last 24 Hours (Table) 02/17/21 02/18/21 02/18/21 Range/Units 20:11 07:08 11:54 POC Glucose (mg/dL) 243 H 196 H 245 H (75-99) mg/dL 02/18/21 Range/Units 16:58 POC Glucose (mg/dL) 241 H (75-99) mg/dL Microbiology - Last 24 Hours (Table) 02/13/21 20:45 Blood Culture - Preliminary Blood No Growth after 96 hours 02/13/21 20:48 Blood Culture - Preliminary Blood No Growth after 96 hours
[2021-02-18 20:42] LABS: Glucose,Whole Blood 220 mg/dL (75-99)
[2021-02-18] MEDS: polyethylene glycoL 3350 17 GM POWD.PACK PO SCH (20:58)
[2021-02-18] MEDS: VERAPAMIL SR 240 MG TABLET.ER PO SCH (20:59)
[2021-02-19] MEDS: LEVOTHYROXINE 112 MCG TAB PO SCH (05:53)
[2021-02-19 06:57] LABS: Glucose,Whole Blood 152 mg/dL (75-99)
[2021-02-19] MEDS: CHOLECALCIFEROL 25 MCG (1000 IU) TABLET PO SCH (07:31)
[2021-02-19] MEDS: ASCORBIC ACID 500 MG TAB PO SCH (07:31)
[2021-02-19] MEDS: PANTOPRAZOLE 40 MG TABLET PO SCH (07:31)
[2021-02-19] MEDS: ENOXAPARIN 40 MG/0.4 ML SYRINGE SQ SCH (07:31)
[2021-02-19] MEDS: DEXAMETHASONE SOD PHOSPHATE 10 MG/ML 1 ML VIAL IVP SCH (07:31)
[2021-02-19] MEDS: DOCUSATE 100 MG CAP PO SCH (07:31)
[2021-02-19] MEDS: INSULIN ASPART (NovoLOG) 100 UNIT/ML VIAL SQ SCH ×7 (07:32→19:59)
[2021-02-19] MEDS: NYSTATIN 100,000 UNIT/ML SUSP 500,000 UNIT/5 ML CUP PO SCH ×4 (07:32→19:59)
[2021-02-19] MEDS: ZINC SULFATE 220 MG CAP PO SCH (07:32)
[2021-02-19] MEDS: INSULIN DETEMIR (LEVEMIR) 100 UNIT/ML SYR SQ SCH (07:32)
[2021-02-19] MEDS: LOSARTAN 25 MG TAB PO SCH (07:34)
--- NOTE | 2021-02-19 09:29 | XR ---
EXAMINATION TYPE: XR chest 1V portable DATE OF EXAM: 02/19/2021 COMPARISON: 02/13/2021 HISTORY: Cough TECHNIQUE: Single frontal view of the chest is obtained. FINDINGS: Diffuse bilateral infiltrate mildly progressed. Heart size prominent. Ectasia of the aorta . No pleural effusion or pneumothorax. Arthropathy of the shoulders. Degenerative change of the spine with curvature. IMPRESSION: Diffuse bilateral infiltrates are mildly progressed.
[2021-02-19 11:52] LABS: Glucose,Whole Blood 250 mg/dL (75-99)
[2021-02-19] MEDS: metOLazone 2.5 MG TAB PO SCH (12:41)
[2021-02-19 12:49] LABS: C Reactive Protein 7.1 mg/dL (0.00-0.80)
[2021-02-19 13:07] VITALS: BMI 38.8
--- NOTE | 2021-02-19 15:29 | P.PN ---
Subjective Progress Note Date: 02/19/21 Principal diagnosis: Hypoxemic, shortness of breath This 65-year-old white female patient with past medical history of diet- controlled diabetes mellitus, hypertension, hypothyroidism, obesity, previous history of appendectomy and tubal ligation, who presented to the emergency de partment on 02/13/2021 for evaluation of persistent shortness of breath and cough, she reports symptom onset on 01/28/2022, she tested positive on 01/30/2022 for COVID 19. She is not vaccinated against COVID-19. Yesterday she noted that her pulse ox was low between 80 and 85% which was a change from previously being in the mid 90s range. In addition she was having symptoms of shortness of breath, cough, body aches, nausea and generalized weakness. Chest x-ray showed interstitial pulmonary edema. Her lab work showed white blood cell count of 8.2, hemoglobin of 14.5, lymphocyte count is 0.9, d-dimer was 1.2, sodium was 132, potassium is 3.5, chloride is 96, BUN is 13, creatinine 0.57, ferritin is 1831, AST was 53, ALT was 37, LDH was 1066, troponin was less than 0.012, CRP was 15.5, pro-calcitonin level was negative at 0.07, patient has been started Decadron 6 mg twice daily, multivitamins including vitamin C, vitamin D and zinc, she is on prophylactic dose of Lovenox. She is currently requiring 4 L of oxygen her pulse ox is 88-92%. On 02/15/2021 patient seen in follow-up on medical surgical floor. Patient still feels fatigued, short of breath with exertion, but she is able to eat up and walk to the bathroom, cholecystectomy it fairly well, she is currently on 6 L of oxygen pulse ox is 91-92%, she is working on incentive spirometer, she is achieving 1000 mL on the today, signs have been stable, afebrile, hemodynamically stable, no worsening cough no worsening dyspnea, her appetite is fair, her diarrhea has stopped. No abdominal pain. On 02/17/2021 patient seen in follow-up on medical surgical floor, she is resting in bed, does not appear to be in any acute distress, she is currently on 6 L of oxygen pulse ox is 91-95%, she states she is just feeling more fatigued today. And she is complaining of mouth soreness, she did develop oral thrush and was started on nystatin, in addition she is having some dysuria, and she states her blood pressure was noted to be low yesterday, currently not on any antibiotics, she continues on dexamethasone 6 mg daily, she is on Lovenox 40 mg daily, she is on multi-vitamins. Pulse ox is 96% on 6 L, she's been afebrile. Urinalysis will be sent. She is tolerating oral intake. No nausea vomiting or diarrhea, abdomen is soft. On 02/18/2021 patient seen in follow-up on medical surgical floor, she is resting comfortably in bed, she remains on 6 L of oxygen, her pulse ox is currently at 91%, she has exertional dyspnea, but appears to be in no acute distress, overall breathing seems to be stable without worsening dyspnea, or cough, no complete chest discomfort, she's been afebrile, vital signs have been stable, no fever or chills, he continues on Decadron 6 mg daily, she remains on prophylactic dose of Lovenox, she is on vitamins of vitamin C, vitamin D, and zinc. Lower extremity Dopplers were negative for DVT. Yesterday patient was complaining of some dysuria, urinalysis was sent and was negative for any infect ion, her inflammatory markers were improving a couple days ago, no new labs today. No acute events overnight, appetite is fair, no nausea vomiting or diarrhea. On 02/19/2021 patient seen in follow-up on medical surgical floor. She is awake and alert, in no acute distress, on 6 L of oxygen her pulse ox is 95%, no worsening dyspnea, occasional cough, no complete the chest discomfort. She's had no acute events overnight, she has been afebrile. She was subsequently dropped down to 3 L FiO2, and her pulse ox is 90%, continues to breathe comfortably. Today's labs have been reviewed, d-dimer is up to 7.44, inflammatory markers are improving since admission. Fairly stable compared to yesterday's levels. Objective - Vital Signs Vital signs: Vital Signs Temp 97.7 F 02/19/21 14:00 Pulse 90 02/19/21 14:00 Resp 19 02/19/21 14:00 BP 114/71 02/19/21 14:00 Pulse Ox 90 L 02/19/21 14:00 Intake & Output 02/18/21 02/19/21 02/19/21 18:59 06:59 18:59 Intake Total 1750 1000 Balance 1750 1000 Weight 112.491 kg Intake: Oral 1750 1000 Other: Voiding Method Toilet Toilet # Voids 2 3 # Bowel Movements 1 - Exam GENERAL EXAM: Alert, very pleasant, 65-year-old white female, on 3 L of oxygen with a pulse ox of 91-92% comfortable in no apparent distress. HEAD: Normocephalic/atraumatic. EYES: Normal reaction of pupils, equal size. Conjunctiva pink, sclera white. NOSE: Clear with pink turbinates. THROAT: No erythema or exudates. NECK: No masses, no JVD, no thyroid enlargement, no adenopathy. CHEST: No chest wall deformity. Symmetrical expansion. LUNGS: Equal air entry with diffuse bilateral crackles CVS: Regular rate and rhythm, normal S1 and S2, no gallops, no murmurs, no rubs ABDOMEN: Soft, nontender. No hepatosplenomegaly, normal bowel sounds, no guarding or rigidity. EXTREMITIES: No clubbing, no edema, no cyanosis, 2+ pulses and upper and lower extremities. MUSCULOSKELETAL: Muscle strength and tone normal. SPINE: No scoliosis or deformity SKIN: No rashes CENTRAL NERVOUS SYSTEM: Alert and oriented -3. No focal deficits, tone is normal in all 4 extremities. PSYCHIATRIC: Alert and oriented -3. Appropriate affect. Intact judgment and insight. - Labs CBC & Chem 7: 02/14/21 07:32 02/14/21 07:32 Labs: Abnormal Lab Results - Last 24 Hours (Table) 02/14/21 02/18/21 02/18/21 Range/Units 07:32 16:58 20:41 D-Dimer (<0.60) mg/L FEU POC Glucose (mg/dL) 241 H 220 H (75-99) mg/dL Hemoglobin A1c 9.2 H (4.0-6.0) % Lactate Dehydrogenase (120-246) U/L C-Reactive Protein (0.00-0.80) mg/dL 02/19/21 02/19/21 02/19/21 Range/Units 06:10 06:10 06:54 D-Dimer 7.44 H (<0.60) mg/L FEU POC Glucose (mg/dL) 152 H (75-99) mg/dL Hemoglobin A1c (4.0-6.0) % Lactate Dehydrogenase 427 H (120-246) U/L C-Reactive Protein 7.10 H (0.00-0.80) mg/dL 02/19/21 Range/Units 11:51 D-Dimer (<0.60) mg/L FEU POC Glucose (mg/dL) 250 H (75-99) mg/dL Hemoglobin A1c (4.0-6.0) % Lactate Dehydrogenase (120-246) U/L C-Reactive Protein (0.00-0.80) mg/dL Microbiology - Last 24 Hours (Table) 02/13/21 20:45 Blood Culture - Preliminary Blood No Growth after 120 hours 02/13/21 20:48 Blood Culture - Preliminary Blood No Growth after 120 hours Assessment and Plan Plan: Assessment: #1. Acute hypoxic respiratory failure related to acute COVID-19 related pneumonia, with onset of symptoms on 01/28/2022, tested positive on 01/30/2022, non-vaccinated, admitted to the hospital on 02/13/2021, outside the window for Remdesivir #2. Elevated inflammatory markers related to the above, improving #3. Mild hyponatremia likely hypovolemic, improving #4. Diabetes mellitus type 2, diet controlled, with steroid induced hypoglycemia #5. Morbid obesity with BMI of 38.8 kg/m #6. Hypertension #7. Hypothyroidism #8. Elevated d-dimer, with no CTA evidence of pulmonary embolism, lower extremity Dopplers were completed and were negative for DVT Plan: Fio2 currently down to 3 L No worsening dyspnea, breathing comfortably Increase activity as tolerated Continue current dose Decadron, and Lovenox Today's d-dimer and inflammatory markers were noted No worsening dyspnea, no worsening cough Encourage deep breathing and coughing, Encouraged patient to sit up in the chair Increase activity as tolerated If remains stable on less than 5 L supplemental oxygen may consider discharge home in next 24-48 hours I performed a history & physical examination of the patient and discussed their management with my nurse practitioner, Eleanor Son. I reviewed the nurse practitioner's note and agree with the documented findings and plan of care. Lung sounds are positive for diffuse crackles throughout the lung [place]. The findings and the impression was discussed with the patient. I attest to the documentation by the nurse practitioner. Time with Patient: Less than 30
--- NOTE | 2021-02-19 16:04 | P.PN ---
Subjective Progress Note Date: 02/19/21 HISTORY OF PRESENT ILLNESS This is a 65-year-old female patient of Saulo García NP with medical history of hypertension, hypothyroidism, diabetes mellitus type 2 diet controlled. Patient gives history of being sick about 5 days before [place] with a runny nose continued to worsen and then lost her sense of taste and smell last week for about 5 days. 2 days ago she had a Covid test at [place] drive-through which was positive. She was monitoring her pulse ox at home and had a drop down to 84%. She had contacted her PCP and was told to come in the hospital. Patient denies having any fever. She complains of shortness of breath, chest congestion, diarrhea which is been going on before . She denies any blood in her stools. She states until now she has been exercising every day until yesterday. She has history of hyperlipidemia and has lost 60 pounds to control cholesterol level. Patient presented to [facility] emergency center. She was found to be afebrile, heart rate 84, blood pressure 131/67, respiratory rate 20, pulse ox 89 % on room air. CBC unremarkable. Sodium 132, potassium 3.5, chloride 96, CO2 26, BUN 13 and creatinine 0.57. Blood sugar 206. D-dimer 1.2. Lactic acid normal. LDH 1066. CRP 15. Pro-calcitonin 0.07. Troponin negative. EKG sinus rhythm with no acute changes. Chest x-ray reveals interstitial pulmonary edema. This could be acute pneumonia. CTA of the chest revealsno evidence of pulmonary embolism. Extensive bilateral interstitial groundglass pneumonia. 02/15: Patient states that she is feeling really tired and feels about the same regarding her shortness of breath. She has significant shortness of breath with minimal movement. She is utilizing incentive spirometry. Diarrhea has resolved . Patient has been afebrile, heart rate 61, blood pressure 130/67, pulse ox 91% on 6 L nasal cannula. Blood sugars have been elevated in the 300s up to 406. Levemir 15 units daily added as well as NovoLog 5 units with meals and continue NovoLog scale. Patient is seen and followed by pulmonary medicine. Patient is continued on albuterol inhaler, vitamin supplements, dexamethasone 6 mg IV push twice daily, Lovenox subcu. 02/16: Patient is seent 4S Found Resting Comfortably in Bed in No Acute Distress. Patient Does Have Shortness of Breath with Some Movement. However She Has Been Utilizing Her Incentive Spirometer and Ambulatory within the Room. Patient Denies Any Diarrhea at This Time. Patient Remains Afebrile, heart rate 60, respirations 17, blood pressure 132/78, pulse ox 93% on 6 L nasal cannula. We'll continue with albuterol inhaler, vitamin supplements, dexamethasone, and Lovenox. 02/17: Patient is seen on 4 S. She is resting in bed. Patient states that she is more tired compared to yesterday. However she was more active yesterday. He continues to have some shortness of breath with movement however she is able to converse without any shortness of breath. Patient has been utilizing her incentive spirometer is complaining of sores within the month. Patient was sta rted on nystatin swish and swallow. 02/18: Patient was seen resting comfortably, no shortness of breath or chest pain, however she does have daily symptoms of dyspnea, she is currently at 6 L nasal cannula, with pulse oximetry 95%. However when we had ambulated the patient today, her pulse oximetry dropped down to 80%, she is given nystatin swish and swallow, her blood sugars are elevated, in the 200 today, we'll going to increase the NovoLog to 7 units pre-meal, keep the long-acting the same. She is on dexamethasone, not on baricitinib or remdesivir continue to monitor for cytokine markers 02/19: Patient states that she has been walking in her room and also spending quite a bit of time in recliner. Patient has edema to the bilateral lower extremities but states she is unable to tolerate Lasix which causes her blood pressure to drop. Patient will be started on metolazone Thursday with a dose starting today. She is continued on IV dexamethasone, Lovenox, vitamin supplements. Capillary blood glucose running between 152 and 250. Repeat d-dimer 7.44, LDH 427, C-reactive protein 7.1. Pulse ox 95% on 6 L nasal cannula, afebrile, heart rate 74, blood pressure 131/83. REVIEW OF SYSTEMS Constitutional: No fever, no chills, no night sweats. No weight change. Reports weakness, reports fatigue no lethargy. No daytime sleepiness. EENT: No headache. No blurred vision or double vision, no loss of vision. No loss of Hearing, no ringing in the ears, no dizziness. No nasal drainage or congestion. No epistaxis. No sore throat. Lungs: Reports shortness of breath, reports cough, no sputum production. No wheezing. Reports dyspnea with exertion. Cardiovascular: No chest pain, no lower extremity edema. No palpitations. No paroxysmal nocturnal dyspnea. No orthopnea. No lightheadedness or dizziness. No syncopal episodes. Abdominal: No abdominal pain. No nausea, vomiting. Reports diarrhea, resolved. No constipation. No bloody or tarry stools. No loss of appetite. Genitourinary: No dysuria, increased frequency, urgency. No urinary retention. Musculoskeletal: Reports myalgias. Reports muscle weakness, no gait dysfuncti on, no frequent falls. No back pain. No neck pain. Integumentary: No wounds, no lesions. No rash or pruritus. No unusual bruising. No change in hair or nails. Neurologic: No aphasia. No facial droop. No change in mentation. No head injury. No headache. No paralysis. No paresthesia. Psychiatric: No depression. No anxiety. No mood swings. Endocrine: Noted abnormal blood sugars. No weight change. No excessive sweating or thirst. No cold intolerance. PHYSICAL EXAMINATION Gen: This is a 65-year-old obese female. Patient is resting in bed appears to be comfortable and in no acute distress. She is currently on oxygen at 6 L nasal cannula. HEENT: Head is atraumatic, normocephalic. Pupils equal, round. Sclerae is anicteric. NECK: Supple. No JVD. No lymphadenopathy. No thyromegaly. LUNGS: Few scattered bilateral rhonchi. No intercostal retractions. HEART: Regular rate and rhythm. No murmur. ABDOMEN: Soft. Bowel sounds are present. No masses. No tenderness. EXTREMITIES: No pedal edema. No calf tenderness. NEUROLOGICAL: Patient is awake, alert and oriented x3. Cranial nerves 2 through 12 are grossly intact. ASSESSMENT AND PLAN 1. Acute hypoxic respiratory failure secondary to Covid 19 pneumonia. Patient has been started on dexamethasone 6 mg IV push twice daily, Lovenox 40 mg subcu daily, albuterol inhaler as needed, Vitamin supplements will be added, consult with pulmonary medicine appreciated. Continue oxygen therapy currently at 6 L nasal cannula, attempt to wean oxygen down. 2. Hypertension. Continue losartan 25 mg daily, verapamil 240 mg at bedtime. 3. Hypothyroidism. Continue levothyroxine 112 g daily. 4. Diabetes mellitus type 2, diet-controlled, uncontrolled with hyperglycemia secondary to steroids. Continue on Levemir 15 units daily, NovoLog 7 units 3 times daily with meals and continue on NovoLog scale before meals and at bedtime. 5. Ulcerations mouth related to infection. Nystatin swish and swallow 6. GI prophylaxis. Protonix. 7. DVT prophylaxis. Lovenox. DISCHARGE PLAN Home Impression and plan of care have been directed as dictated by the signing physician. Phoebe Rausch nurse practitioner acting as scribe for signing physician. Objective - Vital Signs Vital signs: Vital Signs Temp 98.2 F 02/19/21 10:00 Pulse 74 02/19/21 10:00 Resp 18 02/19/21 10:00 BP 131/83 02/19/21 10:00 Pulse Ox 95 02/19/21 10:00 Intake & Output 02/18/21 02/19/21 02/19/21 18:59 06:59 18:59 Intake Total 1750 1000 Balance 1750 1000 Intake: Oral 1750 1000 Other: Voiding Method Toilet Toilet # Voids 2 3 # Bowel Movements 1 - Labs CBC & Chem 7: 02/14/21 07:32 02/14/21 07:32 Labs: Abnormal Lab Results - Last 24 Hours (Table) 02/14/21 02/18/21 02/18/21 Range/Units 07:32 11:54 16:58 D-Dimer (<0.60) mg/L FEU POC Glucose (mg/dL) 245 H 241 H (75-99) mg/dL Hemoglobin A1c 9.2 H (4.0-6.0) % 02/18/21 02/19/21 02/19/21 Range/Units 20:41 06:10 06:54 D-Dimer 7.44 H (<0.60) mg/L FEU POC Glucose (mg/dL) 220 H 152 H (75-99) mg/dL Hemoglobin A1c (4.0-6.0) % Microbiology - Last 24 Hours (Table) 02/13/21 20:45 Blood Culture - Preliminary Blood No Growth after 120 hours 02/13/21 20:48 Blood Culture - Preliminary Blood No Growth after 120 hours
[2021-02-19 16:47] LABS: Glucose,Whole Blood 332 mg/dL (75-99)
[2021-02-19 19:41] LABS: Glucose,Whole Blood 339 mg/dL (75-99)
[2021-02-19] MEDS: polyethylene glycoL 3350 17 GM POWD.PACK PO SCH (19:43)
[2021-02-19] MEDS: VERAPAMIL SR 240 MG TABLET.ER PO SCH (19:59)
[2021-02-20] MEDS: LEVOTHYROXINE 112 MCG TAB PO SCH (06:28)
[2021-02-20 06:53] LABS: Glucose,Whole Blood 204 mg/dL (75-99)
[2021-02-20] MEDS: INSULIN ASPART (NovoLOG) 100 UNIT/ML VIAL SQ SCH ×7 (08:01→20:11)
[2021-02-20] MEDS: ENOXAPARIN 40 MG/0.4 ML SYRINGE SQ SCH (08:01)
[2021-02-20] MEDS: INSULIN DETEMIR (LEVEMIR) 100 UNIT/ML SYR SQ SCH (08:01)
[2021-02-20] MEDS: ASCORBIC ACID 500 MG TAB PO SCH (08:02)
[2021-02-20] MEDS: ZINC SULFATE 220 MG CAP PO SCH (08:02)
[2021-02-20] MEDS: DOCUSATE 100 MG CAP PO SCH (08:02)
[2021-02-20] MEDS: NYSTATIN 100,000 UNIT/ML SUSP 500,000 UNIT/5 ML CUP PO SCH ×4 (08:02→19:11)
[2021-02-20] MEDS: DEXAMETHASONE SOD PHOSPHATE 10 MG/ML 1 ML VIAL IVP SCH (08:02)
[2021-02-20] MEDS: PANTOPRAZOLE 40 MG TABLET PO SCH (08:02)
[2021-02-20] MEDS: CHOLECALCIFEROL 25 MCG (1000 IU) TABLET PO SCH (08:02)
[2021-02-20] MEDS: LOSARTAN 25 MG TAB PO SCH (08:03)
[2021-02-20] MEDS: metOLazone 2.5 MG TAB PO SCH (08:03)
[2021-02-20 11:34] LABS: Glucose,Whole Blood 268 mg/dL (75-99)
--- NOTE | 2021-02-20 16:06 | P.PN ---
Subjective Progress Note Date: 02/20/21 HISTORY OF PRESENT ILLNESS This is a 65-year-old female patient of Saulo García NP with medical history of hypertension, hypothyroidism, diabetes mellitus type 2 diet controlled. Patient gives history of being sick about 5 days before [place] with a runny nose continued to worsen and then lost her sense of taste and smell last week for about 5 days. 2 days ago she had a Covid test at [place] [facility] which was positive. She was monitoring her pulse ox at home and had a drop down to 84%. She had contacted her PCP and was told to come in the hospital. Patient denies having any fever. She complains of shortness of breath, chest congestion, diarrhea which is been going on before . She denies any blood in her stools. She states until now she has been exercising every day until yesterday. She has history of hyperlipidemia and has lost 60 pounds to control cholesterol level. Patient presented to [facility] emergency center. She was found to be afebrile, heart rate 84, blood pressure 131/67, respiratory rate 20, pulse ox 89 % on room air. CBC unremarkable. Sodium 132, potassium 3.5, chloride 96, CO2 26, BUN 13 and creatinine 0.57. Blood sugar 206. D-dimer 1.2. Lactic acid normal. LDH 1066. CRP 15. Pro-calcitonin 0.07. Troponin negative. EKG sinus rhythm with no acute changes. Chest x-ray reveals interstitial pulmonary edema. This could be acute pneumonia. CTA of the chest revealsno evidence of pulmonary embolism. Extensive bilateral interstitial groundglass pneumonia. 02/15: Patient states that she is feeling really tired and feels about the same regarding her shortness of breath. She has significant shortness of breath with minimal movement. She is utilizing incentive spirometry. Diarrhea has resolved . Patient has been afebrile, heart rate 61, blood pressure 130/67, pulse ox 91% on 6 L nasal cannula. Blood sugars have been elevated in the 300s up to 406. Levemir 15 units daily added as well as NovoLog 5 units with meals and continue NovoLog scale. Patient is seen and followed by pulmonary medicine. Patient is continued on albuterol inhaler, vitamin supplements, dexamethasone 6 mg IV push twice daily, Lovenox subcu. 02/16: Patient is seent 4S Found Resting Comfortably in Bed in No Acute Distress. Patient Does Have Shortness of Breath with Some Movement. However She Has Been Utilizing Her Incentive Spirometer and Ambulatory within the Room. Patient Denies Any Diarrhea at This Time. Patient Remains Afebrile, heart rate 60, respirations 17, blood pressure 132/78, pulse ox 93% on 6 L nasal cannula. We'll continue with albuterol inhaler, vitamin supplements, dexamethasone, and Lovenox. 02/17: Patient is seen on 4 S. She is resting in bed. Patient states that she is more tired compared to yesterday. However she was more active yesterday. He continues to have some shortness of breath with movement however she is able to converse without any shortness of breath. Patient has been utilizing her incentive spirometer is complaining of sores within the month. Patient was sta rted on nystatin swish and swallow. 02/18: Patient was seen resting comfortably, no shortness of breath or chest pain, however she does have daily symptoms of dyspnea, she is currently at 6 L nasal cannula, with pulse oximetry 95%. However when we had ambulated the patient today, her pulse oximetry dropped down to 80%, she is given nystatin swish and swallow, her blood sugars are elevated, in the 200 today, we'll going to increase the NovoLog to 7 units pre-meal, keep the long-acting the same. She is on dexamethasone, not on baricitinib or remdesivir continue to monitor for cytokine markers 02/19: Patient states that she has been walking in her room and also spending quite a bit of time in recliner. Patient has edema to the bilateral lower extremities but states she is unable to tolerate Lasix which causes her blood pressure to drop. Patient will be started on metolazone Thursday with a dose starting today. She is continued on IV dexamethasone, Lovenox, vitamin supplements. Capillary blood glucose running between 152 and 250. Repeat d-dimer 7.44, LDH 427, C-reactive protein 7.1. Pulse ox 95% on 6 L nasal cannula, afebrile, heart rate 74, blood pressure 131/83. 02/20: No flexes 94% on 5 L nasal cannula. She is an afebrile, heart rate in the 60s and 70s, blood pressure 115/74. Capillary blood glucose running anywhere between 204 and 339. Levemir will be increased to 20 units daily and NovoLog to 10 units with meals. Chest x-ray from yesterday reveals diffuse bilateral infiltrates are mildly progress. Anticipate possible discharge in the next 1-2 days. REVIEW OF SYSTEMS Constitutional: No fever, no chills, no night sweats. No weight change. Reports weakness, reports fatigue no lethargy. No daytime sleepiness. EENT: No headache. No blurred vision or double vision, no loss of vision. No loss of Hearing, no ringing in the ears, no dizziness. No nasal drainage or congestion. No epistaxis. No sore throat. Lungs: Reports shortness of breath, reports cough, no sputum production. No wheezing. Reports dyspnea with exertion. Cardiovascular: No chest pain, no lower extremity edema. No palpitations. No paroxysmal nocturnal dyspnea. No orthopnea. No lightheadedness or dizziness. No syncopal episodes. Abdominal: No abdominal pain. No nausea, vomiting. Reports diarrhea, resolved. No constipation. No bloody or tarry stools. No loss of appetite. Genitourinary: No dysuria, increased frequency, urgency. No urinary retention. Musculoskeletal: Reports myalgias. Reports muscle weakness, no gait dysfun ction, no frequent falls. No back pain. No neck pain. Integumentary: No wounds, no lesions. No rash or pruritus. No unusual bruising. No change in hair or nails. Neurologic: No aphasia. No facial droop. No change in mentation. No head injury. No headache. No paralysis. No paresthesia. Psychiatric: No depression. No anxiety. Endocrine: Noted abnormal blood sugars. No weight change. No excessive sweating or thirst. No cold intolerance. PHYSICAL EXAMINATION Gen: This is a 65-year-old obese female. Patient is resting in bed appears to be comfortable and in no acute distress. She is currently on oxygen at 5 L nasal cannula. HEENT: Head is atraumatic, normocephalic. Pupils equal, round. Sclerae is anicteric. NECK: Supple. No JVD. No lymphadenopathy. No thyromegaly. LUNGS: Few scattered bilateral rhonchi. No intercostal retractions. HEART: Regular rate and rhythm. No murmur. ABDOMEN: Soft. Bowel sounds are present. No masses. No tenderness. EXTREMITIES: No pedal edema. No calf tenderness. NEUROLOGICAL: Patient is awake, alert and oriented x3. Cranial nerves 2 through 12 are grossly intact. ASSESSMENT AND PLAN 1. Acute hypoxic respiratory failure secondary to Covid 19 pneumonia. Patient has been started on dexamethasone 6 mg IV push twice daily, Lovenox 40 mg subcu daily, albuterol inhaler as needed, Vitamin supplements will be added, consult with pulmonary medicine appreciated. Continue oxygen therapy currently at 5 L nasal cannula, attempt to wean oxygen down. 2. Hypertension. Continue losartan 25 mg daily, verapamil 240 mg at bedtime. 3. Hypothyroidism. Continue levothyroxine 112 g daily. 4. Diabetes mellitus type 2, diet-controlled, uncontrolled with hyperglycemia secondary to steroids. Continue on Levemir 15 units daily, NovoLog 7 units 3 times daily with meals and continue on NovoLog scale before meals and at bedtime. 5. Ulcerations mouth related to infection. Nystatin swish and swallow 6. GI prophylaxis. Protonix. 7. DVT prophylaxis. Lovenox. DISCHARGE PLAN Home in the next 24-48 hours. Impression and plan of care have been directed as dictated by the signing physician. Phoebe Rausch nurse practitioner acting as scribe for signing physician. Objective - Vital Signs Vital signs: Vital Signs Temp 98 F 02/20/21 09:00 Pulse 70 02/20/21 09:00 Resp 18 02/20/21 09:00 BP 115/74 02/20/21 09:00 Pulse Ox 92 L 02/20/21 09:00 Intake & Output 02/19/21 02/20/21 02/20/21 18:59 06:59 18:59 Intake Total 1000 Balance 1000 Weight 112.491 kg Intake: Oral 1000 Other: Voiding Method Toilet # Voids 3 2 # Bowel Movements 1 - Labs CBC & Chem 7: 02/14/21 07:32 02/14/21 07:32 Labs: Abnormal Lab Results - Last 24 Hours (Table) 02/19/21 02/19/21 02/19/21 Range/Units 06:10 11:51 16:45 POC Glucose (mg/dL) 250 H 332 H (75-99) mg/dL Lactate Dehydrogenase 427 H (120-246) U/L C-Reactive Protein 7.10 H (0.00-0.80) mg/dL 02/19/21 02/20/21 Range/Units 19:40 06:51 POC Glucose (mg/dL) 339 H 204 H (75-99) mg/dL Lactate Dehydrogenase (120-246) U/L C-Reactive Protein (0.00-0.80) mg/dL Microbiology - Last 24 Hours (Table) 02/13/21 20:45 Blood Culture - Final Blood No Growth after 144 hours 02/13/21 20:48 Blood Culture - Final Blood No Growth after 144 hours
[2021-02-20 16:25] LABS: Glucose,Whole Blood 428 mg/dL (75-99)
--- NOTE | 2021-02-20 17:29 | P.PN ---
Subjective Progress Note Date: 02/20/21 Principal diagnosis: Hypoxemic, shortness of breath This 65-year-old white female patient with past medical history of diet- controlled diabetes mellitus, hypertension, hypothyroidism, obesity, previous history of appendectomy and tubal ligation, who presented to the emergency de partment on 02/13/2021 for evaluation of persistent shortness of breath and cough, she reports symptom onset on 01/28/2022, she tested positive on 01/30/2022 for COVID 19. She is not vaccinated against COVID-19. Yesterday she noted that her pulse ox was low between 80 and 85% which was a change from previously being in the mid 90s range. In addition she was having symptoms of shortness of breath, cough, body aches, nausea and generalized weakness. Chest x-ray showed interstitial pulmonary edema. Her lab work showed white blood cell count of 8.2, hemoglobin of 14.5, lymphocyte count is 0.9, d-dimer was 1.2, sodium was 132, potassium is 3.5, chloride is 96, BUN is 13, creatinine 0.57, ferritin is 1831, AST was 53, ALT was 37, LDH was 1066, troponin was less than 0.012, CRP was 15.5, pro-calcitonin level was negative at 0.07, patient has been started Decadron 6 mg twice daily, multivitamins including vitamin C, vitamin D and zinc, she is on prophylactic dose of Lovenox. She is currently requiring 4 L of oxygen her pulse ox is 88-92%. On 02/15/2021 patient seen in follow-up on medical surgical floor. Patient still feels fatigued, short of breath with exertion, but she is able to eat up and walk to the bathroom, cholecystectomy it fairly well, she is currently on 6 L of oxygen pulse ox is 91-92%, she is working on incentive spirometer, she is achieving 1000 mL on the today, signs have been stable, afebrile, hemodynamically stable, no worsening cough no worsening dyspnea, her appetite is fair, her diarrhea has stopped. No abdominal pain. On 02/17/2021 patient seen in follow-up on medical surgical floor, she is resting in bed, does not appear to be in any acute distress, she is currently on 6 L of oxygen pulse ox is 91-95%, she states she is just feeling more fatigued today. And she is complaining of mouth soreness, she did develop oral thrush and was started on nystatin, in addition she is having some dysuria, and she states her blood pressure was noted to be low yesterday, currently not on any antibiotics, she continues on dexamethasone 6 mg daily, she is on Lovenox 40 mg daily, she is on multi-vitamins. Pulse ox is 96% on 6 L, she's been afebrile. Urinalysis will be sent. She is tolerating oral intake. No nausea vomiting or diarrhea, abdomen is soft. On 02/18/2021 patient seen in follow-up on medical surgical floor, she is resting comfortably in bed, she remains on 6 L of oxygen, her pulse ox is currently at 91%, she has exertional dyspnea, but appears to be in no acute distress, overall breathing seems to be stable without worsening dyspnea, or cough, no complete chest discomfort, she's been afebrile, vital signs have been stable, no fever or chills, he continues on Decadron 6 mg daily, she remains on prophylactic dose of Lovenox, she is on vitamins of vitamin C, vitamin D, and zinc. Lower extremity Dopplers were negative for DVT. Yesterday patient was complaining of some dysuria, urinalysis was sent and was negative for any infect ion, her inflammatory markers were improving a couple days ago, no new labs today. No acute events overnight, appetite is fair, no nausea vomiting or diarrhea. On 02/19/2021 patient seen in follow-up on medical surgical floor. She is awake and alert, in no acute distress, on 6 L of oxygen her pulse ox is 95%, no worsening dyspnea, occasional cough, no complete the chest discomfort. She's had no acute events overnight, she has been afebrile. She was subsequently dropped down to 3 L FiO2, and her pulse ox is 90%, continues to breathe comfortably. Today's labs have been reviewed, d-dimer is up to 7.44, inflammatory markers are improving since admission. Fairly stable compared to yesterday's levels. On 02/20/2021 patient seen in follow-up on medical surgical floor. She is resting comfortably in bed, she was able to walk to the bathroom today, she had 2 bowel movements today, her breathing has been stable, she is down to 5 L of oxygen pulse ox of 92%, no fever or chills, overall improving. No acute events overnight. No fever or chills. Last chest x-ray was yesterday showing diffuse bilateral infiltrates. No new labs today. But sugars are significantly elevated, in the 3-400 range, patient remains on Decadron 6 mg daily, she is on mealtime NovoLog 10 units with every meal plus the scale. She remains on multivitamins, and Lovenox 40 mg daily. Objective - Vital Signs Vital signs: Vital Signs Temp 98.4 F 02/20/21 16:35 Pulse 70 02/20/21 16:35 Resp 17 02/20/21 16:35 BP 124/67 02/20/21 16:35 Pulse Ox 89 L 02/20/21 16:35 Intake & Output 02/19/21 02/20/21 02/20/21 18:59 06:59 18:59 Intake Total 1000 Balance 1000 Weight 112.491 kg Intake: Oral 1000 Other: Voiding Method Toilet Toilet # Voids 3 2 # Bowel Movements 1 - Exam GENERAL EXAM: Alert, very pleasant, 65-year-old white female, on 5 L of oxygen with a pulse ox of 91-92% comfortable in no apparent distress. HEAD: Normocephalic/atraumatic. EYES: Normal reaction of pupils, equal size. Conjunctiva pink, sclera white. NOSE: Clear with pink turbinates. THROAT: No erythema or exudates. NECK: No masses, no JVD, no thyroid enlargement, no adenopathy. CHEST: No chest wall deformity. Symmetrical expansion. LUNGS: Equal air entry with diffuse bilateral crackles CVS: Regular rate and rhythm, normal S1 and S2, no gallops, no murmurs, no rubs ABDOMEN: Soft, nontender. No hepatosplenomegaly, normal bowel sounds, no guarding or rigidity. EXTREMITIES: No clubbing, no edema, no cyanosis, 2+ pulses and upper and lower extremities. MUSCULOSKELETAL: Muscle strength and tone normal. SPINE: No scoliosis or deformity SKIN: No rashes CENTRAL NERVOUS SYSTEM: Alert and oriented -3. No focal deficits, tone is normal in all 4 extremities. PSYCHIATRIC: Alert and oriented -3. Appropriate affect. Intact judgment and insight. - Labs CBC & Chem 7: 02/14/21 07:32 02/14/21 07:32 Labs: Abnormal Lab Results - Last 24 Hours (Table) 02/19/21 02/20/21 02/20/21 Range/Units 19:40 06:51 11:32 POC Glucose (mg/dL) 339 H 204 H 268 H (75-99) mg/dL 02/20/21 Range/Units 16:10 POC Glucose (mg/dL) 428 H (75-99) mg/dL Microbiology - Last 24 Hours (Table) 02/13/21 20:45 Blood Culture - Final Blood No Growth after 144 hours 02/13/21 20:48 Blood Culture - Final Blood No Growth after 144 hours Assessment and Plan Plan: Assessment: #1. Acute hypoxic respiratory failure related to acute COVID-19 related pneumonia, with onset of symptoms on 01/28/2022, tested positive on 01/30/2022, non-vaccinated, admitted to the hospital on 02/13/2021, outside the window for Remdesivir #2. Elevated inflammatory markers related to the above, improving #3. Mild hyponatremia likely hypovolemic, improving #4. Diabetes mellitus type 2, diet controlled, with steroid induced hypoglycemia #5. Morbid obesity with BMI of 38.8 kg/m #6. Hypertension #7. Hypothyroidism #8. Elevated d-dimer, with no CTA evidence of pulmonary embolism, lower extremity Dopplers were completed and were negative for DVT Plan: No worsening dyspnea, breathing comfortably Vital signs have been stable, no fever or chills Increase activity as tolerated Continue current dose Decadron, and Lovenox No worsening dyspnea, no worsening cough Encourage deep breathing and coughing, If remains stable on 5 L supplemental oxygen or less may consider discharge home in next 24-48 hours I performed a history & physical examination of the patient and discussed their management with my nurse practitioner, Eleanor Son. I reviewed the nurse practitioner's note and agree with the documented findings and plan of care. Lung sounds are positive for diffuse crackles throughout the lung [place]. The findings and the impression was discussed with the patient. I attest to the documentation by the nurse practitioner. Time with Patient: Less than 30
[2021-02-20] MEDS: polyethylene glycoL 3350 17 GM POWD.PACK PO SCH (19:08)
[2021-02-20] MEDS: VERAPAMIL SR 240 MG TABLET.ER PO SCH (19:11)
[2021-02-20 20:00] LABS: Glucose,Whole Blood 370 mg/dL (75-99)
[2021-02-21] MEDS: LEVOTHYROXINE 112 MCG TAB PO SCH (05:35)
[2021-02-21] MEDS ORDERED: INSULIN DETEMIR (LEVEMIR) 100 UNIT/ML SYR SQ SCH (07:00)
[2021-02-21 07:25] LABS: Glucose,Whole Blood 153 mg/dL (75-99)
[2021-02-21] MEDS: PANTOPRAZOLE 40 MG TABLET PO SCH (08:02)
[2021-02-21] MEDS: ZINC SULFATE 220 MG CAP PO SCH (08:02)
[2021-02-21] MEDS: ASCORBIC ACID 500 MG TAB PO SCH (08:02)
[2021-02-21] MEDS: LOSARTAN 25 MG TAB PO SCH (08:02)
[2021-02-21] MEDS: DOCUSATE 100 MG CAP PO SCH (08:02)
[2021-02-21] MEDS: DEXAMETHASONE SOD PHOSPHATE 10 MG/ML 1 ML VIAL IVP SCH (08:03)
[2021-02-21] MEDS: INSULIN ASPART (NovoLOG) 100 UNIT/ML VIAL SQ SCH ×7 (08:03→20:19)
[2021-02-21] MEDS: CHOLECALCIFEROL 25 MCG (1000 IU) TABLET PO SCH (08:03)
[2021-02-21] MEDS: ENOXAPARIN 40 MG/0.4 ML SYRINGE SQ SCH (08:03)
[2021-02-21] MEDS: NYSTATIN 100,000 UNIT/ML SUSP 500,000 UNIT/5 ML CUP PO SCH ×4 (08:04→20:13)
--- NOTE | 2021-02-21 08:47 | XR ---
EXAMINATION TYPE: XR chest 1V portable DATE OF EXAM: 02/21/2021 Comparison: 02/19/2021 Clinical History: 65-year-old female COVID Findings: Heart borderline in size. Diffuse interstitial and patchy opacities persist without significant oconnor e. No pneumothorax or pleural effusion. Impression: Bilateral interstitial and patchy COVID infiltrates remain unchanged.
[2021-02-21 11:05] LABS: Basophils # (A) 0.01 X 10*3/uL (0.00-0.10); Basophils % (A) 0.1 %; HCT 40.3 % (37.2-46.3); HGB 13.3 g/dL (12.0-15.0); Lymphocytes # (A) 1.42 X 10*3/uL (0.90-5.00); Lymphocytes % (A) 14.5 %; MCH 29.2 pg (27.0-32.0); MCV 88.4 fL (80.0-97.0); Mean Platelet Volume 10.6 fL (9.5-12.2); Monocytes # (A) 0.77 X 10*3/uL (0.20-1.00); Monocytes % (A) 7.9 %; Neutrophils # (A) 7.38 X 10*3/uL (1.80-7.70); Neutrophils % (A) 75.5 %; Platelet Count 337 X 10*3/uL (140-440); RBC 4.56 X 10*6/uL (4.10-5.20); RDW 13.1 % (11.5-14.5); WBC 9.78 X 10*3/uL (4.50-10.00)
[2021-02-21 12:02] LABS: Glucose,Whole Blood 193 mg/dL (75-99)
[2021-02-21] MEDS: metFORMIN 850 MG TAB PO SCH ×2 (12:13→17:09)
[2021-02-21 12:27] LABS: African American GFR (CKD) 109.5 (60.0-200.0); Albumin 3.6 g/dL (3.8-4.9); Albumin/Globulin Ratio 1.37 (1.60-3.17); Anion Gap 12.5 mmol/L (10.00-18.00); BUN/Creat Ratio 28.09 Ratio (12.00-20.00); Blood Urea Nitrogen 17.5 mg/dL (9.0-27.0); C Reactive Protein 3.7 mg/dL (0.00-0.80); Calcium 9.3 mg/dL (8.7-10.3); Globulin 2.6 g/dL (1.6-3.3); Non-African American GFR(CKD) 94.5 (60.0-200.0); Potassium 5.1 mmol/L (3.5-5.5); Total Bilirubin 0.6 mg/dL (0.30-1.20); Total Protein 6.2 g/dL (6.2-8.2)
--- NOTE | 2021-02-21 14:50 | P.PN ---
Subjective Progress Note Date: 02/21/21 HISTORY OF PRESENT ILLNESS This is a 65-year-old female patient of Saulo García NP with medical history of hypertension, hypothyroidism, diabetes mellitus type 2 diet controlled. Patient gives history of being sick about 5 days before [place] with a runny nose continued to worsen and then lost her sense of taste and smell last week for about 5 days. 2 days ago she had a Covid test at [place] drive-through which was positive. She was monitoring her pulse ox at home and had a drop down to 84%. She had contacted her PCP and was told to come in the hospital. Patient denies having any fever. She complains of shortness of breath, chest congestion, diarrhea which is been going on before . She denies any blood in her stools. She states until now she has been exercising every day until yesterday. She has history of hyperlipidemia and has lost 60 pounds to control cholesterol level. Patient presented to [facility] emergency center. She was found to be afebrile, heart rate 84, blood pressure 131/67, respiratory rate 20, pulse ox 89 % on room air. CBC unremarkable. Sodium 132, potassium 3.5, chloride 96, CO2 26, BUN 13 and creatinine 0.57. Blood sugar 206. D-dimer 1.2. Lactic acid normal. LDH 1066. CRP 15. Pro-calcitonin 0.07. Troponin negative. EKG sinus rhythm with no acute changes. Chest x-ray reveals interstitial pulmonary edema. This could be acute pneumonia. CTA of the chest revealsno evidence of pulmonary embolism. Extensive bilateral interstitial groundglass pneumonia. 02/15: Patient states that she is feeling really tired and feels about the same regarding her shortness of breath. She has significant shortness of breath with minimal movement. She is utilizing incentive spirometry. Diarrhea has resolved . Patient has been afebrile, heart rate 61, blood pressure 130/67, pulse ox 91% on 6 L nasal cannula. Blood sugars have been elevated in the 300s up to 406. Levemir 15 units daily added as well as NovoLog 5 units with meals and continue NovoLog scale. Patient is seen and followed by pulmonary medicine. Patient is continued on albuterol inhaler, vitamin supplements, dexamethasone 6 mg IV push twice daily, Lovenox subcu. 02/16: Patient is seent 4S Found Resting Comfortably in Bed in No Acute Distress. Patient Does Have Shortness of Breath with Some Movement. However She Has Been Utilizing Her Incentive Spirometer and Ambulatory within the Room. Patient Denies Any Diarrhea at This Time. Patient Remains Afebrile, heart rate 60, respirations 17, blood pressure 132/78, pulse ox 93% on 6 L nasal cannula. We'll continue with albuterol inhaler, vitamin supplements, dexamethasone, and Lovenox. 02/17: Patient is seen on 4 S. She is resting in bed. Patient states that she is more tired compared to yesterday. However she was more active yesterday. He continues to have some shortness of breath with movement however she is able to converse without any shortness of breath. Patient has been utilizing her incentive spirometer is complaining of sores within the month. Patient was sta rted on nystatin swish and swallow. 02/18: Patient was seen resting comfortably, no shortness of breath or chest pain, however she does have daily symptoms of dyspnea, she is currently at 6 L nasal cannula, with pulse oximetry 95%. However when we had ambulated the patient today, her pulse oximetry dropped down to 80%, she is given nystatin swish and swallow, her blood sugars are elevated, in the 200 today, we'll going to increase the NovoLog to 7 units pre-meal, keep the long-acting the same. She is on dexamethasone, not on baricitinib or remdesivir continue to monitor for cytokine markers 02/19: Patient states that she has been walking in her room and also spending quite a bit of time in recliner. Patient has edema to the bilateral lower extremities but states she is unable to tolerate Lasix which causes her blood pressure to drop. Patient will be started on metolazone Thursday with a dose starting today. She is continued on IV dexamethasone, Lovenox, vitamin supplements. Capillary blood glucose running between 152 and 250. Repeat d-dimer 7.44, LDH 427, C-reactive protein 7.1. Pulse ox 95% on 6 L nasal cannula, afebrile, heart rate 74, blood pressure 131/83. 02/20: No flexes 94% on 5 L nasal cannula. She is an afebrile, heart rate in the 60s and 70s, blood pressure 115/74. Capillary blood glucose running anywhere between 204 and 339. Levemir will be increased to 20 units daily and NovoLog to 10 units with meals. Chest x-ray from yesterday reveals diffuse bilateral infiltrates are mildly progress. Anticipate possible discharge in the next 1-2 days. 02/21: Seen today sitting up in recliner history comfortable at rest. Hemoglobin A1c is 9.2 and Levemir will be discontinued and patient started on NPH 15 units with breakfast and continue NovoLog 10 units with meals along with NovoLog scale. Pulse ox is currently 90-94% on 5 L nasal cannula. She's been afebrile, heart rate 74, blood pressure 107/62. Repeat blood work reveals d-dimer 3.66. Sodium 131, CO2 28, creatinine 2.6. Blood sugars were running up to 428. Blood cultures no growth. REVIEW OF SYSTEMS Constitutional: No fever, no chills, no night sweats. No weight change. Reports weakness, reports fatigue no lethargy. No daytime sleepiness. EENT: No headache. No blurred vision or double vision, no loss of vision. No loss of Hearing, no ringing in the ears, no dizziness. No nasal drainage or congestion. No epistaxis. No sore throat. Lungs: Reports shortness of breath, reports cough, reports sputum production. No wheezing. Reports dyspnea with exertion. Cardiovascular: No chest pain, no lower extremity edema. No palpitations. No p aroxysmal nocturnal dyspnea. No orthopnea. No lightheadedness or dizziness. No syncopal episodes. Abdominal: No abdominal pain. No nausea, vomiting. Reports diarrhea, resolved. No constipation. No bloody or tarry stools. No loss of appetite. Genitourinary: No dysuria, increased frequency, urgency. No urinary retention. Musculoskeletal: Reports myalgias. Reports muscle weakness, no gait d ysfunction, no frequent falls. No back pain. No neck pain. Integumentary: No wounds, no lesions. No rash or pruritus. No unusual bruising. No change in hair or nails. Neurologic: No aphasia. No facial droop. No change in mentation. No head injury. No headache. No paralysis. No paresthesia. Psychiatric: No depression. No anxiety. Endocrine: Noted abnormal blood sugars. No weight change. No excessive sweating or thirst. No cold intolerance. PHYSICAL EXAMINATION Gen: This is a 65-year-old obese female. Patient is resting in bed appears to be comfortable and in no acute distress. She is currently on oxygen at 5 L nasal cannula. HEENT: Head is atraumatic, normocephalic. Pupils equal, round. Sclerae is anicteric. NECK: Supple. No JVD. No lymphadenopathy. No thyromegaly. LUNGS: Few scattered bilateral rhonchi. No intercostal retractions. HEART: Regular rate and rhythm. No murmur. ABDOMEN: Soft. Bowel sounds are present. No masses. No tenderness. EXTREMITIES: No pedal edema. No calf tenderness. NEUROLOGICAL: Patient is awake, alert and oriented x3. Cranial nerves 2 through 12 are grossly intact. ASSESSMENT AND PLAN 1. Acute hypoxic respiratory failure secondary to Covid 19 pneumonia. Patient has been started on dexamethasone 6 mg IV push twice daily, Lovenox 40 mg subcu daily, albuterol inhaler as needed, Vitamin supplements will be added, consult with pulmonary medicine appreciated. Continue oxygen therapy currently at 5 L nasal cannula, attempt to wean oxygen down. 2. Hypertension. Continue losartan 25 mg daily, verapamil 240 mg at bedtime. 3. Hypothyroidism. Continue levothyroxine 112 g daily. 4. Diabetes mellitus type 2, diet-controlled, uncontrolled with hyperglycemia secondary to steroids. A1c 9.2. Patient started on NPH 15 units with breakfast and continue NovoLog 10 units with meals and continue on NovoLog scale before meals and at bedtime. 5. Ulcerations mouth related to infection. Nystatin swish and swallow 6. GI prophylaxis. Protonix. 7. DVT prophylaxis. Lovenox. DISCHARGE PLAN Home in the next 24-48 hours. Impression and plan of care have been directed as dictated by the signing physician. Phoebe Rausch nurse practitioner acting as scribe for signing physician. Objective - Vital Signs Vital signs: Vital Signs Temp 98.1 F 02/21/21 05:59 Pulse 66 02/21/21 05:59 Resp 16 02/21/21 05:59 BP 108/70 02/21/21 05:59 Pulse Ox 94 L 02/21/21 09:03 Intake & Output 02/20/21 02/21/21 02/21/21 18:59 06:59 18:59 Intake Total 300 Balance 300 Intake: Oral 300 Other: Voiding Method Toilet Toilet Toilet # Voids 3 4 # Bowel Movements 2 - Labs CBC & Chem 7: 02/21/21 06:34 02/21/21 06:34 Labs: Abnormal Lab Results - Last 24 Hours (Table) 02/20/21 02/20/21 02/21/21 Range/Units 16:10 19:58 06:34 Immature Gran # 0.10 H (0.00-0.04) X 10*3/uL D-Dimer (<0.60) mg/L FEU POC Glucose (mg/dL) 428 H 370 H (75-99) mg/dL 02/21/21 02/21/21 Range/Units 06:34 07:24 Immature Gran # (0.00-0.04) X 10*3/uL D-Dimer 3.66 H (<0.60) mg/L FEU POC Glucose (mg/dL) 153 H (75-99) mg/dL
[2021-02-21 16:27] LABS: Glucose,Whole Blood 273 mg/dL (75-99)
--- NOTE | 2021-02-21 17:23 | P.PN ---
Subjective Progress Note Date: 02/21/21 Principal diagnosis: Hypoxemic, shortness of breath This 65-year-old white female patient with past medical history of diet- controlled diabetes mellitus, hypertension, hypothyroidism, obesity, previous history of appendectomy and tubal ligation, who presented to the emergency de partment on 02/13/2021 for evaluation of persistent shortness of breath and cough, she reports symptom onset on 01/28/2022, she tested positive on 01/30/2022 for COVID 19. She is not vaccinated against COVID-19. Yesterday she noted that her pulse ox was low between 80 and 85% which was a change from previously being in the mid 90s range. In addition she was having symptoms of shortness of breath, cough, body aches, nausea and generalized weakness. Chest x-ray showed interstitial pulmonary edema. Her lab work showed white blood cell count of 8.2, hemoglobin of 14.5, lymphocyte count is 0.9, d-dimer was 1.2, sodium was 132, potassium is 3.5, chloride is 96, BUN is 13, creatinine 0.57, ferritin is 1831, AST was 53, ALT was 37, LDH was 1066, troponin was less than 0.012, CRP was 15.5, pro-calcitonin level was negative at 0.07, patient has been started Decadron 6 mg twice daily, multivitamins including vitamin C, vitamin D and zinc, she is on prophylactic dose of Lovenox. She is currently requiring 4 L of oxygen her pulse ox is 88-92%. On 02/15/2021 patient seen in follow-up on medical surgical floor. Patient still feels fatigued, short of breath with exertion, but she is able to eat up and walk to the bathroom, cholecystectomy it fairly well, she is currently on 6 L of oxygen pulse ox is 91-92%, she is working on incentive spirometer, she is achieving 1000 mL on the today, signs have been stable, afebrile, hemodynamically stable, no worsening cough no worsening dyspnea, her appetite is fair, her diarrhea has stopped. No abdominal pain. On 02/17/2021 patient seen in follow-up on medical surgical floor, she is resting in bed, does not appear to be in any acute distress, she is currently on 6 L of oxygen pulse ox is 91-95%, she states she is just feeling more fatigued today. And she is complaining of mouth soreness, she did develop oral thrush and was started on nystatin, in addition she is having some dysuria, and she states her blood pressure was noted to be low yesterday, currently not on any antibiotics, she continues on dexamethasone 6 mg daily, she is on Lovenox 40 mg daily, she is on multi-vitamins. Pulse ox is 96% on 6 L, she's been afebrile. Urinalysis will be sent. She is tolerating oral intake. No nausea vomiting or diarrhea, abdomen is soft. On 02/18/2021 patient seen in follow-up on medical surgical floor, she is resting comfortably in bed, she remains on 6 L of oxygen, her pulse ox is currently at 91%, she has exertional dyspnea, but appears to be in no acute distress, overall breathing seems to be stable without worsening dyspnea, or cough, no complete chest discomfort, she's been afebrile, vital signs have been stable, no fever or chills, he continues on Decadron 6 mg daily, she remains on prophylactic dose of Lovenox, she is on vitamins of vitamin C, vitamin D, and zinc. Lower extremity Dopplers were negative for DVT. Yesterday patient was complaining of some dysuria, urinalysis was sent and was negative for any infect ion, her inflammatory markers were improving a couple days ago, no new labs today. No acute events overnight, appetite is fair, no nausea vomiting or diarrhea. On 02/19/2021 patient seen in follow-up on medical surgical floor. She is awake and alert, in no acute distress, on 6 L of oxygen her pulse ox is 95%, no worsening dyspnea, occasional cough, no complete the chest discomfort. She's had no acute events overnight, she has been afebrile. She was subsequently dropped down to 3 L FiO2, and her pulse ox is 90%, continues to breathe comfortably. Today's labs have been reviewed, d-dimer is up to 7.44, inflammatory markers are improving since admission. Fairly stable compared to yesterday's levels. On 02/20/2021 patient seen in follow-up on medical surgical floor. She is resting comfortably in bed, she was able to walk to the bathroom today, she had 2 bowel movements today, her breathing has been stable, she is down to 5 L of oxygen pulse ox of 92%, no fever or chills, overall improving. No acute events overnight. No fever or chills. Last chest x-ray was yesterday showing diffuse bilateral infiltrates. No new labs today. But sugars are significantly elevated, in the 3-400 range, patient remains on Decadron 6 mg daily, she is on mealtime NovoLog 10 units with every meal plus the scale. She remains on multivitamins, and Lovenox 40 mg daily. On 02/21/2021 patient seen in follow-up on medical surgical floor. She is resting comfortably in bed, has had no acute events overnight, she remains on 5 L of oxygen and her pulse ox is 90-94%, breathing comfortably, FiO2 has further been cut back to 4 L, no worsening dyspnea, patient has been tolerating ambulation in the room, she's been utilizing a walker. She's been walking to the bathroom, she's been afebrile, hemodynamically she has been stable. Today's chest x-ray showing bilateral interstitial patchy quit infiltrates unchanged. Today's labs have been reviewed, white blood cell count is 9.7, hemoglobin is 13.3, d-dimer is improving and is down to 3.6, sodium is 131, potassium is 5.1, chloride is 90, CO2 is 28, BUN is 17.5, creatinine 0.6. Inflammatory markers are improving, LDH is down to 368, CRP is 3.7. Objective - Vital Signs Vital signs: Vital Signs Temp 98.1 F 02/21/21 14:00 Pulse 71 02/21/21 14:00 Resp 18 02/21/21 14:00 BP 112/72 02/21/21 14:00 Pulse Ox 92 L 02/21/21 14:00 Intake & Output 02/20/21 02/21/21 02/21/21 18:59 06:59 18:59 Intake Total 300 Balance 300 Intake: Oral 300 Other: Voiding Method Toilet Toilet Toilet # Voids 3 4 # Bowel Movements 2 - Exam GENERAL EXAM: Alert, very pleasant, 65-year-old white female, on 4L of oxygen with a pulse ox of 92% comfortable in no apparent distress. HEAD: Normocephalic/atraumatic. EYES: Normal reaction of pupils, equal size. Conjunctiva pink, sclera white. NOSE: Clear with pink turbinates. THROAT: No erythema or exudates. NECK: No masses, no JVD, no thyroid enlargement, no adenopathy. CHEST: No chest wall deformity. Symmetrical expansion. LUNGS: Equal air entry with diffuse bilateral crackles CVS: Regular rate and rhythm, normal S1 and S2, no gallops, no murmurs, no rubs ABDOMEN: Soft, nontender. No hepatosplenomegaly, normal bowel sounds, no guarding or rigidity. EXTREMITIES: No clubbing, no edema, no cyanosis, 2+ pulses and upper and lower extremities. MUSCULOSKELETAL: Muscle strength and tone normal. SPINE: No scoliosis or deformity SKIN: No rashes CENTRAL NERVOUS SYSTEM: Alert and oriented -3. No focal deficits, tone is normal in all 4 extremities. PSYCHIATRIC: Alert and oriented -3. Appropriate affect. Intact judgment and insight. - Labs CBC & Chem 7: 02/21/21 06:34 02/21/21 06:34 Labs: Abnormal Lab Results - Last 24 Hours (Table) 02/20/21 02/21/21 02/21/21 Range/Units 19:58 06:34 06:34 Immature Gran # 0.10 H (0.00-0.04) X 10*3/uL D-Dimer 3.66 H (<0.60) mg/L FEU Sodium (135-145) mmol/L Chloride (96-109) mmol/L Carbon Dioxide (20.0-27.5) mmol/L BUN/Creatinine Ratio (12.00-20.00) Ratio Glucose (70-110) mg/dL POC Glucose (mg/dL) 370 H (75-99) mg/dL Lactate Dehydrogenase (120-246) U/L C-Reactive Protein (0.00-0.80) mg/dL Albumin (3.8-4.9) g/dL Albumin/Globulin Ratio (1.60-3.17) g/dL 02/21/21 02/21/21 02/21/21 Range/Units 06:34 07:24 12:00 Immature Gran # (0.00-0.04) X 10*3/uL D-Dimer (<0.60) mg/L FEU Sodium 131 L (135-145) mmol/L Chloride 90 L (96-109) mmol/L Carbon Dioxide 28.0 H (20.0-27.5) mmol/L BUN/Creatinine Ratio 28.09 H (12.00-20.00) Ratio Glucose 179 H (70-110) mg/dL POC Glucose (mg/dL) 153 H 193 H (75-99) mg/dL Lactate Dehydrogenase 368 H (120-246) U/L C-Reactive Protein 3.70 H (0.00-0.80) mg/dL Albumin 3.6 L (3.8-4.9) g/dL Albumin/Globulin Ratio 1.37 L (1.60-3.17) g/dL 02/21/21 Range/Units 16:26 Immature Gran # (0.00-0.04) X 10*3/uL D-Dimer (<0.60) mg/L FEU Sodium (135-145) mmol/L Chloride (96-109) mmol/L Carbon Dioxide (20.0-27.5) mmol/L BUN/Creatinine Ratio (12.00-20.00) Ratio Glucose (70-110) mg/dL POC Glucose (mg/dL) 273 H (75-99) mg/dL Lactate Dehydrogenase (120-246) U/L C-Reactive Protein (0.00-0.80) mg/dL Albumin (3.8-4.9) g/dL Albumin/Globulin Ratio (1.60-3.17) g/dL Assessment and Plan Plan: Assessment: #1. Acute hypoxic respiratory failure related to acute COVID-19 related pneumonia, with onset of symptoms on 01/28/2022, tested positive on 01/30/2022, non-vaccinated, admitted to the hospital on 02/13/2021, outside the window for Remdesivir #2. Elevated inflammatory markers related to the above, improving #3. Mild hyponatremia likely hypovolemic, improving #4. Diabetes mellitus type 2, diet controlled, with steroid induced hypoglycemia #5. Morbid obesity with BMI of 38.8 kg/m #6. Hypertension #7. Hypothyroidism #8. Elevated d-dimer, with no CTA evidence of pulmonary embolism, lower extremity Dopplers were completed and were negative for DVT Plan: No worsening dyspnea, breathing comfortably Supplemental oxygen is down to 4 L, patient denies any worsening dyspnea or cough Vital signs have been stable, no fever or chills Increase activity as tolerated Continue current dose Decadron, and Lovenox Encourage deep breathing and coughing, If remains stable, may consider discharge home in the next 24 hours I performed a history & physical examination of the patient and discussed their management with my nurse practitioner, Eleanor Son. I reviewed the nurse practitioner's note and agree with the documented findings and plan of care. Lung sounds are positive for diffuse crackles throughout the lung [place]. The findings and the impression was discussed with the patient. I attest to the documentation by the nurse practitioner. Time with Patient: Less than 30
[2021-02-21] MEDS: VERAPAMIL SR 240 MG TABLET.ER PO SCH (20:13)
[2021-02-21] MEDS: polyethylene glycoL 3350 17 GM POWD.PACK PO SCH (20:14)
[2021-02-21 20:16] LABS: Glucose,Whole Blood 205 mg/dL (75-99)
[2021-02-22] MEDS: LEVOTHYROXINE 112 MCG TAB PO SCH (05:39)
[2021-02-22 07:06] LABS: Glucose,Whole Blood 97 mg/dL (75-99)
[2021-02-22] MEDS: INSULIN ASPART (NovoLOG) 100 UNIT/ML VIAL SQ SCH ×4 (07:08→12:37)
[2021-02-22] MEDS: ASCORBIC ACID 500 MG TAB PO SCH (07:25)
[2021-02-22] MEDS: DOCUSATE 100 MG CAP PO SCH (07:25)
[2021-02-22] MEDS: NYSTATIN 100,000 UNIT/ML SUSP 500,000 UNIT/5 ML CUP PO SCH ×2 (07:25→12:35)
[2021-02-22] MEDS: PANTOPRAZOLE 40 MG TABLET PO SCH (07:25)
[2021-02-22] MEDS: metFORMIN 850 MG TAB PO SCH (07:25)
[2021-02-22] MEDS: LOSARTAN 25 MG TAB PO SCH (07:25)
[2021-02-22] MEDS: CHOLECALCIFEROL 25 MCG (1000 IU) TABLET PO SCH (07:25)
[2021-02-22] MEDS: ZINC SULFATE 220 MG CAP PO SCH (07:25)
[2021-02-22] MEDS: metOLazone 2.5 MG TAB PO SCH (07:26)
[2021-02-22] MEDS: DEXAMETHASONE SOD PHOSPHATE 10 MG/ML 1 ML VIAL IVP SCH (07:27)
[2021-02-22] MEDS: ENOXAPARIN 40 MG/0.4 ML SYRINGE SQ SCH (07:28)
[2021-02-22] MEDS ORDERED: INSULIN NPH 300 UNIT/3 ML VIAL SQ SCH (07:30)
--- NOTE | 2021-02-22 10:09 | P.DS ---
Providers Date of admission: 02/13/21 23:13 Expected date of discharge: 02/22/21 Attending physician: Landon Miller Consults: 02/13/21 23:11 Consult Physician Routine Consulting Provider: Ulysses Flowers Consult Reason/Comments: Covid 19 pneumonia, Hypoxic respiratory failure Do you want consulting provider notified?: Yes, Notify in am Primary care physician: Physician Nonstaff Hospital Course: HISTORY OF PRESENT ILLNESS This is a 65-year-old female patient of Saulo García NP with medical history of hypertension, hypothyroidism, diabetes mellitus type 2 diet controlled. Patient gives history of being sick about 5 days before with a runny nose continued to worsen and then lost her sense of taste and smell last week for about 5 days. 2 days ago she had a Covid test at [facility] which was positive. She was monitoring her pulse ox at home and had a drop down to 84%. She had contacted her PCP and was told to come in the hospital. Patient denies having any fever. She complains of shortness of breath, chest congestion, diarrhea which is been going on before . She denies any blood in her stools. She states until now she has been exercising every day until yesterday. She has history of hyperlipidemia and has lost 60 pounds to control cholesterol level. Patient presented to [facility] emergency center. She was found to be afebrile, heart rate 84, blood pressure 131/67, respiratory rate 20, pulse ox 89 % on room air. CBC unremarkable. Sodium 132, potassium 3.5, chloride 96, CO2 26, BUN 13 and creatinine 0.57. Blood sugar 206. D-dimer 1.2. Lactic acid normal. LDH 1066. CRP 15. Pro-calcitonin 0.07. Troponin negative. EKG sinus rhythm with no acute changes. Chest x-ray reveals interstitial pulmonary edema. This could be acute pneumonia. CTA of the chest revealsno evidence of pulmonary embolism. Extensive bilateral interstitial groundglass pneumonia. 02/15: Patient states that she is feeling really tired and feels about the same regarding her shortness of breath. She has significant shortness of breath with minimal movement. She is utilizing incentive spirometry. Diarrhea has resolved. Patient has been afebrile, heart rate 61, blood pressure 130/67, pulse ox 91% on 6 L nasal cannula. Blood sugars have been elevated in the 300s up to 406. Levemir 15 units daily added as well as NovoLog 5 units with meals and continue NovoLog scale. Patient is seen and followed by pulmonary medicine. Patient is continued on albuterol inhaler, vitamin supplements, dexamethasone 6 mg IV push twice daily, Lovenox subcu. 02/16: Patient is seent 4S Found Resting Comfortably in Bed in No Acute Distress. Patient Does Have Shortness of Breath with Some Movement. However She Has Been Utilizing Her Incentive Spirometer and Ambulatory within the Room. Patient Denies Any Diarrhea at This Time. Patient Remains Afebrile, heart rate 60, respirations 17, blood pressure 132/78, pulse ox 93% on 6 L nasal cannula. We'll continue with albuterol inhaler, vitamin supplements, dexamethasone, and Lovenox. 02/17: Patient is seen on 4 S. She is resting in bed. Patient states that she is more tired compared to yesterday. However she was more active yesterday. He continues to have some shortness of breath with movement however she is able to converse without any shortness of breath. Patient has been utilizing her incentive spirometer is complaining of sores within the month. Patient was started on nystatin swish and swallow. 02/18: Patient was seen resting comfortably, no shortness of breath or chest pain, however she does have daily symptoms of dyspnea, she is currently at 6 L nasal cannula, with pulse oximetry 95%. However when we had ambulated the patient today, her pulse oximetry dropped down to 80%, she is given nystatin swish and swallow, her blood sugars are elevated, in the 200 today, we'll going to increase the NovoLog to 7 units pre-meal, keep the long-acting the same. She is on dexamethasone, not on baricitinib or remdesivir continue to monitor for cytokine markers 02/19: Patient states that she has been walking in her room and also spending quite a bit of time in recliner. Patient has edema to the bilateral lower extremities but states she is unable to tolerate Lasix which causes her blood pressure to drop. Patient will be started on metolazone Thursday with a dose starting today. She is continued on IV dexamethasone, Lovenox, vitamin supplements. Capillary blood glucose running between 152 and 250. Repeat d-dimer 7.44, LDH 427, C-reactive protein 7.1. Pulse ox 95% on 6 L nasal cannula, afebrile, heart rate 74, blood pressure 131/83. 02/20: No flexes 94% on 5 L nasal cannula. She is an afebrile, heart rate in the 60s and 70s, blood pressure 115/74. Capillary blood glucose running anywhere between 204 and 339. Levemir will be increased to 20 units daily and NovoLog to 10 units with meals. Chest x-ray from yesterday reveals diffuse bilateral infiltrates are mildly progress. Anticipate possible discharge in the next 1-2 days. 02/21: Seen today sitting up in recliner history comfortable at rest. Hemoglobin A1c is 9.2 and Levemir will be discontinued and patient started on NPH 15 units with breakfast and continue NovoLog 10 units with meals along with NovoLog scale. Pulse ox is currently 90-94% on 5 L nasal cannula. She's been afebrile, heart rate 74, blood pressure 107/62. Repeat blood work reveals d-dimer 3.66. Sodium 131, CO2 28, creatinine 2.6. Blood sugars were running up to 428. Blood cultures no growth. 02/22: patient is resting in recliner and appears to becomfortable at rest. She is currently on 3 L nasal cannula with pulse ox of 93-95%. manager garage will make arrangements for home oxygen therapy.Her blood glucose running between 97 and 273. Patient will be placed on oral diabetic agents for home which will need to be continued and possibly adjusted after she is off steroids.patient will be discharged home today in stable condition. DISCHARGE DIAGNOSES 1. Acute hypoxic respiratory failure secondary to Covid 19 pneumonia. 2. Hypertension. 3. Hypothyroidism. 4. Diabetes mellitus type 2, diet-controlled, uncontrolled with hyperglycemia secondary to steroids. A1c 9.2. 5. Ulcerations mouth related to infection. DISCHARGE PLAN Home Greater than 35 minutes was utilized and coordinating patient's discharge. Impression and plan of care have been directed as dictated by the signing physician. Phoebe Rausch nurse practitioner acting as scribe for signing physician. Patient Condition at Discharge: Stable Plan - Discharge Summary Discharge Rx Participant: No New Discharge Prescriptions: New polyethylene glycoL 3350 [Miralax] 17 gm PO HS packet Nystatin 100,000 Unit/ml Susp [Mycostatin Oral Susp] 500,000 unit PO QID #100 ml Ascorbic Acid [Vitamin C] 1,000 mg PO DAILY tab Glimepiride [Amaryl] 2 mg PO BID #60 tablet Docusate [Colace] 100 mg PO DAILY cap Dexamethasone [Decadron] 6 mg PO DAILY #5 tablet metFORMIN HCL [Glucophage] 850 mg PO BID-W/MEALS #60 tab Zinc Sulfate [Orazinc] 220 mg PO DAILY cap Pantoprazole [Protonix] 40 mg PO AC-BRKFST #30 tab Albuterol Inhaler [Ventolin Hfa Inhaler] 2 puff INHALATION RT-Q6H PRN #18 gm PRN Reason: Shortness Of Breath Or Wheezing metOLazone [Zaroxolyn] 2.5 mg PO MoWeFr@0900 #12 tab Continue Ibuprofen [Motrin] 400 mg PO Q8HR PRN PRN Reason: Pain Verapamil HCl [Verapamil ER] 240 mg PO 1700 Losartan Potassium [Cozaar] 25 mg PO DAILY Levothyroxine Sodium 112 mcg PO DAILY Ergocalciferol (Vitamin D2) [Drisdol (50,000 Iu)] 1,250 mcg PO IBARRA Cider Vinegar [Apple Cider Vinegar] 300 mg PO DAILY Discharge Medication List Ibuprofen [Motrin] 400 mg PO Q8HR PRN 10/02/14 [History] Verapamil HCl [Verapamil ER] 240 mg PO 1700 10/02/14 [History] Losartan Potassium [Cozaar] 25 mg PO DAILY 03/24/17 [History] Cider Vinegar [Apple Cider Vinegar] 300 mg PO DAILY 02/13/21 [History] Ergocalciferol (Vitamin D2) [Drisdol (50,000 Iu)] 1,250 mcg PO IBARRA 02/13/21 [History] Levothyroxine Sodium 112 mcg PO DAILY 02/13/21 [History] Albuterol Inhaler [Ventolin Hfa Inhaler] 2 puff INHALATION RT-Q6H PRN #18 gm 02/22/21 [Rx] Ascorbic Acid [Vitamin C] 1,000 mg PO DAILY tab 02/22/21 [Rx] Dexamethasone [Decadron] 6 mg PO DAILY #5 tablet 02/22/21 [Rx] Docusate [Colace] 100 mg PO DAILY cap 02/22/21 [Rx] Glimepiride [Amaryl] 2 mg PO BID #60 tablet 02/22/21 [Rx] Nystatin 100,000 Unit/ml Susp [Mycostatin Oral Susp] 500,000 unit PO QID #100 ml 02/22/21 [Rx] Pantoprazole [Protonix] 40 mg PO AC-BRKFST #30 tab 02/22/21 [Rx] Zinc Sulfate [Orazinc] 220 mg PO DAILY cap 02/22/21 [Rx] metFORMIN HCL [Glucophage] 850 mg PO BID-W/MEALS #60 tab 02/22/21 [Rx] metOLazone [Zaroxolyn] 2.5 mg PO MoWeFr@0900 #12 tab 02/22/21 [Rx] polyethylene glycoL 3350 [Miralax] 17 gm PO HS packet 02/22/21 [Rx] Follow up Appointment(s)/Referral(s): Perlita García, NPC [Family Provider] - 1 Week (office not answering please call to schedule appointment ) [facility] [NON-STAFF] - As Needed (oxygen ) Ulysses Flowers DO [Doctor of Osteopathic Medicine] - 03/19/21 2:45 pm (With Michelle Mcrae) Patient Instructions/Handouts: Coronavirus Disease 2019 (COVID-19) Discharge Disposition: HOME SELF-CARE
[2021-02-22 11:36] LABS: Glucose,Whole Blood 183 mg/dL (75-99)
--- NOTE | 2021-02-22 14:08 | P.PN ---
Subjective Progress Note Date: 02/22/21 on today's evaluation, the patient is feeling great. She has been weaned down to 3 L of oxygen by nasal cannula and she is able to maintain a saturation above 90%. She is not having any significant respiratory distress at rest. With mobility and activity, she is still having some limited dyspnea. She feels that she is able to go home today on home oxygen. In oxygen concentrator was arranged for this patient to be used on outpatient basis. She will also purchase his own pulse oximeter. No fever. No chills. Noaltered mentation. Blood sugar from today's at 183. Noted the patient's of the matter markers are all improving. LDH level was down to 368at a CRP level was down to 3.7. Her electrolytes were all normal. Her d-dimer was at 3.66 from yesterday. The white cell count from yesterday was 9.7. Objective - Vital Signs Vital signs: Vital Signs Temp 98.3 F 02/22/21 10:00 Pulse 73 02/22/21 10:00 Resp 15 02/22/21 10:00 BP 110/64 02/22/21 10:00 Pulse Ox 95 02/22/21 10:00 Intake & Output 02/21/21 02/22/21 02/22/21 18:59 06:59 18:59 Intake Total 1080 Balance 1080 Intake: Oral 1080 Other: Voiding Method Toilet Toilet # Voids 3 3 - Exam - Exam GENERAL EXAM: Alert, very pleasant, 65-year-old white female, on 3L of oxygen with a pulse ox of 92% comfortable in no apparent distress. HEAD: Normocephalic/atraumatic. EYES: Normal reaction of pupils, equal size. Conjunctiva pink, sclera white. NOSE: Clear with pink turbinates. THROAT: No erythema or exudates. NECK: No masses, no JVD, no thyroid enlargement, no adenopathy. CHEST: No chest wall deformity. Symmetrical expansion. LUNGS: Equal air entry with diffuse bilateral crackles CVS: Regular rate and rhythm, normal S1 and S2, no gallops, no murmurs, no rubs ABDOMEN: Soft, nontender. No hepatosplenomegaly, normal bowel sounds, no gu arding or rigidity. EXTREMITIES: No clubbing, no edema, no cyanosis, 2+ pulses and upper and lower e xtremities. MUSCULOSKELETAL: Muscle strength and tone normal. SPINE: No scoliosis or deformity SKIN: No rashes CENTRAL NERVOUS SYSTEM: Alert and oriented -3. No focal deficits, tone is normal in all 4 extremities. PSYCHIATRIC: Alert and oriented -3. Appropriate affect. Intact judgment and insight. - Labs CBC & Chem 7: 02/21/21 06:34 02/21/21 06:34 Labs: Abnormal Lab Results - Last 24 Hours (Table) 02/21/21 02/21/21 02/22/21 Range/Units 16:26 20:15 11:34 POC Glucose (mg/dL) 273 H 205 H 183 H (75-99) mg/dL Assessment and Plan Plan: #1. Acute hypoxic respiratory failure related to acute COVID-19 related pneumonia, with onset of symptoms on 01/28/2022, tested positive on 01/30/2022, non-vaccinated, admitted to the hospital on 02/13/2021, outside the window for Remdesivir. The patient was treated with steroids and oxygen and anticoagulation. Clinically improved. Oxygen flow has been weaned down to 3 liters per minute nasal cannula and the patient will be able to go home with a home oxygen concentrator. She may need oxygen therapy for another few weeks as she is recovering from the Covid 19 pneumonia. #2. Elevated inflammatory markers related to the above, improving #3. Mild hyponatremia likely hypovolemic, improved #4. Diabetes mellitus type 2, diet controlled, with steroid induced hypoglycemia #5. Morbid obesity with BMI of 38.8 kg/m #6. Hypertension #7. Hypothyroidism #8. Elevated d-dimer, with no CTA evidence of pulmonary embolism, lower extremity Dopplers were completed and were negative for DVT, noted inflammatory markers also improved.the d-dimer was down to 3.66 from yesterday. Plan: discharge home on 3 L of oxygen by nasal cannula Arrangement home concentrator Complete a course of Decadron 6 mg on a daily basis Resume all medications Contact us back if there is any worsening Follow-up in the office in 2-3 weeks time
[2021-02-22 14:49] VITALS: BP 100/65; PULSE 85; RESP 16; TEMP 98.6
== END 2021-02-22 15:43 | disposition home or self-care (01) | DRG 177 ==
LOC: EC 16:16 → 4SSUR 23:13
PROVIDERS: ADMIT Internal Medicine Geriatric Medicine; ATTEND Internal Medicine Geriatric Medicine
DX: U07.1 COVID-19 (principal); J12.82 Pneumonia due to coronavirus disease 2019; J96.01 Acute respiratory failure with hypoxia; I26.99 Other pulmonary embolism without acute cor pulmonale; J81.1 Chronic pulmonary edema; E87.1 Hypo-osmolality and hyponatremia; B37.0 Candidal stomatitis; T38.0X5A Adverse effect of glucocorticoids and synthetic analogues, initial encounter; Z68.38 Body mass index [BMI] 38.0-38.9, adult; Z79.4 Long term (current) use of insulin; I10 Essential (primary) hypertension; Z90.49 Acquired absence of other specified parts of digestive tract; Z82.5 Family history of asthma and other chronic lower respiratory diseases; Z82.49 Family history of ischemic heart disease and other diseases of the circulatory system; Z80.3 Family history of malignant neoplasm of breast; Z79.899 Other long term (current) drug therapy; Z79.890 Hormone replacement therapy; E86.1 Hypovolemia; E78.5 Hyperlipidemia, unspecified; E66.01 Morbid (severe) obesity due to excess calories; E11.65 Type 2 diabetes mellitus with hyperglycemia; E03.9 Hypothyroidism, unspecified; R79.89 Other specified abnormal findings of blood chemistry; R19.7 Diarrhea, unspecified
CPT/HCPCS: 36415; 71045; 71046; 71275; 80053; 81003; 82728; 83036; 83605; 83615; 83735; 84145; 84484; 85025; 85379; 85610; 85730; 86140; 87040; 87635; 93005; 93970; 94760; 96374; 96375; 99291

== ENCOUNTER → 2022-01-24 | Outpatient (CLI) | payer MEDICARE ==
--- NOTE | 2022-01-27 12:58 | MM ---
Reason for Exam: Screening (asymptomatic). Last mammogram was performed 1 year(s) and 11 month(s) ago. Patient History: Menarche at age 13. Patient has no children. Postmenopausal. Paternal grandmother had breast cancer. Paternal aunt had breast cancer, age 70. Maternal aunt had breast cancer. Mother had breast cancer, age 68. Risk Values: Karen 5 year model risk: 3.3%. NCI Lifetime model risk: 11.5%. Prior Study Comparison: 11/19/2017 Bilateral Screening Mammogram, [facility]. 01/26/2019 Bilateral Screening Mammogram, [facility]. 02/28/2020 Bilateral Screening Mammogram, [facility]. Tissue Density: There are scattered fibroglandular densities. Findings: Analyzed By CAD. Pattern appears symmetrical and stable. No suspicious groups of microcalcifications, spiculated or lobular masses, architectural distortion or other secondary signs of malignancy are mammographically apparent. Overall Assessment: Benign, BI-RAD 2 Management: Screening Mammogram of both breasts in 1 year. A negative mammogram report should not preclude additional follow up of suspicious palpable abnormalities. Patient should continue monthly self breast exam. A clinical breast exam by your physician is recommended on an annual basis and results should be correlated with mammographic findings. Electronically signed and approved by: Amador Duval D.O. Radiologis
== END | disposition home or self-care (01) ==
LOC: RADMAMWWP 13:50
PROVIDERS: ATTEND Family Medicine
DX: Z12.31 Encounter for screening mammogram for malignant neoplasm of breast (principal); Z78.0 Asymptomatic menopausal state; Z80.3 Family history of malignant neoplasm of breast
CPT/HCPCS: 77063; 77067

== ENCOUNTER → 2023-01-27 | Outpatient (CLI) | payer MEDICARE ==
--- NOTE | 2023-01-28 08:43 | MM ---
Reason for Exam: Screening (asymptomatic). Last screening mammogram was performed 12 month(s) ago. Patient History: Menarche at age 13. Patient has no children. Postmenopausal. Paternal grandmother had breast cancer. Paternal aunt had breast cancer, age 70. Maternal aunt had breast cancer. Mother had breast cancer, age 68. Risk Values: Karen 5 year model risk: 3.3%. NCI Lifetime model risk: 11.1%. Prior Study Comparison: 01/26/2019 Bilateral Screening Mammogram, [facility]. 02/28/2020 Bilateral Screening Mammogram, [facility]. 01/24/2022 Bilateral MG 3D screening mammo w/cad, [facility]. Tissue Density: There are scattered fibroglandular densities. Findings: Analyzed By CAD. There is no suspicious group of microcalcifications or new suspicious mass in either breast. Overall Assessment: Negative, BI-RAD 1 Management: Screening Mammogram of both breasts in 1 year. . Patient should continue monthly self-breast exams. A clinical breast exam by your physician is recommended on an annual basis. This exam should not preclude additional follow-up of suspicious palpable abnormalities. Note on Karen scores and lifetime risk: 1. A Karen score greater than 3% is considered moderate risk. If this is the case, consider specialist referral to assess eligibility for a risk reducing agent. 2. If overall lifetime risk for the development of breast cancer is 20% or higher, the patient may qualify for future screening with alternating mammogram and breast MRI. Electronically signed and approved by: Madhu Bell M.D. Radiologis
== END | disposition home or self-care (01) ==
LOC: RADMAMWWP 06:51
PROVIDERS: ATTEND Family Medicine
DX: Z12.31 Encounter for screening mammogram for malignant neoplasm of breast (principal); Z78.0 Asymptomatic menopausal state; Z80.3 Family history of malignant neoplasm of breast
CPT/HCPCS: 77063; 77067

== ENCOUNTER → 2023-10-15 | Outpatient (CLI) | payer MEDICARE ==
[2023-10-15 10:51] LABS: Basophils # (A) 0.04 X 10*3/uL (0.00-0.10); Basophils % (A) 0.7 %; Eosinophils # (A) 0.15 X 10*3/uL (0.04-0.35); Eosinophils % (A) 2.5 %; HCT 42.6 % (37.2-46.3); HGB 14.2 g/dL (12.0-15.0); Lymphocytes # (A) 1.93 X 10*3/uL (0.90-5.00); Lymphocytes % (A) 31.8 %; MCH 30.5 pg (27.0-32.0); MCHC 33.3 g/dL (32.0-37.0); MCV 91.6 FL (80.0-97.0); Mean Platelet Volume 10.6 FL (9.5-12.2); Monocytes # (A) 0.45 X 10*3/uL (0.20-1.00); Monocytes % (A) 7.4 %; NRBC Per 100 WBC 0 X 10*3/uL (0.00-0.01); Neutrophils # (A) 3.47 X 10*3/uL (1.80-7.70); Neutrophils % (A) 57.3 %; Platelet Count 242 X 10*3/uL (140-440); RBC 4.65 X 10*6/uL (4.10-5.20); RDW 13.4 % (11.5-14.5); WBC 6.06 X 10*3/uL (4.50-10.00)
[2023-10-15 10:52] LABS: Chol/HDL Ratio 4.17 Ratio; LDL Cholesterol,Calculated 152.9 mg/dL (0.0-131.0)
[2023-10-15 10:53] LABS: ALT 21 U/L (8-44); AST 14 U/L (13-35); Albumin 4.7 g/dL (3.8-4.9); Albumin/Globulin Ratio 1.96 Ratio (1.60-3.17); Alkaline Phosphatase 79 U/L (41-126); BUN/Creat Ratio 28.17 Ratio (12.00-20.00); Blood Urea Nitrogen 16.9 mg/dL (9.0-27.0); Calcium 9.7 mg/dL (8.7-10.3); Carbon Dioxide 25.5 mmol/L (21.6-31.8); Chloride 103 mmol/L (96-109); Globulin 2.4 g/dL (1.6-3.3); Glucose 242 mg/dL (70-110); Potassium 4.3 mmol/L (3.5-5.5); Sodium 140 mmol/L (135-145); Total Bilirubin 0.6 mg/dL (0.3-1.2); Total Protein 7.1 g/dL (6.2-8.2)
== END | disposition home or self-care (01) ==
LOC: LABWHC1 06:59
PROVIDERS: ATTEND Family Medicine
DX: E78.5 Hyperlipidemia, unspecified
CPT/HCPCS: 36415; 80053; 80061; 83036; 85025

== ENCOUNTER → 2024-01-29 | Outpatient (CLI) | payer MEDICARE ==
--- NOTE | 2024-01-29 12:11 | MM ---
Reason for Exam: Screening (asymptomatic). Last screening mammogram was performed 12 month(s) ago. Patient History: Menarche at age 13. Patient has no children. Postmenopausal. Paternal grandmother had breast cancer. Paternal aunt had breast cancer, age 70. Maternal aunt had breast cancer. Mother had breast cancer, age 68. Risk Values: Karen 5 year model risk: 3.4%. NCI Lifetime model risk: 10.7%. Prior Study Comparison: 11/19/2017 Bilateral Screening Mammogram, [facility]. 01/26/2019 Bilateral Screening Mammogram, [facility]. 02/28/2020 Bilateral Screening Mammogram, [facility]. 01/24/2022 Bilateral MG 3D screening mammo w/cad, [facility]. 01/27/2023 Bilateral MG 3D screening mammo w/cad, [facility]. Tissue Density: There are scattered areas of fibroglandular density. Findings: Analyzed By CAD. There is no suspicious group of microcalcifications or new suspicious mass in either breast. Overall Assessment: Benign, BI-RAD 2 Management: Screening Mammogram of both breasts in 1 year. . Patient should continue monthly self-breast exams. A clinical breast exam by your physician is recommended on an annual basis. This exam should not preclude additional follow-up of suspicious palpable abnormalities. Note on Karen scores and lifetime risk: 1. A Karen score greater than 3% is considered moderate risk. If this is the case, consider specialist referral to assess eligibility for a risk reducing agent. 2. If overall lifetime risk for the development of breast cancer is 20% or higher, the patient may qualify for future screening with alternating mammogram and breast MRI. [facility], , 01/29/2024 12:08 PM. Electronically signed and approved by: Madhu Bell M.D. Radiologis
--- NOTE | 2024-01-29 14:20 | BD ---
EXAMINATION TYPE: Axial Bone Density DATE OF EXAM: 01/29/2024 CLINICAL HISTORY: 68 years old Female. ICD-10 CODE: Z78.0 ASYM MENOPAUSAL , Additional History: Height: 66 Weight: 230 FRAX RISK QUESTIONS: Alcohol (3 or more units per day): no Family History (Parent hip fracture): no Glucocorticoids (More than 3mos): no (Ex: prednisone, prednisolone, methylprednisolone, dexamethasone, and hydrocortisone). History of Fracture in Adulthood: no Secondary Osteoporosis: 1. Type 1 Diabetes: no 2. Hyperthyroidism: no 3. Menopause before 45: no 4. Malnutrition: no 5. Chronic liver disease: no Rheumatoid Arthritis: no Current Tobacco Use: no RISK FACTORS HISTORY OF: Surgery to Spine/Hip(right/left)/Wrist (right/left): no MEDICATIONS: Thyroid Medications: synthroid How Lon years EXAM MEASUREMENTS: Bone mineral densitometry was performed using the [employer]. Bone mineral density as measured about the Lumbar spine is: ----- L1-L4(G/cm2): 1.279 T Score Values are as follows: ----- L1: 1.1 ----- L2: 0.4 ----- L3: 0.8 ----- L4: 0.8 ----- L1-L4: 0.8 Z Score Values are as follows: ----- L1: 1.5 ----- L2: 0.9 ----- L3: 1.3 ----- L4: 1.3 ----- L1-L4: 1.3 Bone mineral density has: decreased -6.0 % since study of: 11.19.2017 Bone mineral density about the R hip (g/cm2): 1.010 Bone mineral density about the L hip (g/cm2): 1.044 T Score values are as follows: -----R Neck: -1.1 -----L Neck: -0.5 -----R Total: 0.0 -----L Total: 0.3 Z Score values are as follows: -----R Neck: -0.3 -----L Neck: 0.4 -----R Total: 0.6 -----L Total: 0.8 Bone mineral density has: decreased -9.8 % since study of: 11.19.2017 FRAX%s: The graph provided illustrates a 8.1% chance for a major osteoporotic fx and a 0.7% chance fo r the hips probability for fx in 10 years time. IMPRESSION: Normal (Values between +1 and -1 indicate normal bone mass). Consider repeating this study in 5 year s or sooner if there is some new clinical indication. NOTE: T-SCORE=SD OF THE YOUNG ADULT MEAN. [facility], , 01/29/2024 2:18 PM
== END | disposition home or self-care (01) ==
LOC: RADMAMWWP 07:03
PROVIDERS: ATTEND Family Medicine
DX: Z12.31 Encounter for screening mammogram for malignant neoplasm of breast (principal); Z78.0 Asymptomatic menopausal state; Z80.3 Family history of malignant neoplasm of breast; R92.323 Mammographic fibroglandular density, bilateral breasts
CPT/HCPCS: 77063; 77067; 77080